=== PATIENT | female | born 1960 | race Caucasian/White ===

== ENCOUNTER 2021-08-07 16:11 | Inpatient (IN) | payer MEDICAID, SELFPAY ==
[2021-08-07] VITALS (7 sets, daily range): BP systolic 116–134; BP diastolic 77–95; PULSE 128–137; RESP 18–22; TEMP 36.5; O2SAT 91–94; BMI 24.7; BMI 23.1
--- NOTE | 2021-08-07 16:13 | W.ED.SOB ---
Documented by User: Tad Manzo DO 08/15/21 14:24 HPI - SOB/Dyspnea General: Chief Complaint: Shortness of Breath/Dyspnea Stated Complaint: RESP DISTRESS Time Seen by Provider: 08/07/21 16:12 Source: patient Mode of arrival: EMS Limitations: no limitations History of Present Illness: HPI Narrative: 61-year-old female presents emergency room complaining of shortness of breath. Patient reports that she was recently treated for pneumonia and hospitalized about 2 weeks ago He has completed the antibiotics within the last week. Comes in today complaining of increasing shortness of breath. She feels like she has been breathing well since then. She has had it moderately productive cough. No chest pain. No vomiting no diarrhea. Patient has a known history of COPD. She does smoke she had been up to 2 packs a day she cut down to 1 pack a day recently because of the illness she has been smoking last. MD elicited complaint: shortness of breath Pertinent past history: COPD Onset (ago): minute(s) Context: recent illness (Recent pneumonia) Timing: constant Severity: moderate Exacerbating factors: exertion and coughing Relieving factors: oxygen, rest, bronchodilators and upright position Known history of: COPD Associated symptoms: Reports chest congestion and cough; Deny abdominal pain, chest pain, diaphoresis, dizziness, extremity pain, fever(s), hemoptysis, lightheadedness, myalgias, nausea, orthopnea, palpitations, paresthesias, polydipsia, polyuria, rash, sense of impending doom, syncope or vomiting Treatment prior to arrival: oxygen and bronchodilator Review of Systems Const: Denies: fever(s), chills or diaphoresis ENMT: Denies: throat pain, ear or mastoid pain, nasal discharge or nasal congestion Card: Denies: chest pain, palpitations, lightheadedness, syncope or orthopnea Resp: Reports: chest congestion; Denies: hemoptysis GI: Denies: abdominal pain, nausea or vomiting : Denies: flank pain, difficulty voiding, dysuria, urinary frequency or urinary urgency Musc: Denies: extremity pain Skin/Breast: Denies: rash or pruritus Neuro: Denies: dizziness Endo: Denies: polyuria or polydipsia PFS ED PFSH: Medical History COPD (chronic obstructive pulmonary disease) Pneumonia Social History Smoking and tobacco status: current every day smoker cigarettes Packs smoked per day: 1 [ Other cigarette details: Former 1 to 2 packs/day] Alcohol intake: current Physical Exam Const: GENERAL APPEARANCE: cooperative and comfortable ORIENTATION/CONSCIOUSNESS: Yes awake, Yes oriented to person, Yes oriented to place and Yes oriented to time HENMT: COMMON NORMALS: normocephalic, atraumatic and hearing grossly normal bilaterally HEAD & SCALP: normocephalic and atraumatic Resp: COMMON NORMALS: No retractions and No use of accessory muscles AUSCULTATION: diminished lung sounds on the right in the lower lung marie Cardio: COMMON NORMALS: regular rhythm and No murmurs present (Cardio) RATE: tachycardic RHYTHM: regular rhythm GI: COMMON NORMALS: Soft to palpation AUSCULTATION: Yes normoactive bowel sounds PALPATION: Yes Soft to palpation, No Tenderness to palpation present (GI), No Guarding due to palpation present (GI) and Yes Hepatomegaly present Extremity: COMMON NORMALS: normal to inspection, capillary refill normal, no clubbing, cyanosis or edema, no calf tenderness and no pedal edema Neuro: SENSORIUM/ORIENTATION: Yes oriented to person, Yes oriented to place and Yes oriented to time Skin: COMMON NORMALS: no rashes or lesions noted GENERAL SKIN EXAM: no rashes or lesions noted Course Vital Signs: Vital signs: Vital Signs Temperature 97.6 F 08/11/21 11:37 Pulse Rate 89 08/11/21 11:37 Respiratory Rate 18 08/11/21 11:37 Blood Pressure 107/69 08/11/21 11:37 Pulse Oximetry 94 08/11/21 11:54 MDM - SOB/Dyspnea Medical Decision Making Care signed out to Dr. Silvestre at change of shift. See final notes for diagnosis and disposition. Sure here isPatient presents here with shortness of breath took her over from Dr. Oconnor. Her CT does show large mass is likely cancerous with a pleural effusion no signs of abscess formation we will start her on antibiotics and admit her here at this time patient's been stable. Lab Data : 08/11/21 03:40 08/08/21 05:02 Labs/Radiology: Radiology Impressions Chest CTA 08/07/21 16:31 IMPRESSION: Infiltrative masslike soft tissue centered within the right lung base invading into the right hilum/mediastinum, early invasion of the right anterior chest wall, right pleura with large volume pleural effusion, and the pericardial fat. There is also masslike infiltration throughout the liver. These findings are compatible with malignancy/metastasis. Thoracentesis Ultrasound 08/08/21 13:30 IMPRESSION: 1. Uncomplicated ultrasound-guided RIGHT thoracentesis. Removal of 1000 cc bloody fluid 2. No pneumothorax on the post thoracentesis radiograph Chest X-Ray 08/08/21 13:47 IMPRESSION: Right lower lobe pleural effusion. No acute findings. Abdomen/Pelvis CT 08/10/21 13:41 IMPRESSION: 1. Too many to count lesions noted throughout the liver. Consistent with diffuse metastatic disease. 2. Renal cysts. 3. Right pleural and right diaphragmatic metastatic deposits as well as a large mass seen in the middle lobe extending to the mediastinum and heart. Laboratory Results WBC 11.7 10^3/uL (4.0-10.0) H 08/07/21 16:25 RBC 4.29 10^6/uL (4.1-5.3) 08/07/21 16:25 Hgb 13.6 g/dL (11.5-15.3) 08/07/21 16:25 Hct 40.0 % (37.0-47.0) 08/07/21 16:25 MCV 93.2 fl (81-99) 08/07/21 16:25 MCH 31.7 pg (28.0-34.0) 08/07/21 16:25 MCHC 34.0 g/dL (30.0-36.0) 08/07/21 16:25 RDW 13.9 % (12.1-15.1) 08/07/21 16:25 Plt Count 450 10^3/cmm (130-400) H 08/07/21 16:25 MPV 10.3 fL (7.4-10.4) 08/07/21 16:25 Neut % (Auto) 79.0 % 08/07/21 16:25 Lymph % (Auto) 12.6 % 08/07/21 16:25 [place] % (Auto) 7.4 % 08/07/21 16:25 Eos % (Auto) 0.0 % 08/07/21 16:25 Baso % (Auto) 0.3 % 08/07/21 16:25 Neut # (Auto) 9.24 10^3/uL (1.8-7.7) H 08/07/21 16:25 Lymph # (Auto) 1.5 10^3/uL (0.8-4.8) 08/07/21 16:25 [place] # (Auto) 0.9 10^3/uL (0.2-0.9) 08/07/21 16:25 Eos # (Auto) 0.0 10^3/uL (0.0-0.8) 08/07/21 16:25 Baso # (Auto) 0.0 10^3/uL (0.0-0.1) 08/07/21 16: Nucleated RBC % (auto) 0 % 08/07/21 16: Nucleated RBCs # 0.0 /100WBC 08/07/21 16:25 Specimen Type Arterial 08/07/21 16:33 Sample Site Radial, left 08/07/21 16:33 ABG pH 7.49 (7.35-7.45) H 08/07/21 16:33 ABG pCO2 23.3 mmHg (35-45) L 08/07/21 16:33 ABG pO2 55.6 mmHg (80.0-100.0) L 08/07/21 16:33 ABG HCO3 17.9 mmol/L (22-26) L 08/07/21 16:33 ABG O2 Saturation 90.6 08/07/21 16:33 ABG Base Excess -3.5 mmol/L (-2.0-2.0) L 08/07/21 16:33 Jero Test Pos 08/07/21 16:33 A-a O2 Gradient 8.3 mmHg (5-10) 08/07/21 16:33 Hematocrit 42.3 % (37-47) 08/07/21 16:33 Hgb O2 Saturation 88.9 % (95-100) L 08/07/21 16:33 Carboxyhemoglobin 0.8 %THgb (0.4-20.1) 08/07/21 16:33 Methemoglobin 1.1 % (0.4-1.5) 08/07/21 16:33 Total Hemoglobin 13.8 g/dL (12-16) 08/07/21 16:33 Sodium 141.0 mmol/L (131-143) 08/07/21 16:33 Potassium 3.0 mmol/L (3.5-5.0) L 08/07/21 16:33 Glucose 144.0 mg/dL (70-115) H 08/07/21 16:33 Ionized Calcium 1.2 mmol/L (1.1-1.4) 08/07/21 16:33 O2 Delivery Device Room air 08/07/21 16:33 FiO2 21.0 % 08/07/21 16:33 Police Specialist ID Cak 08/07/21 16:33 Sodium 138 mmol/L (136-145) 08/07/21 16:25 Potassium 3.3 mmol/L (3.5-5.1) L 08/07/21 16:25 Chloride 99 mmol/L (98-107) 08/07/21 16:25 Carbon Dioxide 17 mmol/L (22-29) L 08/07/21 16:25 Anion Gap 25.3 (5-19) H 08/07/21 16:25 BUN 26 mg/dL (8-23) H 08/07/21 16:25 Creatinine 0.7 mg/dL (0.5-0.9) 08/07/21 16:25 GFR Calculation 84.5 mL/min (90-130) L 08/07/21 16:25 Glucose 145 mg/dL (65-115) H 08/07/21 16:25 Calculated Osmolality 293 mOsm/kg (285-295) 08/07/21 16:25 Calcium 8.8 mg/dL (8.5-10.5) 08/07/21 16:25 Troponin T Baseline 18 ng/L (0-10) H 08/07/21 16:25 Troponin T 120 Minute 16.41 ng/L (0-10) H 08/07/21 18:25 Delta Troponin T -1.59 ABS# (0-10) L 08/07/21 18:25 Discharge Plan Discharge Patient Disposition: Admitted As Inpatient Admit Provider: Bertha Abdi Clinical Impression: Acute respiratory failure with hypoxia, Lung mass, Pleural effusion Condition: Stable Discharge Diet: Cardiac Discharge Activity: Resume usual activity Coding Level of Care Code ED Real Estate Sales Manager for Chg Fwd Exam Detailed Documented by User: Jeff Silvestre MD 08/07/21 19:53 HPI - SOB/Dyspnea General: Chief Complaint: Shortness of Breath/Dyspnea Stated Complaint: RESP DISTRESS Time Seen by Provider: 08/07/21 16:12 PFS ED PFSH: Medical History COPD (chronic obstructive pulmonary disease) Pneumonia Social History Smoking and tobacco status: current every day smoker cigarettes Packs smoked per day: 1 [ Other cigarette details: Former 1 to 2 packs/day] Alcohol intake: current Course Vital Signs: Vital signs: Vital Signs Temperature 97.6 F 08/11/21 11:37 Pulse Rate 89 08/11/21 11:37 Respiratory Rate 18 08/11/21 11:37 Blood Pressure 107/69 08/11/21 11:37 Pulse Oximetry 94 08/11/21 11:54 MDM - SOB/Dyspnea Medical Decision Making Sure here isPatient presents here with shortness of breath took her over from Dr. Oconnor. Her CT does show large mass is likely cancerous with a pleural effusion no signs of abscess formation we will start her on antibiotics and admit her here at this time patient's been stable. Lab Data : 08/11/21 03:40 08/08/21 05:02 Labs/Radiology: Radiology Impressions Chest CTA 08/07/21 16:31 IMPRESSION: Infiltrative masslike soft tissue centered within the right lung base invading into the right hilum/mediastinum, early invasion of the right anterior chest wall, right pleura with large volume pleural effusion, and the pericardial fat. There is also masslike infiltration throughout the liver. These findings are compatible with malignancy/metastasis. Thoracentesis Ultrasound 08/08/21 13:30 IMPRESSION: 1. Uncomplicated ultrasound-guided RIGHT thoracentesis. Removal of 1000 cc bloody fluid 2. No pneumothorax on the post thoracentesis radiograph Chest X-Ray 08/08/21 13:47 IMPRESSION: Right lower lobe pleural effusion. No acute findings. Abdomen/Pelvis CT 08/10/21 13:41 IMPRESSION: 1. Too many to count lesions noted throughout the liver. Consistent with diffuse metastatic disease. 2. Renal cysts. 3. Right pleural and right diaphragmatic metastatic deposits as well as a large mass seen in the middle lobe extending to the mediastinum and heart. Laboratory Results WBC 11.7 10^3/uL (4.0-10.0) H 08/07/21 16:25 RBC 4.29 10^6/uL (4.1-5.3) 08/07/21 16:25 Hgb 13.6 g/dL (11.5-15.3) 08/07/21 16:25 Hct 40.0 % (37.0-47.0) 08/07/21 16:25 MCV 93.2 fl (81-99) 08/07/21 16:25 MCH 31.7 pg (28.0-34.0) 08/07/21 16:25 MCHC 34.0 g/dL (30.0-36.0) 08/07/21 16:25 RDW 13.9 % (12.1-15.1) 08/07/21 16:25 Plt Count 450 10^3/cmm (130-400) H 08/07/21 16:25 MPV 10.3 fL (7.4-10.4) 08/07/21 16:25 Neut % (Auto) 79.0 % 08/07/21 16:25 Lymph % (Auto) 12.6 % 08/07/21 16:25 [place] % (Auto) 7.4 % 08/07/21 16:25 Eos % (Auto) 0.0 % 08/07/21 16:25 Baso % (Auto) 0.3 % 08/07/21 16:25 Neut # (Auto) 9.24 10^3/uL (1.8-7.7) H 08/07/21 16:25 Lymph # (Auto) 1.5 10^3/uL (0.8-4.8) 08/07/21 16:25 [place] # (Auto) 0.9 10^3/uL (0.2-0.9) 08/07/21 16:25 Eos # (Auto) 0.0 10^3/uL (0.0-0.8) 08/07/21 16:25 Baso # (Auto) 0.0 10^3/uL (0.0-0.1) 08/07/21 16:25 Nucleated RBC % (auto) 0 % 08/07/21 16:25 Nucleated RBCs # 0.0 /100WBC 08/07/21 16:25 Specimen Type Arterial 08/07/21 16:33 Sample Site Radial, left 08/07/21 16:33 ABG pH 7.49 (7.35-7.45) H 08/07/21 16:33 ABG pCO2 23.3 mmHg (35-45) L 08/07/21 16:33 ABG pO2 55.6 mmHg (80.0-100.0) L 08/07/21 16:33 ABG HCO3 17.9 mmol/L (22-26) L 08/07/21 16:33 ABG O2 Saturation 90.6 08/07/21 16:33 ABG Base Excess -3.5 mmol/L (-2.0-2.0) L 08/07/21 16:33 Jero Test Pos 08/07/21 16:33 A-a O2 Gradient 8.3 mmHg (5-10) 08/07/21 16:33 Hematocrit 42.3 % (37-47) 08/07/21 16:33 Hgb O2 Saturation 88.9 % (95-100) L 08/07/21 16:33 Carboxyhemoglobin 0.8 %THgb (0.4-20.1) 08/07/21 16:33 Methemoglobin 1.1 % (0.4-1.5) 08/07/21 16:33 Total Hemoglobin 13.8 g/dL (12-16) 08/07/21 16:33 Sodium 141.0 mmol/L (131-143) 08/07/21 16:33 Potassium 3.0 mmol/L (3.5-5.0) L 08/07/21 16:33 Glucose 144.0 mg/dL (70-115) H 08/07/21 16:33 Ionized Calcium 1.2 mmol/L (1.1-1.4) 08/07/21 16:33 O2 Delivery Device Room air 08/07/21 16:33 FiO2 21.0 % 08/07/21 16:33 Police Specialist ID Cak 08/07/21 16:33 Sodium 138 mmol/L (136-145) 08/07/21 16:25 Potassium 3.3 mmol/L (3.5-5.1) L 08/07/21 16:25 Chloride 99 mmol/L (98-107) 08/07/21 16:25 Carbon Dioxide 17 mmol/L (22-29) L 08/07/21 16:25 Anion Gap 25.3 (5-19) H 08/07/21 16:25 BUN 26 mg/dL (8-23) H 08/07/21 16:25 Creatinine 0.7 mg/dL (0.5-0.9) 08/07/21 16:25 GFR Calculation 84.5 mL/min (90-130) L 08/07/21 16:25 Glucose 145 mg/dL (65-115) H 08/07/21 16:25 Calculated Osmolality 293 mOsm/kg (285-295) 08/07/21 16:25 Calcium 8.8 mg/dL (8.5-10.5) 08/07/21 16:25 Troponin T Baseline 18 ng/L (0-10) H 08/07/21 16:25 Troponin T 120 Minute 16.41 ng/L (0-10) H 08/07/21 18:25 Delta Troponin T -1.59 ABS# (0-10) L 08/07/21 18:25 Discharge Plan Discharge Patient Disposition: Admitted As Inpatient Admit Provider: Bertha Abdi Clinical Impression: Acute respiratory failure with hypoxia, Lung mass, Pleural effusion Condition: Stable Discharge Diet: Cardiac Discharge Activity: Resume usual activity Coding Level of Care Code ED Real Estate Sales Manager for Chg Fwd Exam Detailed
--- NOTE | 2021-08-07 16:14 | ECG_ITS ---
[facility] Test Date: 2021-08-07 Pat Name: Yanci Desai Department: Room: Gender: Female Homeowner Association Manager: : 1960 Requested By: Tad Nance Order Number: [id number] Dion MD: Connor Kay M.D. Measurements Intervals [place] Rate: 134 P: 50 NC: 109 QRS: 79 QRSD: 76 T: 62 QT: 328 QTc: 491 Interpretive Statements SINUS TACHYCARDIA WITH SHORT NC INTERVAL Compared to ECG 06/22/2016 06:11:23 Short NC interval now present Sinus rhythm no longer present Myocardial infarct finding no longer present Electronically Signed On 08-07-2021 16:49:16 CDT by Connor Kay M.D. [id number]
--- NOTE | 2021-08-07 16:14 | XRR_ITS ---
PROCEDURE INFORMATION: Exam: XR Chest Exam date and time: 08/07/2021 4:31 PM Age: 61 years old Clinical indication: Cough; Additional info: Dyspnea/cough TECHNIQUE: Imaging protocol: XR of the chest. Views: 1 view. COMPARISON: CR Chest 1 [place] [id number] 06/21/2016 5:38 PM FINDINGS: Lungs: Emphysematous changes. Right lower lobe atelectasis versus infiltrate. Pleural spaces: Large right pleural effusion. Heart/Mediastinum: Unremarkable. No cardiomegaly. Bones/joints: Unremarkable. XR/XR chest 1V portable [id number] IMPRESSION: 1. Large right pleural effusion. 2. Emphysematous changes. 3. Right lower lobe atelectasis versus infiltrate.
--- NOTE | 2021-08-07 16:31 | CTR_ITS ---
PROCEDURE INFORMATION: Exam: CTA Chest With Contrast Exam date and time: 08/07/2021 5:40 PM Age: 61 years old Clinical indication: Shortness of breath; Additional info: Tachycardia/dyspnea TECHNIQUE: Imaging protocol: Computed tomographic angiography of the chest with contrast. 3D rendering (Not supervised by radiologist): MIP and/or 3D reconstructed images were created by the technologist. Radiation optimization: All CT scans at this facility use at least one of these dose optimization techniques: automated exposure control; mA and/or kV adjustment per patient size (includes targeted exams where dose is matched to clinical indication); or iterative reconstruction. Contrast material: OMNIPAQUE 350; Contrast volume: 95 ml; Contrast route: INTRAVENOUS (IV); COMPARISON: CR (CHEST, ) 08/07/2021 4:31 PM RADIATION DOSE METRICS: Total DLP (mGy-cm): 605.95 FINDINGS: Pulmonary arteries: Normal. No pulmonary emboli. Aorta: No aortic aneurysm. No aortic dissection. Lungs: Infiltrative lobulated masslike tissues centered within the right lower lung seen invading into the right hilum and mediastinum. There is also irregular lobulated masslike soft tissue within the surrounding pleura with large volume pleural effusion and early invasion into the right anterior chest wall deep to the right breast. It is also seen extending into the pericardial fat pad. No masses seen in the contralateral left lung. Advanced emphysematous changes of the lungs noted. Pleural spaces: Please see lung section. Heart: Please see lung section. No cardiomegaly. No pericardial effusion. Lymph nodes: Please see lung section. Liver: Diffuse ill-defined masslike infiltration throughout the liver. Bones/joints: No acute fracture. No aggressive osseous lesion. Soft tissues: Please see lung section. CT/CT angio chest PE protcl [id number] IMPRESSION: Infiltrative masslike soft tissue centered within the right lung base invading into the right hilum/mediastinum, early invasion of the right anterior chest wall, right pleura with large volume pleural effusion, and the pericardial fat. There is also masslike infiltration throughout the liver. These findings are compatible with malignancy/metastasis.
[2021-08-07 16:37] LABS: Basophils % 0.3 %; Hemoglobin 13.6 g/dL (11.5-15.3); Lymphocytes # 1.5 10^3/uL (0.8-4.8); Lymphocytes % 12.6 %; Mean Corpuscular Hemoglobin 31.7 pg (28.0-34.0); Mean Corpuscular Volume 93.2 fl (81-99); Mean Platelet Volume 10.3 fL (7.4-10.4); Monocytes # 0.9 10^3/uL (0.2-0.9); Monocytes % 7.4 %; Neutrophils # 9.24 10^3/uL (1.8-7.7); Nucleated Red Blood Cells % 0 %; Platelet Count 450 10^3/cmm (130-400); Red Blood Count 4.29 10^6/uL (4.1-5.3); Red Cell Distribution Width 13.9 % (12.1-15.1); White Blood Count 11.7 10^3/uL (4.0-10.0)
[2021-08-07 16:44] LABS: ABG PCO2 23.3 mmHg (35-45); ABG PH Result 7.49 (7.35-7.45); Alveolar-Arterial Oxygen Gradi 8.3 mmHg (5-10); Arterial Blood Gas Hematocrit 42.3 % (37-47); Base Excess ABG -3.5 mmol/L (-2.0-2.0); Blood Gas Allen Test Pos; Blood Gas Operator Identificat CAK; Blood Gas Sample Site Radial, left; Blood Gas Sample Type Arterial; Carboxyhemoglobin 0.8 %THgb (0.4-20.1); HCO3 ABG 17.9 mmol/L (22-26); HGB O2 Sat 88.9 % (95-100); Ionized Calcium Level - ABG 1.2 mmol/L (1.1-1.4); Methemoglobin 1.1 % (0.4-1.5); Oxygen Device ROOM AIR; Oxygen Saturation ABG 90.6; PO2 ABG 55.6 mmHg (80.0-100.0); Total Hemoglobin 13.8 g/dL (12-16)
[2021-08-07 16:57] LABS: Anion Gap 25.3 (5-19); Blood Urea Nitrogen 26 mg/dL (8-23); Calcium 8.8 mg/dL (8.5-10.5); Carbon Dioxide 17 mmol/L (22-29); Chloride 99 mmol/L (98-107); Glomerular Filtration Rate 84.5 mL/min (90-130); Glucose 145 mg/dL (65-115); Osmolality Calculated 293 mOsm/kg (285-295); Potassium 3.3 mmol/L (3.5-5.1); Sodium 138 mmol/L (136-145)
[2021-08-07] MEDS: iohexol 350 mg/mL 100 mL Btl IV (17:40)
[2021-08-07 17:42] LABS: Troponin(5th) Baseline 18 ng/L (0-10)
--- NOTE | 2021-08-07 18:30 | ECG_ITS ---
[facility] Test Date: 2021-08-07 Pat Name: Yanci Desai Department: Room: Gender: Female Maintenance Technician 3Rd Shift: : 1960 Requested By: Tad Nance Order Number: [id number] Dion MD: Connor Kay M.D. Measurements Intervals [place] Rate: 130 P: 66 AR: 118 QRS: 80 QRSD: 72 T: 60 QT: 343 QTc: 505 Interpretive Statements SINUS TACHYCARDIA WITH SHORT AR INTERVAL Compared to ECG 08/07/2021 16:28:02 No significant changes Electronically Signed On 08-07-2021 23:51:35 CDT by Connor Kay M.D. [id number]
[2021-08-07] MEDS: piperacillin-tazobactam 3.375 GM in sodium chloride 0.9% (plus) 50 ML IV (18:42)
--- NOTE | 2021-08-07 19:02 | PC.NURSE ---
Pt c/o pain to IV site, zosyn infusion stopped. Will attempt a new IV.
[2021-08-07 19:09] LABS: Troponin 5 2HR 16.41 ng/L (0-10)
[2021-08-07 19:10] LABS: Troponin 5 2HR Delta -1.59 ABS# (0-10)
[2021-08-07] MEDS: vancomycin 1,000 MG in sodium chloride 0.9% 250 ML 250 MG IV (19:19)
[2021-08-07] MEDS: metoprolol tartrate 25 mg Tablet 37.5 MG PO (21:33)
[2021-08-07] MEDS: enoxaparin 40 mg/0.4 mL Syringe SUBCUT (21:33)
[2021-08-07] MEDS: HYDROcodone-acetaminophen 5-325 mg Tablet 1 TAB PO (21:33)
[2021-08-07] MEDS: cefepime 1,000 MG in sodium chloride 0.9% (plus) 50 ML 100 MG IV (21:53)
--- NOTE | 2021-08-07 22:30 | ECG_ITS ---
[facility] Test Date: 2021-08-07 Pat Name: Yanci Desai Department: Room: 263 Gender: Female Medical Research Assistant: : 1960 Requested By: Tad Nance Order Number: [id number] Dion MD: Christi Bolton M.D. Measurements Intervals [place] Rate: 92 P: 32 CO: 115 QRS: 57 QRSD: 80 T: 52 QT: 411 QTc: 509 Interpretive Statements SINUS RHYTHM WITH SHORT CO INTERVAL SEPTAL MYOCARDIAL INFARCTION , OF INDETERMINATE AGE [40+ ms Q WAVE IN V1/V2] Compared to ECG 08/07/2021 18:27:44 Myocardial infarct finding now present Sinus tachycardia no longer present Electronically Signed On 08-08-2021 20:58:29 CDT by Christi Bolton M.D. [id number]
--- NOTE | 2021-08-07 23:49 | P.HP_ITS ---
Providers/Chief Complaint Admitting Physician: Bertha Abdi MD Primary Care Provider: Bethel Michaels Chief Complaint: RESP DISTRESS History of Present Illness Yanci Desai is a 61 year old female with h/o COPD and tobacco use who presented to ED with worsening dyspnea. Patient states she was seen at clinic approximately 2 weeks ago and was given antibiotics for pneumonia. Patient states she continued to worsen at home. She has a productive cough. Dyspnea worse with exertion but also present at rest. She denies chest pain. She states she was told she has an irregular heart rate and is on metoprolol, but no anticoagulation besides aspirin 81 mg. She denies h/o CAD. She is a long time smoker. Evaluation in ED significant for tachycardia and hypoxia with sats of 80 percent on RA. Patient is not on home oxygen. CT reveals infiltrative mass right lung with extension into hilum and mediastinum and right sided pleural effusion. Patient admitted for further management Patient received zosyn and vancomycin in ED as well as a dose of solumedrol Review of Systems General: Reports: 10 or more systems reviewed and unremarkable except in HPI and below Const: Reports: body aches, fatigue and malaise; Denies: fever(s) or chills Eyes: Denies: change in vision or blurry vision ENMT: Denies: throat pain or hoarseness Card: Reports: dyspnea on exertion; Denies: chest pain, palpitations, edema or lightheadedness Resp: Reports: dyspnea, productive cough and wheezing; Denies: hemoptysis GI: Denies: abdominal pain, nausea, vomiting, diarrhea or constipation : Denies: flank pain, difficulty voiding or urinary frequency Skin/Breast: Denies: rash, pruritus, erythema or skin tenderness Neuro: Denies: headache(s), numbness in extremities, weakness in extremities or sensory changes Psych: Denies: anxiety, depression or mood swings Endo: Reports: tired all the time; Denies: polyuria or polydipsia Lawson/Lymph: Denies: easy bruising or easy bleeding Medications/Allergies Home Medications Medication Instructions Recorded Confirmed Last Taken Type acetazolamide 250 mg tablet 250 mg PO DAILY 08/07/21 08/07/21 08/07/21 History aspirin 81 mg tablet,delayed 81 mg PO DAILY 08/07/21 08/07/21 08/07/21 History release famotidine 20 mg tablet 40 mg PO BID 08/07/21 08/07/21 08/07/21 History metoprolol tartrate 75 mg tablet See Rx Instructions .ROUTE .COMPLEX 08/07/21 08/07/21 08/07/21 History Allergies Allergy/AdvReac Type Severity Reaction Status Date / Time aspirin Allergy ADR-Nausea Verified 08/07/21 16:22 oxycodone [From OxyContin] Allergy ADR-Halluci Verified 08/07/21 16:21 nating trazodone Allergy ADR-Headach Verified 08/07/21 16:22 e PFSH Acute PFSH: Medical History COPD (chronic obstructive pulmonary disease) Pneumonia Social History Smoking and tobacco status: current every day smoker cigarettes Packs smoked per day: 1 [ Other cigarette details: Former 1 to 2 packs/day] Alcohol intake: current Vitals/I&O/Wt Last Vital Signs Temp 97.7 F 08/07/21 20:25 Pulse 131 H 08/07/21 20:25 Resp 21 H 08/07/21 20:25 BP 134/91 08/07/21 20:25 Pulse Ox 92 08/07/21 20:25 08/07/21 08/07/21 08/08/21 14:59 22:59 06:59 Intake Total 540 / 540 50 / 590 Output Total 300 / 300 Balance 240 / 240 50 / 290 Weight last 48 hrs Weight 61.235 kg Weight 65.317 kg Physical Exam Const: COMMON NORMALS: patient oriented x3 GENERAL APPEARANCE: anxious and ill appearing HENMT: HEAD & SCALP: normocephalic and atraumatic Neck/C-Spine: GENERAL: Yes trachea midline, No anterior neck swelling and No lymphadenopathy Chest: CHEST: Yes Symmetrical chest wall rise Resp: EFFORT & INSPECTION: Yes tachypneic and Yes Actively coughing AUSCULTATION: wheezes and diminished lung sounds Cardio: RATE: regular rate RHYTHM: regular rhythm HEART SOUNDS: S1 normal heart sound present, S2 normal heart sound present and no murmurs GI: COMMON NORMALS: Normal to inspection, nondistended, normoactive bowel sounds present, Soft to palpation, non-tender and No hepatosplenomegaly present Back/Pelvis: COMMON NORMALS: no CVA tenderness and thoracic and lumbar spine normal to inspection Extremity: GENERAL: No clubbing, No cyanosis and No edema Neuro: COMMON NORMALS: patient oriented x3, moves all extremities, no focal motor deficits, no sensory deficits noted and gait normal Psych: APPEARANCE: Yes grossly normal ACTIVITY/MOTOR BEHAVIOR: Yes appropriate eye contact MOOD & AFFECT: Yes anxious THOUGHT PROCESS: Normal thought process present ATTENTION/CONCENTRATION: Yes attention grossly intact MEMORY/COGNITION: Yes memory grossly intact and Yes cognition grossly intact JUDGEMENT: Good judgement present (Psych) Skin: GENERAL SKIN EXAM: rashes and/or lesions noted and turgor normal Data : 08/07/21 16:25 08/07/21 16:25 Micro: Microbiology 08/07/21 18:43 Blood Culture - Preliminary Blood SPECIMEN COLLECTED 08/07/21 18:25 Blood Culture - Preliminary Blood SPECIMEN COLLECTED A&P Assessment and plan (1) Acute respiratory failure with hypoxia: Patient with h/o COPD and tobacco use, recently treated as an outpatient for pneumonia, presented with worsening dyspnea and cough and hypoxia. ABG obtained and noted with ph of 7.49/PCO2 of 23/PO2 of 55 on RA- patient placed on 3 L supplemental oxygen by nasal cannula CTA negative for PE- infiltrative mass right lung base invading right hilum and mediastinum, early invasion of anterior chest wall, and right pleura with large pleural effusion as well as masslike infiltrate thru liver , consistent with malignancy/mets. Patient given vanc and zosyn in ED as well as solumedrol. Although unlikely to be infectious, she may have some superimposed pneumonia, therefore we will continue with Abx and give cefepime Supplemental oxygen, nebs Pulmonary consult or IR for definitive tissue diagnosis of lung/pleural based mass. Monitor closely Status: Acute (2) Lung mass: As noted above Status: Acute (3) Pleural effusion: As noted above- likely malignant- may be able to undergo thoracentesis in AM for further testing Status: Acute (4) Pneumonia: Cefepime Follow blood and sputum cultures Status: Acute (5) COPD (chronic obstructive pulmonary disease): Oxygen and nebs prn Status: Acute Attestations Medical Necessity Statement*: Anticipated stay greater than 2 midnights in this patient with acute respiratory failure with hypoxia and lung mass with metastasis, requiring close monitoring and further diagnostic testing Coding Level of Care Code Acute Fixed Wing Aircraft Flight Mechanic for Chg Fwd History Detailed Medical Decision Making Moderate Complexity Diagnoses Acute respiratory failure with hypoxia J96.01 Lung mass R91.8 Pleural effusion J90 Pneumonia J18.9 COPD (chronic obstructive pulmonary disease) J44.9
[2021-08-08] VITALS (13 sets, daily range): BP systolic 94–115; BP diastolic 58–72; PULSE 83–106; RESP 16–23; TEMP 36.4–36.8; O2SAT 22–94
[2021-08-08 05:57] LABS: Basophils % 0.1 %; Hematocrit 39.7 % (37.0-47.0); Hemoglobin 13.1 g/dL (11.5-15.3); Lymphocytes # 1.5 10^3/uL (0.8-4.8); Lymphocytes % 12.1 %; Mean Corpuscular Volume 94.1 fl (81-99); Mean Platelet Volume 10.9 fL (7.4-10.4); Monocytes # 0.8 10^3/uL (0.2-0.9); Monocytes % 6.1 %; Neutrophils # 10.12 10^3/uL (1.8-7.7); Nucleated Red Blood Cells % 0 %; Platelet Count 414 10^3/cmm (130-400); Red Blood Count 4.22 10^6/uL (4.1-5.3); Red Cell Distribution Width 14.2 % (12.1-15.1); White Blood Count 12.5 10^3/uL (4.0-10.0)
[2021-08-08 06:27] LABS: Anion Gap 21.6 (5-19); Blood Urea Nitrogen 28 mg/dL (8-23); Calcium 9.9 mg/dL (8.5-10.5); Carbon Dioxide 20 mmol/L (22-29); Chloride 102 mmol/L (98-107); Glomerular Filtration Rate 72.4 mL/min (90-130); Glucose 137 mg/dL (65-115); Osmolality Calculated 298 mOsm/kg (285-295); Potassium 3.6 mmol/L (3.5-5.1); Sodium 140 mmol/L (136-145)
[2021-08-08] MEDS: aspirin 81 mg EC Tablet PO (08:15)
[2021-08-08] MEDS: famotidine 20 mg Tablet 40 MG PO ×2 (08:15→17:51)
[2021-08-08] MEDS: metoprolol tartrate 25 mg Tablet 37.5 MG PO ×2 (08:16→17:51)
[2021-08-08] MEDS: cefepime 1,000 MG in sodium chloride 0.9% (plus) 50 ML 100 MG IV ×2 (08:17→20:38)
[2021-08-08] MEDS: HYDROcodone-acetaminophen 5-325 mg Tablet 1 TAB PO ×2 (08:21→17:52)
[2021-08-08] MEDS: acetaZOLAMIDE 250 mg Tablet PO (08:21)
[2021-08-08] MEDS: ondansetron 2 mg/ML SDV 2 mL 4 MG IVP (09:27)
--- NOTE | 2021-08-08 10:36 | PC.CHAP ---
Pastoral Care Encounter/Spiritual Assessment Type of Contact [] Declined linux kernel developer visit [] Patient/Family/Request visit [] Outpatient visit [] Follow-up visit [] Physician referral [] Code/Alert [x] Routine visit [] Staff referral [] Actively dying [] Patient sleeping [] Family support [] [] Out of room [] Palliative care [] [] Receiving care in room [] Pre-surgical visit [] Trauma [] Long length of stay [] ICU visit [] Other: Relational/Emotional Strength [x] Patient feels connected with others/family/visitors/staff [] Distress [] Loneliness/isolation [] Abandonment Spirituality of Patient [x] Person of Juany [x] Attends Rastafari of their Juany [x] Believes in Prayer [] Reads Bible or Anabaptism materials [] There are Spiritual issues to be addressed Analytics Director Interventions x[] Prayer [x] Active listening [] Non-anxious presence [x] Spiritual/emotional support [] Crisis/trauma care [] Spiritual counseling [] Bereavement support [] Provided bereavement packet [] Provided Bible/devotional materials [] Provided toy/stuffed animal, coloring book to patient or family member [] Provided Communion [] Anointing/[place] [] Salvation [x] Completed spiritual assessment [] Other: Impact on Illness or Injury [] Angry [] Fearful [] Anxious [] Often cries [] Exhaustion [] Unable to work [] Unable to attend uatsdin [] Unable to walk/stand [] Unable to read [] Unable to drive [] Unable to eat/drink [] Unable to sleep [] Unable to be with family [] Patient intubated [] Other: Summary Time spent with patient 10 min
--- NOTE | 2021-08-08 13:30 | US_ITS ---
WS: [id number] ULTRASOUND-GUIDED THORACENTESIS CLINICAL INFORMATION: pleural effusion, susp malign COMPARISON: None. PROCEDURE: Informed consent: The risks, benefits, and alternatives of the procedure were discussed with the marion ent. Verbal and written consent was obtained. Timeout: A timeout was performed to confirm the correct patient, procedure, and site. Site: RIGHT chest Preparation: A suitable skin site was identified. The patient was prepped and draped in usual sterile fashion. Lidocaine 1% was used for local anesthesia. Catheter: 4 Scottish One-Step catheter. Fluid Volume: 1000 ml Color: Dark bloody 50 cc sent to lab for further analysis. Complications: None. / thoracentesis [id number] IMPRESSION: 1. Uncomplicated ultrasound-guided RIGHT thoracentesis. Removal of 1000 cc blo letty fluid 2. No pneumothorax on the post thoracentesis radiograph
--- NOTE | 2021-08-08 13:47 | XRR_ITS ---
PROCEDURE INFORMATION: Exam: XR Chest Exam date and time: 08/08/2021 1:56 PM Age: 61 years old Clinical indication: Screening exam; Other screening; Additional info: Post thoracentesis TECHNIQUE: Imaging protocol: XR of the chest. Views: 1 view. COMPARISON: CR (CHEST, ) 08/07/2021 4:31 PM FINDINGS: Lungs: Unremarkable. No consolidation. Pleural spaces: Right lower lobe pleural effusion. This finding is similar to prior. No pneumothorax. Heart/Mediastinum: Unremarkable. No cardiomegaly. Bones/joints: Unremarkable. XR/XR chest 1V portable [id number] IMPRESSION: Right lower lobe pleural effusion. No acute findings.
[2021-08-08 14:20] LABS: Apprearance, Body Fluid BLOODY; Color, Body Fluid RED
[2021-08-08 14:21] LABS: PATH Referral YES
[2021-08-08 14:24] LABS: Body Fluid Polynuclear #Cells 0.136; Body Fluid WBC 2396 /uL
[2021-08-08 14:45] LABS: Cholesterol Body Fluid 142 mg/dL (0-200); LDH Body Fluid 611 U/L; Total Protein Pleural Fluid 4.4 g/dL; Triglycerides Body Fluid 63 mg/dL (0-150)
--- NOTE | 2021-08-08 19:58 | P.PN_ITS ---
Subjective Subjective: She is feeling slightly better. She has been requiring nasal cannula oxygen. She has not required oxygen supplementation previously. Denies chest pain or pressure. Denies abdominal pain or discomfort. Son is visiting her here from [place], but has to go back this weekend. She reports she has no way of coming back for biopsy to the hospital. Vitals/I&O/Wt Last Vital Signs Temp 97.7 F 08/08/21 19:44 Pulse 87 08/08/21 19:44 Resp 16 08/08/21 19:44 BP 105/69 08/08/21 19:44 Pulse Ox 94 08/08/21 19:44 08/08/21 08/08/21 08/08/21 06:59 14:59 22:59 Intake Total 50 / 590 50 / 50 120 / 170 Balance 50 / 290 50 / 50 120 / 170 Weight last 48 hrs Weight 61.326 kg Weight 61.235 kg Weight 65.317 kg Physical Exam Narrative: Son at bedside Const: COMMON NORMALS: alert GENERAL APPEARANCE: cooperative ORIENTATION/CONSCIOUSNESS: Yes awake HENMT: COMMON NORMALS: normocephalic, EAC's normal, Normal external nose present and moist oral mucous membranes HEAD & SCALP: normocephalic NOSE: Normal external nose present EXTERNAL AUDITORY CANAL: EAC's normal Neck/C-Spine: COMMON NORMALS: no meningeal signs Chest: CHEST: Yes Symmetrical chest wall rise Resp: AUSCULTATION: diminished lung sounds on the right in the lower lung marie Cardio: COMMON NORMALS: regular rate, regular rhythm and No murmurs present (Cardio) RATE: regular rate RHYTHM: regular rhythm GI: COMMON NORMALS: Normal to inspection, nondistended, normoactive bowel sounds present, Soft to palpation and non-tender PALPATION: Yes Soft to palpation Extremity: COMMON NORMALS: no pedal edema Neuro: COMMON NORMALS: moves all extremities SENSORIUM/ORIENTATION: Yes alert MENINGEAL SIGNS: Yes no meningeal signs Psych: COMMON NORMALS: mental status grossly normal Skin: COMMON NORMALS: no wounds RASHES: no rashes Data : 08/08/21 05:02 08/08/21 05:02 Micro: Microbiology 08/07/21 18:43 Blood Culture - Preliminary Blood NEGATIVE TO DATE 08/07/21 18:25 Blood Culture - Preliminary Blood NEGATIVE TO DATE 08/07/21 08:25 Gram Stain - Final Sputum - Expectorated Sputum A&P Assessment and plan (1) Acute respiratory failure with hypoxia: Large right pleural effusion with metastatic malignancy noted on imaging. Discussed with radiology, underwent thoracentesis today. Monitor oxygenation. She may have difficulties with obtaining oxygen to take home. She also states she cannot come back for biopsy the hospital which was going to be planned for Wednesday on return of radiology. We will discussed with case management to see if there are options to assist with transplantation. She is being visited by her son but he has to go back to [place] this weekend. Possible superimposed pneumonia, continue Abx Supplemental oxygen, nebs Status: Acute (2) Lung mass: As noted above Status: Acute (3) Pleural effusion: As noted above- likely malignant- may be able to undergo thoracentesis in AM for further testing Status: Acute (4) Pneumonia: Cefepime Follow blood and sputum cultures Status: Acute (5) COPD (chronic obstructive pulmonary disease): Oxygen and nebs prn Status: Acute Attestations Medical Necessity Statement*: Continue admission for assessment and management of hypoxia, possible pneumonia, initiation of diagnostic evaluation of newly found metastatic malignancy in a lady with transportation difficulties and difficulties with access to healthcare. Post discharge planning. Coding Level of Care Code Acute Fact Checker for Nadya Godfrey Diagnoses Acute respiratory failure with hypoxia J96.01 Lung mass R91.8 Pleural effusion J90 Pneumonia J18.9 COPD (chronic obstructive pulmonary disease) J44.9
[2021-08-09] VITALS (8 sets, daily range): BP systolic 87–109; BP diastolic 54–68; PULSE 86–99; RESP 16–17; TEMP 36.4–36.8; O2SAT 90–95
[2021-08-09 04:44] LABS: Basophils % 0.2 %; Hematocrit 35.8 % (37.0-47.0); Lymphocytes # 2.7 10^3/uL (0.8-4.8); Lymphocytes % 20.3 %; Mean Corpuscular HGB Conc 33.5 g/dL (30.0-36.0); Mean Corpuscular Hemoglobin 31.9 pg (28.0-34.0); Mean Corpuscular Volume 95.2 fl (81-99); Mean Platelet Volume 10.3 fL (7.4-10.4); Monocytes # 1.1 10^3/uL (0.2-0.9); Monocytes % 8.3 %; Neutrophils # 9.27 10^3/uL (1.8-7.7); Neutrophils % 70.8 %; Nucleated Red Blood Cells % 0 %; Platelet Count 369 10^3/cmm (130-400); Red Blood Count 3.76 10^6/uL (4.1-5.3); Red Cell Distribution Width 14.4 % (12.1-15.1); White Blood Count 13.1 10^3/uL (4.0-10.0)
[2021-08-09] MEDS: HYDROcodone-acetaminophen 5-325 mg Tablet 1 TAB PO ×4 (04:45→22:08)
--- NOTE | 2021-08-09 05:16 | PC.NURSE ---
Patient vitals have been stable. Patient complains of back pain so this nurse administered pain medication. No other complaints were voiced to staff.
[2021-08-09] MEDS: famotidine 20 mg Tablet 40 MG PO ×2 (08:13→17:22)
[2021-08-09] MEDS: cefepime 1,000 MG in sodium chloride 0.9% (plus) 50 ML 100 MG IV ×2 (08:13→20:12)
[2021-08-09] MEDS: metoprolol tartrate 25 mg Tablet 37.5 MG PO (08:13)
[2021-08-09] MEDS: acetaZOLAMIDE 250 mg Tablet PO (08:13)
--- NOTE | 2021-08-09 19:01 | PM.PN ---
Subjective Subjective: She is not feeling that much better. Still coughing, productive cough. Breathing slightly easier, but still dyspneic. Tells me she is taking aspirin due to having some irregular heartbeat. Denies history of ME or stents. Vitals/I&O/Wt Last Vital Signs Temp 97.7 F 08/09/21 15:53 Pulse 96 08/09/21 15:53 Resp 16 08/09/21 15:53 BP 91/58 08/09/21 15:53 Pulse Ox 94 08/09/21 15:53 08/09/21 08/09/21 08/09/21 06:59 14:59 22:59 Intake Total 290 / 290 240 / 530 Output Total 300 / 300 200 / 200 Balance -300 / -80 90 / 90 240 / 330 Weight last 48 hrs Weight 61.326 kg Weight 61.235 kg Physical Exam Narrative: Coughing Const: COMMON NORMALS: alert GENERAL APPEARANCE: cooperative ORIENTATION/CONSCIOUSNESS: Yes awake HENMT: COMMON NORMALS: normocephalic, EAC's normal, Normal external nose present and moist oral mucous membranes HEAD & SCALP: normocephalic NOSE: Normal external nose present EXTERNAL AUDITORY CANAL: EAC's normal Neck/C-Spine: COMMON NORMALS: no meningeal signs Chest: CHEST: Yes Symmetrical chest wall rise Resp: AUSCULTATION: diminished lung sounds on the right in the lower lung marie Cardio: COMMON NORMALS: regular rate, regular rhythm and No murmurs present (Cardio) RATE: regular rate RHYTHM: regular rhythm GI: COMMON NORMALS: Normal to inspection, nondistended, normoactive bowel sounds present, Soft to palpation and non-tender PALPATION: Yes Soft to palpation Extremity: COMMON NORMALS: no pedal edema Neuro: COMMON NORMALS: moves all extremities SENSORIUM/ORIENTATION: Yes alert MENINGEAL SIGNS: Yes no meningeal signs Psych: COMMON NORMALS: mental status grossly normal Skin: COMMON NORMALS: no wounds RASHES: no rashes Data : 08/09/21 04:35 08/08/21 05:02 Micro: Microbiology 08/07/21 08:25 Gram Stain - Final Sputum - Expectorated Sputum Sputum Culture - Preliminary 08/08/21 13:53 Gram Stain - Final Pleural Fluid 08/07/21 18:43 Blood Culture - Preliminary Blood NEGATIVE TO DATE 08/07/21 18:25 Blood Culture - Preliminary Blood NEGATIVE TO DATE A&P Assessment and plan (1) Acute respiratory failure with hypoxia: S/p thoracentesis 1 L, exudative effusion, bloody. Discussed with her. Continue to hold aspirin, hold off anticoagulation for now. SCD for DVT prophylaxis. She is still coughing, still requiring oxygen. Continue also empiric antibiotics at this time for possible superimposed pneumonia. Fluid gram stain without organisms. Tells me her home is currently not prepared to receive her with oxygen. Her is making arrangements to clear out space for oxygen equipment, as well as away from sections of a caved in roof. Status: Acute (2) Lung mass: Will need tissue sampling/biopsy on Wednesday with IR. Hold aspirin. Status: Acute (3) Pleural effusion: Cytology requested. Cultures pending. Bloody, exudative effusion. Status: Acute (4) Pneumonia: Cefepime Follow blood and sputum cultures Status: Acute (5) COPD (chronic obstructive pulmonary disease): Oxygen and nebs prn Status: Acute Attestations Medical Necessity Statement*: Continue admission for assessment management of hypoxia, pneumonia, diagnostic work-up of metastatic malignancy in a lady with difficult access to healthcare. Coding Level of Care Code Acute Computer Systems Security Analyst for [facility] [employer]an[employer] Diagnoses Acute respiratory failure with hypoxia J96.01 Lung mass R91.8 Pleural effusion J90 Pneumonia J18.9 COPD (chronic obstructive pulmonary disease) J44.9
[2021-08-10 04:00] VITALS: BP 105/65; PULSE 100; RESP 16; TEMP 36.9; O2SAT 90
[2021-08-10 04:56] LABS: Basophils % 0.3 %; Eosinophils % 0.4 %; Hematocrit 35.8 % (37.0-47.0); Hemoglobin 11.6 g/dL (11.5-15.3); Lymphocytes # 2.1 10^3/uL (0.8-4.8); Lymphocytes % 23.5 %; Mean Corpuscular HGB Conc 32.4 g/dL (30.0-36.0); Mean Corpuscular Hemoglobin 31.4 pg (28.0-34.0); Mean Corpuscular Volume 96.8 fl (81-99); Mean Platelet Volume 10.7 fL (7.4-10.4); Monocytes % 11.3 %; Neutrophils % 63.6 %; Nucleated Red Blood Cells % 0 %; Platelet Count 336 10^3/cmm (130-400); Red Cell Distribution Width 14.3 % (12.1-15.1)
[2021-08-10 07:17] VITALS: BP 110/74; PULSE 117; RESP 17; TEMP 36.6; O2SAT 96
[2021-08-10 07:30] VITALS: PULSE 113; RESP 16; O2SAT 94
[2021-08-10] MEDS: HYDROcodone-acetaminophen 5-325 mg Tablet 1 TAB PO ×4 (07:35→23:44)
[2021-08-10] MEDS: cefepime 1,000 MG in sodium chloride 0.9% (plus) 50 ML 100 MG IV ×2 (09:17→20:25)
[2021-08-10] MEDS: metoprolol tartrate 25 mg Tablet 37.5 MG PO ×2 (09:17→17:39)
[2021-08-10] MEDS: acetaZOLAMIDE 250 mg Tablet PO (09:18)
[2021-08-10] MEDS: famotidine 20 mg Tablet 40 MG PO ×2 (09:18→17:38)
[2021-08-10] MEDS: ondansetron 2 mg/ML SDV 2 mL 4 MG IVP ×2 (11:49→20:12)
[2021-08-10 12:00] VITALS: BP 100/66; PULSE 92; RESP 16; TEMP 36.6; O2SAT 93
--- NOTE | 2021-08-10 13:41 | CTR_ITS ---
PROCEDURE INFORMATION: Exam: CT Abdomen And Pelvis With Contrast Exam date and time: 08/10/2021 2:55 PM Age: 61 years old Clinical indication: Condition or disease; Prior surgery; Surgery date: 6+ months; Surgery type: Gb, hyst; Patient HX: R lung mass w hilum and mediastinal extension; Additional info: Metastatic malignancy TECHNIQUE: Imaging protocol: Computed tomography of the abdomen and pelvis with contrast. Radiation optimization: All CT scans at this facility use at least one of these dose optimization techniques: automated exposure control; mA and/or kV adjustment per patient size (includes targeted exams where dose is matched to clinical indication); or iterative reconstruction. Contrast material: OMNI 300; Contrast volume: 95 ml; Contrast route: INTRAVENOUS (IV); COMPARISON: CT abdomen pelvis wo con [id number] 04/28/2016 9:10 PM RADIATION DOSE METRICS: Total DLP (mGy-cm): 1030.83 FINDINGS: Lungs: Multiple masses noted involving the right lung base with a large confluent mass measuring over 96 x 84 mm extending to the heart. Clear left lung base. Pleural spaces: Right pleural effusion. Multiple nodules noted involving the right pleura and right hemidiaphragm are suggestive of pleural metastatic disease. Right lower lobe consolidation. Liver: Enlarged liver measuring 204 mm. Too many to count lesions throughout the liver. The largest which is central measuring over 55 x 66 mm. Gallbladder and bile ducts: Cholecystectomy clips. Pancreas: Normal. No ductal dilation. Spleen: Normal. No splenomegaly. Adrenal glands: Normal. No mass. Kidneys and ureters: Stable exophytic left renal cyst 26 mm. Unremarkable right kidney. Stable 16 mm superior pole left renal cyst since the chest CT angiogram. Stomach and bowel: Scattered colonic diverticula. No evidence of acute diverticulitis. Appendix: No evidence of appendicitis. Intraperitoneal space: Unremarkable. No free air. No significant fluid collection. Vasculature: Unremarkable. No abdominal aortic aneurysm. Lymph nodes: Unremarkable. No enlarged lymph nodes. Urinary bladder: Unremarkable as visualized. Reproductive: Unremarkable as visualized. Bones/joints: Unremarkable. No acute fracture. Soft tissues: Unremarkable. CT/CT abdomen pelvis w con* [id number] IMPRESSION: 1. Too many to count lesions noted throughout the liver. Consistent with diffuse metastatic disease. 2. Renal cysts. 3. Right pleural and right diaphragmatic metastatic deposits as well as a large mass seen in the middle lobe extending to the mediastinum and heart.
[2021-08-10] MEDS: iohexol 300 mg/mL 100 mL Btl IV (14:55)
[2021-08-10 15:30] VITALS: BP 100/63; PULSE 88; RESP 16; TEMP 36.4; O2SAT 96
--- NOTE | 2021-08-10 19:46 | P.PN_ITS ---
Subjective Subjective: She feels slightly better today. Still coughing. Still short of breath. No abdominal pain. Vitals/I&O/Wt Last Vital Signs Temp 97.6 F 08/10/21 15:30 Pulse 88 08/10/21 15:30 Resp 16 08/10/21 15:30 BP 100/63 08/10/21 15:30 Pulse Ox 96 08/10/21 15:30 08/10/21 08/10/21 08/10/21 06:59 14:59 22:59 Intake Total 170 / 170 240 / 410 Output Total 650 / 850 200 / 200 Balance -650 / -150 170 / 170 40 / 210 Physical Exam Const: COMMON NORMALS: alert GENERAL APPEARANCE: cooperative ORIENTATION/CONSCIOUSNESS: Yes awake HENMT: COMMON NORMALS: normocephalic, EAC's normal, Normal external nose present and moist oral mucous membranes HEAD & SCALP: normocephalic NOSE: Normal external nose present EXTERNAL AUDITORY CANAL: EAC's normal Neck/C-Spine: COMMON NORMALS: no meningeal signs Chest: CHEST: Yes Symmetrical chest wall rise Resp: AUSCULTATION: diminished lung sounds on the right in the lower lung marie Cardio: COMMON NORMALS: regular rate, regular rhythm and No murmurs present (Cardio) RATE: regular rate RHYTHM: regular rhythm GI: COMMON NORMALS: Normal to inspection, nondistended, normoactive bowel sounds present, Soft to palpation and non-tender PALPATION: Yes Soft to palpation Extremity: COMMON NORMALS: no pedal edema Neuro: COMMON NORMALS: moves all extremities SENSORIUM/ORIENTATION: Yes alert MENINGEAL SIGNS: Yes no meningeal signs Psych: COMMON NORMALS: mental status grossly normal Skin: COMMON NORMALS: no wounds RASHES: no rashes Data : 08/10/21 03:42 08/08/21 05:02 Micro: Microbiology 08/08/21 13:53 Gram Stain - Final Pleural Fluid Anaerobic Culture - Preliminary Body Fluid Culture - Preliminary 08/07/21 08:25 Gram Stain - Final Sputum - Expectorated Sputum Sputum Culture - Final A&P Assessment and plan (1) Acute respiratory failure with hypoxia: Improvement in leukocytosis. Still requiring 2 L of oxygen. Wean off as tolerating. Continue empiric antibiotics for now for possible superimposed pneumonia. S/p thoracentesis 1 L, exudative effusion, bloody. Discussed with her. Continue to hold aspirin, hold off anticoagulation for now. SCD for DVT prophylaxis. She is still coughing, still requiring oxygen. Continue also empiric antibiotics at this time for possible superimposed pneumonia. Fluid prelim culture negative. Tells me her home is currently not prepared to receive her with oxygen. Her is making arrangements to clear out space for oxygen equipment, as well as away from sections of a caved in roof. CM providing information on additional resources. Status: Acute (2) Lung mass: Will need tissue sampling/biopsy on Wednesday with IR. Hold aspirin. Had CT chest. CT abdomen pelvis requested for today. Follow-up with pulmonology. Please get in touch with oncology. Status: Acute (3) Pleural effusion: Cytology requested. Cultures pending. Bloody, exudative effusion. Status: Acute (4) Pneumonia: Cefepime Follow blood and sputum cultures Status: Acute (5) COPD (chronic obstructive pulmonary disease): Oxygen and nebs prn Status: Acute Attestations Medical Necessity Statement*: Continue admission for further assessment management of possible superimposed pneumonia with hypoxia, initiation of d iagnostic assessment of metastatic cancer. Coding Level of Care Code Acute Real Estate Listing Consultant for Nadya Fwd Diagnoses Acute respiratory failure with hypoxia J96.01 Lung mass R91.8 Pleural effusion J90 Pneumonia J18.9 COPD (chronic obstructive pulmonary disease) J44.9
[2021-08-10 20:00] VITALS: BP 107/70; PULSE 91; PULSE 97; RESP 16; TEMP 36.9; O2SAT 94; O2SAT 95
[2021-08-10] MEDS: metoclopramide 5 mg/mL SDV 2 mL 10 MG IVP (23:50)
[2021-08-11] VITALS (7 sets, daily range): BP systolic 107–115; BP diastolic 63–76; PULSE 89–111; RESP 17–18; TEMP 36.4–36.6; O2SAT 86–94
[2021-08-11 04:50] LABS: Basophils # 0.1 10^3/uL (0.0-0.1); Basophils % 0.6 %; Eosinophils # 0.1 10^3/uL (0.0-0.8); Eosinophils % 0.8 %; Hematocrit 37.1 % (37.0-47.0); Hemoglobin 12.2 g/dL (11.5-15.3); Lymphocytes # 1.9 10^3/uL (0.8-4.8); Lymphocytes % 17.6 %; Mean Corpuscular HGB Conc 32.9 g/dL (30.0-36.0); Mean Corpuscular Hemoglobin 31.1 pg (28.0-34.0); Mean Corpuscular Volume 94.6 fl (81-99); Mean Platelet Volume 10.8 fL (7.4-10.4); Monocytes # 1.2 10^3/uL (0.2-0.9); Monocytes % 11.4 %; Neutrophils # 7.29 10^3/uL (1.8-7.7); Neutrophils % 68.8 %; Nucleated Red Blood Cells % 0 %; Platelet Count 355 10^3/cmm (130-400); Red Blood Count 3.92 10^6/uL (4.1-5.3); Red Cell Distribution Width 14.2 % (12.1-15.1); White Blood Count 10.6 10^3/uL (4.0-10.0)
[2021-08-11] MEDS: HYDROcodone-acetaminophen 5-325 mg Tablet 1 TAB PO ×2 (05:27→11:53)
[2021-08-11] MEDS: ondansetron 2 mg/ML SDV 2 mL 4 MG IVP (05:27)
[2021-08-11] MEDS: cefepime 1,000 MG in sodium chloride 0.9% (plus) 50 ML 100 MG IV (09:36)
[2021-08-11] MEDS: acetaZOLAMIDE 250 mg Tablet PO (09:36)
[2021-08-11] MEDS: famotidine 20 mg Tablet 40 MG PO (09:36)
[2021-08-11] MEDS: metoprolol tartrate 25 mg Tablet 37.5 MG PO (09:36)
--- NOTE | 2021-08-11 11:56 | PM.DCS ---
Discharge Providers Date of Admission: 08/07/21 18:37 Date of Discharge: August 11, 2021 Attending Provider at Admission: Bertha Abdi MD Attending Provider at Discharge: Shaheen Shook MD Primary Care Provider: Bethel Michaels Diagnoses at Discharge Discharge Diagnosis (1) Acute respiratory failure with hypoxia: Status: Acute (2) Lung mass: Status: Acute (3) Pleural effusion: Status: Acute (4) Pneumonia: Status: Acute (5) COPD (chronic obstructive pulmonary disease): Status: Acute Reason for Visit Reason for Visit: RESP DISTRESS Hospital Course Hospital Course This is a 61-year-old female with a past medical history of COPD, tobacco abuse, who presents to [facility] for shortness of breath Patient presented to [facility] for acute respiratory failure with hypoxia, secondary to pneumonia, received broad-spectrum antibiotic therapy, clinically improved, discharged on 5 remaining days of cefepime, with Advair, albuterol, oxygen therapy, Patient was found to have a lung mass CT of the chest -Infiltrative masslike soft tissue centered within the right lung base invading into the right hilum/mediastinum, early invasion of the right anterior chest wall, right pleura with large volume pleural effusion, and the pericardial fat. There is also masslike infiltration throughout the liver. These findings are compatible with malignancy/metastasis. CT of the abdomen pelvis -1. Too many to count lesions noted throughout the liver. Consistent with diffuse metastatic disease. 2. Renal cysts. 3. Right pleural and right diaphragmatic metastatic deposits as well as a large mass seen in the middle lobe extending to the mediastinum and heart. CT of the chest showed Patient was found to have a right pleural effusion, bloody, exudative effusion -I spoke to radiology, will schedule an outpatient biopsy within the week -Spoke to pulmonary, will have patient follow-up, for cytology, biopsy, consideration of bronchoscopy -Referred to oncology Patient was found to have a right sided pleural effusion, draining 1000 cc bloody, exudative, cytology sent culture so far negative History of COPD, advised to quit smoking Physical Exam Const: COMMON NORMALS: no acute distress and patient oriented x3 Resp: COMMON NORMALS: normal respiratory effort, No retractions, No use of accessory muscles and clear to auscultation bilaterally AUSCULTATION: clear to auscultation bilaterally Cardio: COMMON NORMALS: regular rate, regular rhythm, S1 normal heart sound present and S2 normal heart sound present RATE: regular rate RHYTHM: regular rhythm HEART SOUNDS: S1 normal heart sound present and S2 normal heart sound present GI: COMMON NORMALS: Normal to inspection, nondistended, normoactive bowel sounds present, Soft to palpation and non-tender PALPATION: Yes Soft to palpation Extremity: COMMON NORMALS: no pedal edema Neuro: COMMON NORMALS: patient oriented x3 Psych: COMMON NORMALS: mental status grossly normal Discharge Data Studies Completed and Pending Completed Studies During Hospitalization Category Date Time Status CT abdomen pelvis w con* [id number] Routine Cat Scan 08/10/21 13:[address] angio chest PE protcl [id number] Stat Cat Scan 08/07/21 16:31 Completed XR chest 1V portable [id number] Routine Exams 08/08/21 13:47 Completed XR chest 1V portable [id number] Stat Exams 08/07/21 16:14 Completed US thoracentesis [id number] Routine Ultrasound 08/08/21 13:30 Completed Pending at discharge Category Date Time Status Anaerobic Culture Routine Lab 08/08/21 13:53 Results Blood Culture Stat Lab 08/07/21 18:43 Results Body Fluid Culture & GS Routine Lab 08/08/21 13:53 Results Complete Blood Count w/Auto AM LABS Lab 08/12/21 04:00 Ordered Cytology [PTH] Routine Pth 08/08/21 10:19 Ordered Radiology Impressions Chest CTA 08/07/21 16:31 IMPRESSION: Infiltrative masslike soft tissue centered within the right lung base invading into the right hilum/mediastinum, early invasion of the right anterior chest wall, right pleura with large volume pleural effusion, and the pericardial fat. There is also masslike infiltration throughout the liver. These findings are compatible with malignancy/metastasis. Thoracentesis Ultrasound 08/08/21 13:30 IMPRESSION: 1. Uncomplicated ultrasound-guided RIGHT thoracentesis. Removal of 1000 cc bloody fluid 2. No pneumothorax on the post thoracentesis radiograph Chest X-Ray 08/08/21 13:47 IMPRESSION: Right lower lobe pleural effusion. No acute findings. Abdomen/Pelvis CT 08/10/21 13:41 IMPRESSION: 1. Too many to count lesions noted throughout the liver. Consistent with diffuse metastatic disease. 2. Renal cysts. 3. Right pleural and right diaphragmatic metastatic deposits as well as a large mass seen in the middle lobe extending to the mediastinum and heart. Laboratory Results WBC 10.6 10^3/uL (4.0-10.0) H 08/11/21 03:40 RBC 3.92 10^6/uL (4.1-5.3) L 08/11/21 03:40 Hgb 12.2 g/dL (11.5-15.3) 08/11/21 03:40 Hct 37.1 % (37.0-47.0) 08/11/21 03:40 MCV 94.6 fl (81-99) 08/11/21 03:40 MCH 31.1 pg (28.0-34.0) 08/11/21 03:40 MCHC 32.9 g/dL (30.0-36.0) 08/11/21 03:40 RDW 14.2 % (12.1-15.1) 08/11/21 03:40 Plt Count 355 10^3/cmm (130-400) 08/11/21 03:40 MPV 10.8 fL (7.4-10.4) H 08/11/21 03:40 Neut % (Auto) 68.8 % 08/11/21 03:40 Lymph % (Auto) 17.6 % 08/11/21 03:40 [place] % (Auto) 11.4 % 08/11/21 03:40 Eos % (Auto) 0.8 % 08/11/21 03:40 Baso % (Auto) 0.6 % 08/11/21 03:40 Neut # (Auto) 7.29 10^3/uL (1.8-7.7) 08/11/21 03:40 Lymph # (Auto) 1.9 10^3/uL (0.8-4.8) 08/11/21 03:40 [place] # (Auto) 1.2 10^3/uL (0.2-0.9) H 08/11/21 03:40 Eos # (Auto) 0.1 10^3/uL (0.0-0.8) 08/11/21 03:40 Baso # (Auto) 0.1 10^3/uL (0.0-0.1) 08/11/21 03:40 Nucleated RBC % (auto) 0 % 08/11/21 03:40 Nucleated RBCs # 0.0 /100WBC 08/11/21 03:40 Differential Comment Yes 08/08/21 13:53 Specimen Type Arterial 08/07/21 16:33 Sample Site Radial, left 08/07/21 16:33 ABG pH 7.49 (7.35-7.45) H 08/07/21 16:33 ABG pCO2 23.3 mmHg (35-45) L 08/07/21 16:33 ABG pO2 55.6 mmHg (80.0-100.0) L 08/07/21 16:33 ABG HCO3 17.9 mmol/L (22-26) L 08/07/21 16:33 ABG O2 Saturation 90.6 08/07/21 16:33 ABG Base Excess -3.5 mmol/L (-2.0-2.0) L 08/07/21 16:33 Jero Test Pos 08/07/21 16:33 A-a O2 Gradient 8.3 mmHg (5-10) 08/07/21 16:33 Hematocrit 42.3 % (37-47) 08/07/21 16:33 Hgb O2 Saturation 88.9 % (95-100) L 08/07/21 16:33 Carboxyhemoglobin 0.8 %THgb (0.4-20.1) 08/07/21 16:33 Methemoglobin 1.1 % (0.4-1.5) 08/07/21 16:33 Total Hemoglobin 13.8 g/dL (12-16) 08/07/21 16:33 Sodium 141.0 mmol/L (131-143) 08/07/21 16:33 Potassium 3.0 mmol/L (3.5-5.0) L 08/07/21 16:33 Glucose 144.0 mg/dL (70-115) H 08/07/21 16:33 Ionized Calcium 1.2 mmol/L (1.1-1.4) 08/07/21 16:33 O2 Delivery Device Room air 08/07/21 16:33 FiO2 21.0 % 08/07/21 16:33 Detail Drafter ID Cak 08/07/21 16:33 Sodium 140 mmol/L (136-145) 08/08/21 05:02 Potassium 3.6 mmol/L (3.5-5.1) 08/08/21 05:02 Chloride 102 mmol/L (98-107) 08/08/21 05:02 Carbon Dioxide 20 mmol/L (22-29) L 08/08/21 05:02 Anion Gap 21.6 (5-19) H 08/08/21 05:02 BUN 28 mg/dL (8-23) H 08/08/21 05:02 Creatinine 0.8 mg/dL (0.5-0.9) 08/08/21 05:02 GFR Calculation 72.4 mL/min (90-130) L 08/08/21 05:02 Glucose 137 mg/dL (65-115) H 08/08/21 05:02 Calculated Osmolality 298 mOsm/kg (285-295) H 08/08/21 05:02 Calcium 9.9 mg/dL (8.5-10.5) 08/08/21 05:02 Troponin T Baseline 18 ng/L (0-10) H 08/07/21 16:25 Troponin T 120 Minute 16.41 ng/L (0-10) H 08/07/21 18:25 Delta Troponin T -1.59 ABS# (0-10) L 08/07/21 18:25 Fluid Color Red 08/08/21 13:53 Fluid Appearance Bloody 08/08/21 13:53 Fluid pH 8.0 08/08/21 13:53 Fluid WBC 2396 /uL 08/08/21 13:53 Fluid RBC 360.000 10^3/uL 08/08/21 13:53 Fld Polynuclear WBCs # 0.136 08/08/21 13:53 Fld Polynuclear WBCs % 5.700 % 08/08/21 13:53 Fl Mononucl WBCs #(Auto) 2.260 08/08/21 13:53 Fl Mononuclear % Auto 94.300 % 08/08/21 13:53 Fluid LDH 611 U/L 08/08/21 13:53 Fluid Cholesterol 142 mg/dL (0-200) 08/08/21 13:53 Fluid Triglycerides 63 mg/dL (0-150) 08/08/21 13:53 Pleural Total Protein 4.4 g/dL 08/08/21 13:53 Vitals Last Vital Signs Temp 97.6 F 08/11/21 11:37 Pulse 89 08/11/21 11:37 Resp 18 08/11/21 11:37 BP 107/69 05/02/22 11:37 Pulse Ox 94 08/11/21 11:54 Discharge Plan Discharge Patient Disposition: Home Condition: Stable Prescriptions: New albuterol sulfate 90 mcg/actuation HFA aerosol inhaler 1 inh inhalation Q6H PRN (Reason: shortness of breath or wheezing) Qty: 8.5 0RF cefdinir 300 mg capsule 300 mg PO BID 5 Days Qty: 10 0RF fluticasone propion-salmeterol [Advair Diskus] 100-50 mcg/dose blister with device 1 inh inhalation BID Qty: 60 0RF Continued acetazolamide 250 mg tablet 250 mg PO DAILY 0RF famotidine 20 mg Tablet 40 mg PO BID 0RF metoprolol tartrate 75 mg tablet See Rx Instructions .ROUTE .COMPLEX 0RF Rx Instructions: take 1/2 tab AM and 1/2 tab PM Held Aspir-81 81 mg Tablet,Delayed Release (Dr/Ec) 81 mg PO DAILY 0RF Hold Instructions: Resume on 08/25/21. hold until biopsy Discharge Orders: Discharge Order (Routine); Ordered 08/11/21 Ordered By: Shaheen Shook Other Ambulatory Orders: biopsy [id number] (Routine) Timeframe: 1 Day Facility: [facility] - Location: Radiology Ordered By: Shaheen Shook Referrals: Tesha Carrera DO [Staff Physician] - 1-3 days (biopsy) Santosh Bourne MD [Physician] - 1-3 days Ole Albrecht MD [Hospitalist] - 1 week (infiltrative masslike soft tissue centered within the right lung base invading into the right hilum/mediastinum, early invasion of the right anterior chest wall, right pleura with large volume pleural effusion, and the pericardial fat. There is also masslike infiltration throughout the liver.) Discharge Diet: Cardiac Discharge Activity: Resume usual activity Patient Instructions: Opioid Safety Activity Restrictions/Additional Instructions: -Please follow-up with radiology for biopsy -Please follow-up with pulmonary -Please follow-up with oncology -Take antibiotics as prescribed, take inhalers as prescribed please hold -Aspirin until he had a biopsy Discharge Attestations Time Spent in Discharge Care*: less than 30 min Quality Metrics Clinical Quality Measures [ No reported AMI, CVA or VTE this stay] Coding Level of Care Code Acute Chg FW DC note Diagnoses Acute respiratory failure with hypoxia J96.01 Lung mass R91.8 Pleural effusion J90 Pneumonia J18.9 COPD (chronic obstructive pulmonary disease) J44.9
== END 2021-08-11 15:00 | disposition home or self-care (01) | DRG 193 ==
LOC: ER 18:38 → MEDSURG 18:58
PROVIDERS: Family Medicine; Internal Medicine; Admitting Provider Internal Medicine; Emergency Provider Emergency Medicine; PCP Family Medicine; Visit Provider Family Medicine
DX: J18.9 Pneumonia, unspecified organism (principal); J96.01 Acute respiratory failure with hypoxia; J44.0 Chronic obstructive pulmonary disease with (acute) lower respiratory infection; J90 Pleural effusion, not elsewhere classified; C78.7 Secondary malignant neoplasm of liver and intrahepatic bile duct; F17.210 Nicotine dependence, cigarettes, uncomplicated; R91.8 Other nonspecific abnormal finding of lung field
CPT/HCPCS: 12345; 32555; 36415; 36600; 71045; 71275; 74177; 80048; 80051; 80503; 82330; 82465; 82805; 83615; 83986; 84157; 84478; 84484; 85025; 87040; 87070; 87075; 87205; 88108; 88305; 89050; 93005; 94640; 94664; 96365; 96367; 96372; 96375; 99285; J0692; J1650; J2405; J2543; J2765; J3370; J7050; J7611; Q9967

== ENCOUNTER 2021-08-18 07:55 | Inpatient (IN) | payer MEDICAID, SELFPAY ==
[2021-08-18] VITALS (50 sets, daily range): BP systolic 85–126; BP diastolic 53–94; PULSE 119–143; RESP 10–38; TEMP 36.3–36.6; O2SAT 91–99; BMI 22.3
--- NOTE | 2021-08-18 08:19 | XR_ITS ---
WS: [id number] XR chest 1V portable [id number] REASON FOR EXAM: dyspnea/cough FINDINGS: Compared to the previous examination of 08/08/2021, there has been reaccumulation of right pleural flu id and progressive atelectasis of the right lung with mediastinal shift to the right. No significant interval change in the left lung. XR/XR chest 1V portable [id number] IMPRESSION: Progression of right hemithorax abnormality as above. Patient is shown to have extensive neoplastic involvement of right hemithorax o n CT scan of 08/10/2021.
--- NOTE | 2021-08-18 08:19 | ECG_ITS ---
[facility] Test Date: 2021-08-18 Pat Name: Yanci Desai Department: Room: ICU11 Gender: Female Elementary Principal: : 1960 Requested By: Tad Nance Order Number: [id number] Dion MD: Xiomy Mcarthur M.D. Measurements Intervals [place] Rate: 124 P: 65 RI: 113 QRS: 77 QRSD: 70 T: 72 QT: 317 QTc: 456 Interpretive Statements SINUS TACHYCARDIA WITH SHORT RI INTERVAL SEPTAL MYOCARDIAL INFARCTION , OF INDETERMINATE AGE [40+ ms Q WAVE IN V1/V2] Compared to ECG 08/18/2021 11:28:26 Short RI interval now present Myocardial infarct finding still present Electronically Signed On 08-18-2021 21:37:43 CDT by Xiomy Mcarthur M.D. [id number]
[2021-08-18] MEDS: ipratropium-albuterol 3 mL Neb INHALATION ×3 (08:23→20:15)
[2021-08-18 08:29] LABS: Basophils % 0.2 %; Hematocrit 39.5 % (37.0-47.0); Lymphocytes # 1.9 10^3/uL (0.8-4.8); Lymphocytes % 10.1 %; Mean Corpuscular HGB Conc 32.9 g/dL (30.0-36.0); Mean Corpuscular Hemoglobin 31.1 pg (28.0-34.0); Mean Corpuscular Volume 94.5 fl (81-99); Mean Platelet Volume 10.4 fL (7.4-10.4); Monocytes # 1.2 10^3/uL (0.2-0.9); Monocytes % 6.3 %; Neutrophils # 15.76 10^3/uL (1.8-7.7); Neutrophils % 82.5 %; Nucleated Red Blood Cells # 0.1 /100WBC; Nucleated Red Blood Cells % 0.3 %; Platelet Count 470 10^3/cmm (130-400); Red Blood Count 4.18 10^6/uL (4.1-5.3); Red Cell Distribution Width 14.6 % (12.1-15.1); White Blood Count 19.1 10^3/uL (4.0-10.0)
[2021-08-18] MEDS: sodium chloride 0.9% 500 ML 999 ML IV (08:32)
[2021-08-18 08:46] LABS: Add Urine Microscopic? NO; Charge for UA Resulting for Rev
[2021-08-18 08:47] LABS: ABG PCO2 23.9 mmHg (35-45); ABG PH Result 7.45 (7.35-7.45); Alveolar-Arterial Oxygen Gradi 20.5 mmHg (5-10); Arterial Blood Gas Hematocrit 42.4 % (37-47); Base Excess ABG -5.3 mmol/L (-2.0-2.0); Blood Gas Allen Test Pos; Blood Gas Operator Identificat ED; Blood Gas Sample Site Radial, right; Blood Gas Sample Type Arterial; Carboxyhemoglobin 0.6 %THgb (0.4-20.1); HCO3 ABG 16.7 mmol/L (22-26); HGB O2 Sat 91.6 % (95-100); Ionized Calcium Level - ABG 1.2 mmol/L (1.1-1.4); Methemoglobin 0.3 % (0.4-1.5); Oxygen Device NC; Oxygen Saturation ABG 92.5; PO2 ABG 65.4 mmHg (80.0-100.0); Potassium Level - ABG 4.1 mmol/L (3.5-5.0); Total Hemoglobin 13.8 g/dL (12-16)
--- NOTE | 2021-08-18 08:50 | ED_ITS ---
HPI - SOB/Dyspnea General: Chief Complaint: Shortness of Breath/Dyspnea Stated Complaint: SOB Time Seen by Provider: 08/18/21 08:12 Source: patient Mode of arrival: ambulatory Limitations: no limitations History of Present Illness: HPI Narrative: 61-year-old female with a known lung CA with hepatic metastasis. Patient was hospitalized recently with postobstructive pneumonia returns today with severe shortness of breath and productive cough. She has not had any hemoptysis. She has had a low-grade fever she has some chest discomfort particularly with inspiration. Patient is a former heavy smoker she had some 1 time smoked up to a pack a day she quit about a month ago.. MD elicited complaint: shortness of breath and cough Pertinent past history: COPD and other (Lung CA with mets) Onset (ago): day(s) Context: recent illness Timing: constant Severity: severe Exacerbating factors: exertion, coughing and inspiration Relieving factors: oxygen, rest, bronchodilators and upright position Known history of: COPD and other Associated symptoms: Reports chest congestion, chest pain, cough, fever(s) and nausea; Deny abdominal pain, diaphoresis, dizziness, extremity pain, hemoptysis, lighthe adedness, myalgias, orthopnea, palpitations, paresthesias, polydipsia, polyuria, rash, sense of impending doom, syncope or vomiting Treatment prior to arrival: oxygen Review of Systems Const: Reports: fever(s); Denies: diaphoresis ENMT: Denies: throat pain, ear or mastoid pain, nasal discharge or nasal congestion Card: Reports: chest pain; Denies: palpitations, lightheadedness, syncope or orthopnea Resp: Reports: dyspnea, productive cough, wheezing and chest congestion; Denies: non-productive cough or hemoptysis GI: Reports: nausea; Denies: abdominal pain, vomiting or hematemesis : Denies: flank pain, difficulty voiding, dysuria, urinary frequency or urinary urgency Musc: Denies: extremity pain Skin/Breast: Denies: rash or pruritus Neuro: Denies: headache(s), numbness in extremities, weakness in extremities or dizziness Endo: Denies: polyuria or polydipsia PFSH ED PFSH: Medical History COPD (chronic obstructive pulmonary disease) Lung mass Pneumonia Social History Smoking and tobacco status: current every day smoker cigarettes Packs smoked per day: 1 [ Other cigarette details: Former 1 to 2 packs/day] Alcohol intake: current Physical Exam Const: GENERAL APPEARANCE: cooperative ORIENTATION/CONSCIOUSNESS: Yes awake, Yes oriented to person, Yes oriented to place and Yes oriented to time HENMT: COMMON NORMALS: normocephalic, atraumatic and hearing grossly normal bilaterally HEAD & SCALP: normocephalic and atraumatic Neck/C-Spine: COMMON NORMALS: no JVD Resp: COMMON NORMALS: normal respiratory effort, No retractions and No use of accessory muscles AUSCULTATION: rales and wheezes Cardio: COMMON NORMALS: no JVD, regular rate, regular rhythm and No murmurs present (Cardio) RATE: regular rate RHYTHM: regular rhythm GI: COMMON NORMALS: Soft to palpation AUSCULTATION: Yes normoactive bowel sounds PALPATION: Yes Soft to palpation, No Tenderness to palpation present (GI), No Guarding due to palpation present (GI) and Yes Hepatomegaly present : COMMON NORMALS: Yes no CVA tenderness BLADDER/KIDNEY EXAM: Yes no CVA tenderness Back/Pelvis: COMMON NORMALS: no CVA tenderness Extremity: COMMON NORMALS: normal to inspection, capillary refill normal, no clubbing, cyanosis or edema, no calf tenderness and no pedal edema Neuro: SENSORIUM/ORIENTATION: Yes oriented to person, Yes oriented to place and Yes oriented to time Skin: COMMON NORMALS: no rashes or lesions noted GENERAL SKIN EXAM: no ra shes or lesions noted Course Vital Signs: Vital signs: Vital Signs Temperature 97.7 F 08/18/21 08:11 Pulse Rate 130 H 08/18/21 13:20 Respiratory Rate 25 H 08/18/21 13:20 Blood Pressure 106/72 08/18/21 13:20 Pulse Oximetry 94 08/18/21 13:20 MDM - SOB/Dyspnea Medical Decision Making Patient presents with known lung mass with hepatic metastasis. Previous thoracentesis did not show clear diagnosis of lung cancer although that is still what is expected. According to pathology not suspected small cell CA. Discussed Dr. Jones patient is hypoxic likely has a secondary pneumonia and the effusion is much worse will admit consult pulmonology for [place] drain start antibiotics. Medical Records I reviewed the patient's medical records. Lab Data I reviewed the patient's lab results. : 08/18/21 08:15 08/18/21 08:15 Labs/Radiology: Radiology Impressions Chest X-Ray 08/18/21 08:19 IMPRESSION: Progression of right hemithorax abnormality as above. Patient is shown to have extensive neoplastic involvement of right hemithorax on CT scan of 08/10/2021. Laboratory Results WBC 19.1 10^3/uL (4.0-10.0) H 08/18/21 08:15 RBC 4.18 10^6/uL (4.1-5.3) 08/18/21 08:15 Hgb 13.0 g/dL (11.5-15.3) 08/18/21 08:15 Hct 39.5 % (37.0-47.0) 08/18/21 08:15 MCV 94.5 fl (81-99) 08/18/21 08:15 MCH 31.1 pg (28.0-34.0) 08/18/21 08:15 MCHC 32.9 g/dL (30.0-36.0) 08/18/21 08:15 RDW 14.6 % (12.1-15.1) 08/18/21 08:15 Plt Count 470 10^3/cmm (130-400) H 08/18/21 08:15 MPV 10.4 fL (7.4-10.4) 08/18/21 08:15 Neut % (Auto) 82.5 % 08/18/21 08:15 Lymph % (Auto) 10.1 % 08/18/21 08:15 [place] % (Auto) 6.3 % 08/18/21 08:15 Eos % (Auto) 0.0 % 08/18/21 08:15 Baso % (Auto) 0.2 % 08/18/21 08:15 Neut # (Auto) 15.76 10^3/uL (1.8-7.7) H 08/18/21 08:15 Lymph # (Auto) 1.9 10^3/uL (0.8-4.8) 08/18/21 08:15 [place] # (Auto) 1.2 10^3/uL (0.2-0.9) H 08/18/21 08:15 Eos # (Auto) 0.0 10^3/uL (0.0-0.8) 08/18/21 08:15 Baso # (Auto) 0.0 10^3/uL (0.0-0.1) 08/18/21 08:15 Nucleated RBC % (auto) 0.3 % 08/18/21 08:15 Nucleated RBCs # 0.1 /100WBC 08/18/21 08:15 Specimen Type Arterial 08/18/21 08:38 Sample Site Radial, right 08/18/21 08:38 ABG pH 7.45 (7.35-7.45) 08/18/21 08:38 ABG pCO2 23.9 mmHg (35-45) L 08/18/21 08:38 ABG pO2 65.4 mmHg (80.0-100.0) L 08/18/21 08:38 ABG HCO3 16.7 mmol/L (22-26) L 08/18/21 08:38 ABG O2 Saturation 92.5 08/18/21 08:38 ABG Base Excess -5.3 mmol/L (-2.0-2.0) L 08/18/21 08:38 Jero Test Pos 08/18/21 08:38 A-a O2 Gradient 20.5 mmHg (5-10) H 08/18/21 08:38 Hematocrit 42.4 % (37-47) 08/18/21 08:38 Hgb O2 Saturation 91.6 % (95-100) L 08/18/21 08:38 Carboxyhemoglobin 0.6 %THgb (0.4-20.1) 08/18/21 08:38 Methemoglobin 0.3 % (0.4-1.5) L 08/18/21 08:38 Total Hemoglobin 13.8 g/dL (12-16) 08/18/21 08:38 Sodium 141.0 mmol/L (131-143) 08/18/21 08:38 Potassium 4.1 mmol/L (3.5-5.0) 08/18/21 08:38 Glucose 144.0 mg/dL (70-115) H 08/18/21 08:38 Ionized Calcium 1.2 mmol/L (1.1-1.4) 08/18/21 08:38 O2 Delivery Device Nc 08/18/21 08:38 O2 Liters/Min 4.0 % 08/18/21 08:38 FiO2 36.0 % 08/18/21 08:38 Casey Saw Operator ID Ed 08/18/21 08:38 Sodium 140 mmol/L (136-145) 08/18/21 08:15 Potassium 3.9 mmol/L (3.5-5.1) 08/18/21 08:15 Chloride 102 mmol/L (98-107) 08/18/21 08:15 Carbon Dioxide 17 mmol/L (22-29) L 08/18/21 08:15 Anion Gap 24.9 (5-19) H 08/18/21 08:15 BUN 42 mg/dL (8-23) H 08/18/21 08:15 Creatinine 1.1 mg/dL (0.5-0.9) H 08/18/21 08:15 GFR Calculation 50.2 mL/min (90-130) L 08/18/21 08:15 Glucose 131 mg/dL (65-115) H 08/18/21 08:15 Calculated Osmolality 302 mOsm/kg (285-295) H 08/18/21 08:15 Lactic Acid 3.5 mmol/L (0.5-2.2) H 08/18/21 08:40 Lactic Acid (Sepsis) 3.5 mmol/L (0.5-2.2) H 08/18/21 11:00 Calcium 10.1 mg/dL (8.5-10.5) 08/18/21 08:15 Total Bilirubin 0.9 mg/dL (0.15-1.2) 08/18/21 08:15 AST 234 U/L (0-32) H 08/18/21 08:15 ALT 175 U/L (0-33) H 08/18/21 08:15 Alkaline Phosphatase 964 IU/L (35-105) H 08/18/21 08:15 Creatine Kinase 43 U/L (26-192) 08/18/21 08:15 Troponin T Baseline 18 ng/L (0-10) H 08/18/21 08:15 Troponin T 120 Minute 18.54 ng/L (0-10) H 08/18/21 10:30 Delta Troponin T 0.54 ABS# (0-10) 08/18/21 10:30 Total Protein 6.8 g/dL (6.6-8.7) 08/18/21 08:15 Albumin 3.3 g/dL (3.5-5.2) L 08/18/21 08:15 Globulin 3.5 g/dL (1.3-4.6) 08/18/21 08:15 Urine Color Dark yellow (Yellow) 08/18/21 08:40 Urine Appearance Clear (CLEAR) 08/18/21 08:40 Urine pH 5 (5-7) 08/18/21 08:40 Ur Specific [place] 1.020 (1.005-1.030) 08/18/21 08:40 Urine Protein Neg (Negative) 08/18/21 08:40 Urine Glucose (UA) Norm (Normal) 08/18/21 08:40 Urine Ketones 1+ (Negative) H 08/18/21 08:40 Urine Blood Neg (Negative) 08/18/21 08:40 Urine Nitrate Negative (Negative) 08/18/21 08:40 Urine Bilirubin 1+ (Negative) H 08/18/21 08:40 Urine Urobilinogen 4 mg/dL (Negative) H 08/18/21 08:40 Ur Leukocyte Esterase Negative (Negative) 08/18/21 08:40 Discharge Plan Discharge Patient Disposition: Admitted As Inpatient Admit Provider: Inocente Jones Clinical Impression: Lung mass, Pleural effusion, Respiratory failure, Pneumonia, Acute exacerbation of chronic obstructive airways disease Condition: Stable Coding Level of Care Code ED Service Center Coordinator for Nadya Godfrey
[2021-08-18 08:51] LABS: Alanine Aminotransferase 175 U/L (0-33); Albumin Level 3.3 g/dL (3.5-5.2); Alkaline Phosphatase 964 IU/L (35-105); Anion Gap 24.9 (5-19); Aspartate Amino Transferase 234 U/L (0-32); Blood Urea Nitrogen 42 mg/dL (8-23); Calcium 10.1 mg/dL (8.5-10.5); Carbon Dioxide 17 mmol/L (22-29); Chloride 102 mmol/L (98-107); Creatine Phosphokinase 43 U/L (26-192); Globulin 3.5 g/dL (1.3-4.6); Glomerular Filtration Rate 50.2 mL/min (90-130); Glucose 131 mg/dL (65-115); Osmolality Calculated 302 mOsm/kg (285-295); Potassium 3.9 mmol/L (3.5-5.1); Sodium 140 mmol/L (136-145); Total Bilirubin 0.9 mg/dL (0.15-1.2); Total Protein 6.8 g/dL (6.6-8.7)
[2021-08-18 08:54] LABS: Troponin(5th) Baseline 18 ng/L (0-10)
[2021-08-18 09:00] LABS: Bilirubin Urine 1+ (Negative); Blood Urine Neg (Negative); Glucose Urine UA Norm (Normal); Ketones Urine 1+ (Negative); Leukocyte Esterase Urine Negative (Negative); Nitrate Urine Negative (Negative); Protein Urine Neg (Negative); Urine Appearance Clear (CLEAR); Urine Color Dark Yellow (Yellow); Urobilinogen Urine 4 mg/dL (Negative); pH Urine 5 (5-7)
[2021-08-18 09:03] LABS: Lactic Sepsis W/Reflex 3.5 mmol/L (0.5-2.2)
[2021-08-18] MEDS: vancomycin 1,000 MG in sodium chloride 0.9% 250 ML 250 MG IV (09:19)
[2021-08-18] MEDS: ketorolac 30 mg/mL INJ IVP (09:56)
--- NOTE | 2021-08-18 10:19 | ECG_ITS ---
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 Measurements Intervals [place] Rate: 133 P: 81 [place]: 142 QRS: 76 QRSD: 69 T: 59 QT: 306 QTc: 455 Interpretive Statements SINUS TACHYCARDIA SEPTAL MYOCARDIAL INFARCTION , OF INDETERMINATE AGE [40+ ms Q WAVE IN V1/V2] Compared to ECG 08/18/2021 08:08:39 Short [place] interval no longer present Myocardial infarct finding still present Electronically Signed On 08-18-2021 21:40:50 CDT by Xiomy Mcarthur M.D. [id number]
[2021-08-18 10:33] LABS: Reflex Lactate Order REFLEX LACTIC ORDERD
[2021-08-18 11:08] LABS: Troponin 5 2HR 18.54 ng/L (0-10)
[2021-08-18 11:12] LABS: Troponin 5 2HR Delta 0.54 ABS# (0-10)
--- NOTE | 2021-08-18 11:16 | PM.HP ---
Providers/Chief Complaint Primary Care Provider: Bethel Michaels Chief Complaint: SOB History of Present Illness Yanci Desai is a 61 year old female presenting to the emergency department with worsening shortness of breath. She was recently in the hospital with a new diagnosis of lung mass with pleural effusion and evidence of metastatic disease to her liver. She states that since discharge she is gradually got more short of breath. No fever. Does have a cough. Cough is productive of yellowish sputum. Last hospital stay she had a thoracentesis secondary to her pleural effusion with greater than 1 L removed. She states that helped her shortness of breath significantly. There was some suggestion of small cell cancer, but not definitive on analysis. She reports she has not been able to eat or drink adequately. After thoracentesis, and treatment with antibiotics she was discharged home on August 11. Review of Systems General: Reports: 10 or more systems reviewed and unremarkable except in HPI and below Const: Reports: fatigue; Denies: fever(s) or chills Eyes: Denies: change in vision ENMT: Denies: throat pain Card: Denies: chest pain Resp: Reports: dyspnea and productive cough GI: Denies: abdominal pain : Denies: flank pain Musc: Denies: neck pain Skin/Breast: Denies: rash Neuro: Denies: headache(s) Psych: Reports: anxiety; Denies: depression Endo: Denies: polyuria Lawson/Lymph: Denies: easy bruising All/Imm: Denies: urticaria Medications/Allergies Home Medications Medication Instructions Recorded Confirmed Last Taken Type acetazolamide 250 mg tablet 250 mg PO DAILY 08/07/21 08/07/21 08/07/21 History aspirin 81 mg tablet,delayed 81 mg PO DAILY 08/07/21 08/07/21 08/07/21 History release famotidine 20 mg tablet 40 mg PO BID 08/07/21 08/07/21 08/07/21 History metoprolol tartrate 75 mg tablet See Rx Instructions .ROUTE .COMPLEX 08/07/21 08/07/21 08/07/21 History albuterol sulfate 90 mcg/actuation 1 inh INHALATION Q6H PRN #8.5 g 08/11/21 Unknown Rx aerosol inhaler fluticasone 100 mcg-salmeterol 50 1 inh INHALATION BID #60 ea 08/11/21 Unknown Rx mcg/dose blistr powdr for inhalation (Advair Diskus) Allergies Allergy/AdvReac Type Severity Reaction Status Date / Time aspirin Allergy ADR-Nausea Verified 08/07/21 16:22 oxycodone [From OxyContin] Allergy ADR-Halluci Verified 08/07/21 16:21 nating trazodone Allergy ADR-Headach Verified 08/07/21 16:22 e PFSH Acute PFSH: Medical History (Updated 08/18/21 @ 11:25 by Inocente Jones MD) COPD (chronic obstructive pulmonary disease) Lung mass Pneumonia Social History Smoking and tobacco status: current every day smoker cigarettes Packs smoked per day: 1 [ Other cigarette details: Former 1 to 2 packs/day] Alcohol intake: current Other PFSH information: Supplemental PFSH Information: Family history reviewed. Not significant. Vitals/I&O/Wt Last Vital Signs Temp 97.7 F 08/18/21 08:11 Pulse 135 H 08/18/21 09:40 Resp 25 H 08/18/21 09:40 BP 126/85 08/18/21 09:40 Pulse Ox 94 08/18/21 09:40 Weight last 48 hrs Weight 58.967 kg Physical Exam Narrative: General exam is a white female, sitting in an upright position with tachypnea who appears moderately short of breath. On 4 L of oxygen she is 92%. HEENT: Pupils equally round. Oropharynx clear. Mucous membranes dry. Head is atraumatic and normocephalic Neck is supple no lymphadenopathy or thyromegaly Cardiovascular tachycardic, regular Lungs greatly diminished breath sounds, right lung. Left without wheezing. Relatively clear Abdomen is soft nontender positive bowel sounds, no obvious organomegaly but exam difficult in the upright position. exams deferred Extremities no cyanosis clubbing or edema, cap refill brisk Skin no rash Neuro no obvious focal deficits. Data : 08/18/21 08:15 08/18/21 08:15 Other Labs: ABG demonstrates a pH of 7.45, PCO2 of 24, PO2 of 65. LFTs elevated with an AST of 234, ALT 175, alk phos of 964, troponin 18 with repeat of 18.5. Urinalysis 1+ ketones 1+ bilirubin. Otherwise negative Chest x-ray demonstrates right pleural effusion, recurrent from last x-ray. Recent abdominal pelvic CT demonstrated numerous metastatic lesions throughout the liver, and recent CTA demonstrated invasive mass right lung base and invading chest wall, mediastinum, pericardial fat Micro: Microbiology 08/18/21 09:30 Blood Culture - Preliminary Blood SPECIMEN COLLECTED 08/18/21 09:10 Blood Culture - Preliminary Blood SPECIMEN COLLECTED A&P Assessment and plan (1) Respiratory failure: Patient with significant acute hypoxic respiratory failure. Currently requiring 4 L of oxygen. This is likely secondary to right pleural effusion and will improve after thoracentesis. Other etiologies could include pneumonia, COPD exacerbation. Status: Acute (2) Pleural effusion: Pulmonary consult. She would benefit from a Rothschild drain placement secondary to the quick recurrence of her pleural effusion from lung mass. Status: Acute (3) COPD (chronic obstructive pulmonary disease): Cannot rule out COPD exacerbation. DuoNeb every 4 hours, budesonide twice daily Prednisone 40 mg daily, 125 mg IV x1 was given in the emergency department. Status: Acute (4) Lung mass: May need biopsy for definitive diagnosis Has evidence of local invasion of pericardial fat, liver, chest wall Status: Acute (5) Pneumonia: vancomycin and Zosyn empirically Sputum culture, MRSA PCR Status: Acute Plan Multiple other medical problems as outlined in past medical history including tobacco dependency Full code currently SCDs for DVT prophylaxis. Consider initiation of Lovenox for DVT prophylaxis following Rothschild drain placement. Note that CTA was performed August 07 with no pulmonary embolism. I believe pulmonary embolism is not likely currently, and her shortness of breath is secondary to recurrence of pleural effusion. Attestations Medical Necessity Statement*: Will need greater than 2 midnight stay secondary to recurrent pleural effusion, possible pneumonia, COPD exacerbation. Critical Care Time: The high probability of a clinically significant, sudden or life threatening deterioration of the patient's [pulmonary, cardiac, hepatic system(s) required my full and direct attention, intervention and personal management. The critical care time is as shown. This time is in addition to time spent performing any reported procedures but includes the following: [x] Data and vital sign review and interpretation [x] Patient assessment, examination and intervention [x] Documentation [x] Medication orders and management Critical Care Time (min): 55 Coding Level of Care Code Acute Model Home Sales Greeter for [facility] Ep[facility]anio Diagnoses Respiratory failure J96.90 Pleural effusion J90 COPD (chronic obstructive pulmonary disease) J44.9 Lung mass R91.8 Pneumonia J18.9
[2021-08-18 11:33] LABS: Lactic Acid level (Lactate) 3.5 mmol/L (0.5-2.2)
[2021-08-18] MEDS: piperacillin-tazobactam 3.375 GM in dextrose 5% (plus) 50 ML IV (11:45)
--- NOTE | 2021-08-18 13:15 | PC.NURSE ---
Pt admitted to ICU from Emergency Dept. Pt very short of breath, tripoding in bed. O2 Sats ay 93%. O24lpm/NC.
[2021-08-18] MEDS: fentaNYL 50 mcg/mL INJ 2mL 25 MCG IVP (13:51)
--- NOTE | 2021-08-18 14:19 | ECG_ITS ---
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 Measurements Intervals Lindsay Rate: 138 P: 74 KS: 114 QRS: 74 QRSD: 68 T: 66 QT: 294 QTc: 447 Interpretive Statements SINUS TACHYCARDIA WITH SHORT KS INTERVAL ANTEROSEPTAL MYOCARDIAL INFARCTION , OF INDETERMINATE AGE [40+ ms Q WAVE IN V1-V4] Compared to ECG 08/07/2021 22:59:35 Sinus rhythm no longer present Myocardial infarct finding still present Electronically Signed On 08-18-2021 21:40:13 CDT by Xiomy Mcarthur M.D. [id number]
--- NOTE | 2021-08-18 14:27 | CTR_ITS ---
PROCEDURE INFORMATION: Exam: CT Chest Without Contrast; Diagnostic Exam date and time: 08/18/2021 6:14 PM Age: 61 years old Clinical indication: Dyspnea; Prior surgery; Surgery date: Post-operative (0-2 days); Surgery type: Post waldemar drain; Additional info: Follow up drain, dyspnea TECHNIQUE: Imaging protocol: Diagnostic computed tomography of the chest without contrast. Radiation optimization: All CT scans at this facility use at least one of these dose optimization techniques: automated exposure control; mA and/or kV adjustment per patient size (includes targeted exams where dose is matched to clinical indication); or iterative reconstruction. COMPARISON: CT angio chest PE protcl [id number] 08/07/2021 5:40 PM RADIATION DOSE METRICS: Total DLP (mGy-cm): 383.04 FINDINGS: Tubes, catheters and devices: Loculated small to moderate right pleural effusion with a drainage catheter seen in the inferior aspect. Lungs: Patchy right lung airspace opacities, some of which demonstrate a nodular component in the right middle lobe likely reflecting a combination of pneumonic infiltrate and malignancy which also involves the anterior mediastinum, with decreased airspace opacification in the right lower lobe suggestive of some resolving infiltrate this region. Emphysematous changes. Pleural spaces: Unremarkable. No pneumothorax. No pleural effusion. Heart: Unremarkable. No cardiomegaly. No pericardial effusion. Lymph nodes: Several stable enlarged mediastinal lymph nodes measuring up to 11.8 mm, nonspecific. Vasculature: Unremarkable. No aortic aneurysm. Liver: Diffuse metastatic disease throughout the liver suspected. Kidneys and ureters: Left kidney cysts, negative for follow-up. Bones/joints: Unremarkable. No acute fracture. Soft tissues: Unremarkable. CT/CT chest [facility] [id number] IMPRESSION: 1. Patchy right lung airspace opacities, some of which demonstrate a nodular component in the right middle lobe likely reflecting a combination of pneumonic infiltrate and malignancy which also involves the anterior mediastinum, with decreased airspace opacification in the right lower lobe suggestive of some resolving infiltrate this region. 2. Emphysematous changes. 3. Several stable enlarged mediastinal lymph nodes measuring up to 11.8 mm, nonspecific. 4. Diffuse metastatic disease throughout the liver suspected. 5. Left kidney cysts, negative for follow-up. 6. Loculated small to moderate right pleural effusion with a drainage catheter seen in the inferior aspect.
--- NOTE | 2021-08-18 14:29 | P.CONIM_ITS ---
Providers/Reason For Consult Consulting Physician/Specialty*: Santosh Bourne MD/ Pulmonary Critical Care Reason for Consult*: Recurrent large right pleural effusion with pleural masses and hepatic masses Requesting Physician: Inocente Jones MD Attending Physician: Inocente Jones MD Primary Care Provider: Bethel Michaels History of Present Illness History of Present Illness Yanci Desai is a 61 year old female with past medical history of COPD, lung mass, tobacco use presented to ED with worsening shortness of breath. Initial admission chest x-ray showed worsening recurrent large right pleural effusion. Recently patient was discharged after staying in the hospital from 08/08/2019 to 08/12/2019 for acute respiratory failure with hypoxia secondary to pneumonia and large right pleural effusion. 1000 cc bloody exudative fluid was drained by IR and patient will be discharged to pulmonary clinic to follow-up on cytology and CT chest 08/07/2021 infiltrative masslike soft tissue in the right lung base significant right hilum and continuation of right anterior chest wall as well as liver mets. She will discharge on 08/11/2021 to get IR guided biopsy of liver mets as outpatient. Today she had significant worsening right pleural effusion and currently requiring 4 L nasal cannula, moderate to severe respiratory distress and sitting in tripod position most of the time. Labs showed WBC 19 K. ABG on 4 L. 7. 45/23/63/16/90 3% saturation with a gradient 20. Elevated liver enzymes and lactic acid 3.2. Pulmonary consult requested for recurrent large right pleural effusion. Patient seen while in emergency room and again in ICU. Clearly appears dyspneic and trying to take tripod position most of the time Saturating 94% on 4 L nasal cannula -Reported smoking several packs per day for close to 50 years and quit smoking 1 month ago -Also complained of productive cough Medications/Allergies Home Medications Medication Instructions Recorded Confirmed Last Taken Type acetazolamide 250 mg tablet 250 mg PO DAILY 08/07/21 08/18/21 08/18/21 History metoprolol tartrate 75 mg tablet See Rx Instructions .ROUTE .COMPLEX 08/07/2108/18/21 History albuterol sulfate 90 mcg/actuation 1 inh INHALATION Q6H PRN #8.5 g 08/11/21 08/18/21 Unknown Rx aerosol inhaler fluticasone 100 mcg-salmeterol 50 1 inh INHALATION BID #60 ea 08/11/21 08/18/21 Unknown Rx mcg/dose blistr powdr for inhalation (Advair Diskus) Allergies Allergy/AdvReac Type Severity Reaction Status Date / Time aspirin Allergy ADR-Nausea Verified 08/07/21 16:22 oxycodone [From OxyContin] Allergy ADR-Halluci Verified 08/07/21 16:21 nating trazodone Allergy ADR-Headach Verified 08/07/21 16:22 e PFSH Acute PFSH: Medical History COPD (chronic obstructive pulmonary disease) Lung mass Pneumonia Social History Smoking and tobacco status: current every day smoker cigarettes Packs smoked per day: 1 [ Other cigarette details: Former 1 to 2 packs/day] Alcohol intake: current Vitals/I&O/Wt Last Vital Signs Temp 97.7 F 08/18/21 08:11 Pulse 130 H 08/18/21 13:20 Resp 25 H 08/18/21 13:20 BP 106/72 08/18/21 13:20 Pulse Ox 94 08/18/21 13:20 Weight last 48 hrs Weight 130 lb Physical Exam Narrative: General: alert, appears in moderate respiratory distress HEENT: conj clear, EOMI, PERRL, mmm, Neck: supple, no meningismus Heme: no cervical LAP Pulmonary: Reduced breath sounds on right lower lung zone Cardiovascular: rrr, nl s1s2, no mrg Abdomen: soft, nt, nd, no r/g, bs+ Extremities: pulses +, no edema, no c/c : no CVA tenderness Skin: intact, no rash MSK: no back or neck pain Neurologic: grossly intact Data : 08/18/21 08:15 08/18/21 08:15 Other Labs: Radiology Impressions Chest X-Ray 08/18/21 08:19 IMPRESSION: Progression of right hemithorax abnormality as above. Patient is shown to have extensive neoplastic involvement of right hemithorax on CT scan of 08/10/2021. Laboratory Results WBC 19.1 10^3/uL (4.0-10.0) H 08/18/21 08:15 RBC 4.18 10^6/uL (4.1-5.3) 08/18/21 08:15 Hgb 13.0 g/dL (11.5-15.3) 08/18/21 08:15 Hct 39.5 % (37.0-47.0) 08/18/21 08:15 MCV 94.5 fl (81-99) 08/18/21 08:15 MCH 31.1 pg (28.0-34.0) 08/18/21 08:15 MCHC 32.9 g/dL (30.0-36.0) 08/18/21 08:15 RDW 14.6 % (12.1-15.1) 08/18/21 08:15 Plt Count 470 10^3/cmm (130-400) H 08/18/21 08:15 MPV 10.4 fL (7.4-10.4) 08/18/21 08:15 Neut % (Auto) 82.5 % 08/18/21 08:15 Lymph % (Auto) 10.1 % 08/18/21 08:15 Sullivan % (Auto) 6.3 % 08/18/21 08:15 Eos % (Auto) 0.0 % 08/18/21 08:15 Baso % (Auto) 0.2 % 08/18/21 08:15 Neut # (Auto) 15.76 10^3/uL (1.8-7.7) H 08/18/21 08:15 Lymph # (Auto) 1.9 10^3/uL (0.8-4.8) 08/18/21 08:15 Sullivan # (Auto) 1.2 10^3/uL (0.2-0.9) H 08/18/21 08:15 Eos # (Auto) 0.0 10^3/uL (0.0-0.8) 08/18/21 08:15 Baso # (Auto) 0.0 10^3/uL (0.0-0.1) 08/18/21 08:15 Nucleated RBC % (auto) 0.3 % 08/18/21 08:15 Nucleated RBCs # 0.1 /100WBC 08/18/21 08:15 Specimen Type Arterial 08/18/21 08:38 Sample Site Radial, right 08/18/21 08:38 ABG pH 7.45 (7.35-7.45) 08/18/21 08:38 ABG pCO2 23.9 mmHg (35-45) L 08/18/21 08:38 ABG pO2 65.4 mmHg (80.0-100.0) L 08/18/21 08:38 ABG HCO3 16.7 mmol/L (22-26) L 08/18/21 08:38 ABG O2 Saturation 92.5 08/18/21 08:38 ABG Base Excess -5.3 mmol/L (-2.0-2.0) L 08/18/21 08:38 Jero Test Pos 08/18/21 08:38 A-a O2 Gradient 20.5 mmHg (5-10) H 08/18/21 08:38 Hematocrit 42.4 % (37-47) 08/18/21 08:38 Hgb O2 Saturation 91.6 % (95-100) L 08/18/21 08:38 Carboxyhemoglobin 0.6 %THgb (0.4-20.1) 08/18/21 08:38 Methemoglobin 0.3 % (0.4-1.5) L 08/18/21 08:38 Total Hemoglobin 13.8 g/dL (12-16) 08/18/21 08:38 Sodium 141.0 mmol/L (131-143) 08/18/21 08:38 Potassium 4.1 mmol/L (3.5-5.0) 08/18/21 08:38 Glucose 144.0 mg/dL (70-115) H 08/18/21 08:38 Ionized Calcium 1.2 mmol/L (1.1-1.4) 08/18/21 08:38 O2 Delivery Device Nc 08/18/21 08:38 O2 Liters/Min 4.0 % 08/18/21 08:38 FiO2 36.0 % 08/18/21 08:38 Telecommunication Tower Technician ID Ed 08/18/21 08:38 Sodium 140 mmol/L (136-145) 08/18/21 08:15 Potassium 3.9 mmol/L (3.5-5.1) 08/18/21 08:15 Chloride 102 mmol/L (98-107) 08/18/21 08:15 Carbon Dioxide 17 mmol/L (22-29) L 08/18/21 08:15 Anion Gap 24.9 (5-19) H 08/18/21 08:15 BUN 42 mg/dL (8-23) H 08/18/21 08:15 Creatinine 1.1 mg/dL (0.5-0.9) H 08/18/21 08:15 GFR Calculation 50.2 mL/min (90-130) L 08/18/21 08:15 Glucose 131 mg/dL (65-115) H 08/18/21 08:15 Calculated Osmolality 302 mOsm/kg (285-295) H 08/18/21 08:15 Lactic Acid 3.5 mmol/L (0.5-2.2) H 08/18/21 08:40 Lactic Acid (Sepsis) 3.5 mmol/L (0.5-2.2) H 08/18/21 11:00 Calcium 10.1 mg/dL (8.5-10.5) 08/18/21 08:15 Total Bilirubin 0.9 mg/dL (0.15-1.2) 08/18/21 08:15 AST 234 U/L (0-32) H 08/18/21 08:15 ALT 175 U/L (0-33) H 08/18/21 08:15 Alkaline Phosphatase 964 IU/L (35-105) H 08/18/21 08:15 Creatine Kinase 43 U/L (26-192) 08/18/21 08:15 Troponin T Baseline 18 ng/L (0-10) H 08/18/21 08:15 Troponin T 120 Minute 18.54 ng/L (0-10) H 08/18/21 10:30 Delta Troponin T 0.54 ABS# (0-10) 08/18/21 10:30 Total Protein 6.8 g/dL (6.6-8.7) 08/18/21 08:15 Albumin 3.3 g/dL (3.5-5.2) L 08/18/21 08:15 Globulin 3.5 g/dL (1.3-4.6) 08/18/21 08:15 Urine Color Dark yellow (Yellow) 08/18/21 08:40 Urine Appearance Clear (CLEAR) 08/18/21 08:40 Urine pH 5 (5-7) 08/18/21 08:40 Ur Specific [place] 1.020 (1.005-1.030) 08/18/21 08:40 Urine Protein Neg (Negative) 08/18/21 08:40 Urine Glucose (UA) Norm (Normal) 08/18/21 08:40 Urine Ketones 1+ (Negative) H 08/18/21 08:40 Urine Blood Neg (Negative) 08/18/21 08:40 Urine Nitrate Negative (Negative) 08/18/21 08:40 Urine Bilirubin 1+ (Negative) H 08/18/21 08:40 Urine Urobilinogen 4 mg/dL (Negative) H 08/18/21 08:40 Ur Leukocyte Esterase Negative (Negative) 08/18/21 08:40 Micro: Microbiology 08/18/21 09:30 Blood Culture - Preliminary Blood SPECIMEN COLLECTED 08/18/21 09:10 Blood Culture - Preliminary Blood SPECIMEN COLLECTED A&P Assessment and plan (1) Acute exacerbation of chronic obstructive airways disease: Status: Acute (2) Respiratory distress, acute: Status: Acute (3) Lung mass: Status: Acute (4) Recurrent pleural effusion on right: Status: Acute (5) COPD (chronic obstructive pulmonary disease): Status: Acute (6) Liver masses: Status: Acute Plan #Acute hypoxic respiratory distress in patient with recurrent large right pleural effusion #Acute exacerbation of COPD #Ct 08/07/2021 -possible right sided lung cancer mets to liver-need tissue diagnosis #Elevated LFTs likely secondary to hepatic mets -Patient had IR guided thoracentesis on 08/08/2021-1 L hemorrhagic fluid was drained-exudative in nature; cytology showed atypical cells with no definite malignancy -Based on the CT findings-with significant pleural masses-this fluid is recurrent and is likely malignant-I went ahead and placed a [place] drain and drained 2 L of fluid-sent for cell block, pleural fluid analysis -I will obtain a CT chest without contrast after draining-to visualize location of lung masses as well as conform the placement of pleural drain -While awaiting for pleural fluid cytology - will plan for IR guided liver biopsy while in the hospital -Acute on vancomycin and Zosyn for suspected hospital-acquired pneumonia causing this pleural effusion; pleural fluid cultures and fluid analysis is still pending -Continue scheduled nebulizations, p.o. prednisone for COPD exacerbation -Currently requiring 4 L nasal cannula-can taper down to keep saturations> 88% -AA [id number] likely PE and dyspnea can be explained by pleural effusion and COPD exacerbation -We will start on DVT prophylaxis IR guided liver biopsy tomorrow -We will teach patient and her how to drain it at home and will follow- up as outpatient for cytology and pathology results -We will assess next 24 hours to see if antibiotics can be switched to p.o. route Recommendations conveyed to Dr. Jones specialist taking care of the patient, RN and RT Consult Attestations Medical Necessity Statement: Acute hypoxic respiratory distress in patient with recurrent large right pleural effusion-inpatient with underlying metastatic malignancy-defer to hospitalist taking care of the patient Time Spent in Patient Care: Greater than 35 minutes (>than 50% of time sp ent in counselling and/or direct pt care on unit) . Critical Care Time: The high probability of a clinically significant, sudden or life threatening deterioration of the patient's [pulmonary system(s) required my full and direct attention, intervention and personal management. The critical care time is as shown. This time is in addition to time spent performing any reported procedures but includes the following: [x] Data and vital sign review and interpretation [x] Patient assessment, examination and intervention [x] Documentation [x] Medication orders and management Coding Level of Care Code New Pt Acute Supervisor Boarding for Chg Fwd Patient Type New History Comprehensive Exam Comprehensive Medical Decision Making High Complexity Diagnoses Acute exacerbation of chronic obstructive airways disease J44.1 Respiratory distress, acute R06.03 Lung mass R91.8 Recurrent pleural effusion on right J90 COPD (chronic obstructive pulmonary disease) J44.9 Liver masses R16.0 Time Spent (min) 60
--- NOTE | 2021-08-18 14:29 | PM.ACPR ---
Procedure/Consent Time out: Time Out Performed: Yes Procedure Narrative: DATE OF PROCEDURE: 08/18/2021: 1430 PREOPERATIVE DIAGNOSIS: Recurrent right pleural effusion. POSTOPERATIVE DIAGNOSIS: Recurrent right pleural effusion. PROCEDURE PERFORMED: Ultrasound-guided right PleurX catheter placement. SURGEON: Santosh Bourne MD ANESTHESIA: 20 cc 1% local lidocaine and fentanyl 25 MCG IV push prior to procedure INDICATION FOR PROCEDURE: Recurrent right pleural effusion. In an effort to palliate her respiratory symptoms, PleurX catheter placement was considered for home drainage. The patient and her family understood the risks and possible complications of the procedure and wished to proceed. DESCRIPTION OF PROCEDURE: The patient was brought to the ICU and placed supine on the operating table. Fentanyl 25 MCG IV push was administered without complications. The patient was then positioned with the head up and a roll under the right shoulder. Area of interest was localized using bedside ultrasound. The right chest and upper abdomen were prepped and draped in the usual sterile fashion. Lidocaine 1% was used to infiltrate two areas; one in the right upper quadrant where the tube would exit and the other in the area marked using ultrasound guidance along the anterior axillary line A small counterincision was made in the right upper quadrant area. Through the anterior axillary line area, the pleural space was accessed by Seldinger technique. The counterincision was made around the guidewire and then the PleurX catheter was tunneled from the right upper quadrant small incision to the one overlying the ribs. After appropriate dilation a sheath introducer was then passed over the wire and then the PleurX catheter was placed through the sheath introducer. There was good return of fluid. Two liters of hemorrhagic fluid was withdrawn slowly as the small counterincision was closed with Monocryl stitch. The catheter was capped off, and sterile dressings were applied. The patient tolerated the procedure well without any complications. The patient remained in ICU in stable condition. Sponge and needle count was correct at the end of the case. OPERATIVE FINDINGS: 2 liters of serous fluid was withdrawn before clamping the drainage tube. There were no overt bleeding complications. Estimated blood loss: 5 to 10 cc Immediate complications: None Patient will get postprocedure chest CT scan-I will follow-up Acute Procedures Epistaxis Control: Time out performed: Yes
--- NOTE | 2021-08-18 14:30 | PC.NURSE ---
Chest tube, PleurX, place on right lateral chest by Dr Bourne. 2100ml of serosangiouness fluid drained. Pt stated she did feel a little better.
[2021-08-18] MEDS: ondansetron 2 mg/ML SDV 2 mL 4 MG IVP ×2 (15:20→21:23)
[2021-08-18] MEDS: sodium chloride 0.9% 1,000 ML 75 ML IV (15:22)
[2021-08-18] MEDS: HYDROcodone-acetaminophen 5-325 mg Tablet 1 TAB PO ×2 (15:44→19:25)
[2021-08-18 15:55] LABS: INR 1.22 (0.8-1.2); Troponin 5 6HR 22.49 ng/L (0-10)
[2021-08-18 15:59] LABS: Troponin 5 6HR Delta 4.49 ng/L (0-12)
--- NOTE | 2021-08-18 16:49 | XRR_ITS ---
PROCEDURE INFORMATION: Exam: XR Chest Exam date and time: 08/18/2021 5:10 PM Age: 61 years old Clinical indication: Device placement; Other: Joseph drain; Additional info: Psot joseph drain placement TECHNIQUE: Imaging protocol: XR of the chest. Views: 1 view. COMPARISON: CR XR chest 1V portable [id number] 08/18/2021 8:35 AM FINDINGS: Lungs: Unremarkable. No consolidation. Pleural spaces: Decreased volume right pleural effusion. No pneumothorax. Heart/Mediastinum: Unremarkable. No cardiomegaly. Bones/joints: Unremarkable. There is a apparent drain is in place on the right side extending from the right upper lobe toward the right lower lobe . XR/XR chest 1V portable [id number] IMPRESSION: 1. Right lower lobe pleural effusion shows decreased volume since prior examination. 2. A drain is in place on the right side 3. Otherwise negative examination
[2021-08-18] MEDS: piperacillin-tazobactam 3.375 GM in sodium chloride 0.9% (plus) 50 ML IV (18:36)
--- NOTE | 2021-08-18 19:39 | PC.NURSE ---
Shift Note: Shortness of breath has greatly decreased per pt since drain insertion and 2100ml removed. Fluid sent to lab for analysis. Pt was able to transfer to / with minimal shortness of breath for CT. She has not urinated since arriving to ICU. IV fluids started and Zosyn hung. Pt has complained of back pain, hyrdocodone administer once. Bedside report completed with DARCI Mcgarry Frequent safety and comfort rounds continue. Orders and/or nursing care completed as indicated. Patient monitored for response to intervention and treatment(s). Education provided includes Chest tube, drainage, Zosyn and plan of care. Patient and/or sales promotion representative verbalized understanding of plan of care, medications and progress.. Will continue to monitor.
[2021-08-18] MEDS: budesonide 0.5 mg/2 mL Neb INHALATION (20:15)
[2021-08-18] MEDS: morphine 4 mg/mL SDV 1 mL IVP (21:14)
--- NOTE | 2021-08-18 21:50 | PC.NURSE ---
Drain clamped. 2 incisions. One above drain insertion is not sutured, and has serosanguineous drainage.
--- NOTE | 2021-08-18 22:59 | PC.NURSE ---
Pt resting quietly after receiving morphine and zofran. Respirations are even and unlabored. Eyes are closed. Pt remains in sinus tachycardia at 120 beats per minute.
[2021-08-19] VITALS (51 sets, daily range): BP systolic 96–129; BP diastolic 58–95; PULSE 100–124; RESP 8–20; TEMP 36.3–36.9; O2SAT 88–94
[2021-08-19] MEDS: HYDROcodone-acetaminophen 5-325 mg Tablet 1 TAB PO ×4 (00:16→20:24)
--- NOTE | 2021-08-19 01:23 | PC.NURSE ---
Pt extremely soa with activity, but saturation did not drop below 90%. Pt recovered within 5 minutes of rest.
[2021-08-19] MEDS: piperacillin-tazobactam 3.375 GM in sodium chloride 0.9% (plus) 50 ML IV (01:50)
[2021-08-19] MEDS: ipratropium-albuterol 3 mL Neb INHALATION ×4 (03:13→20:33)
[2021-08-19] MEDS: morphine 4 mg/mL SDV 1 mL IVP ×3 (03:54→23:49)
[2021-08-19] MEDS: ondansetron 2 mg/ML SDV 2 mL 4 MG IVP ×3 (04:03→23:53)
--- NOTE | 2021-08-19 04:15 | PC.NURSE ---
Pt called this nurse into room to report pain. Pt wheezing initially. Pt repositioned. Morphine and zofran administered. Wheezing subsided.
[2021-08-19 04:40] LABS: Basophils % 0.2 %; Hematocrit 35.7 % (37.0-47.0); Hemoglobin 11.1 g/dL (11.5-15.3); Lymphocytes # 1.2 10^3/uL (0.8-4.8); Lymphocytes % 5.4 %; Mean Corpuscular HGB Conc 31.1 g/dL (30.0-36.0); Mean Corpuscular Hemoglobin 31.4 pg (28.0-34.0); Mean Corpuscular Volume 101.1 fl (81-99); Mean Platelet Volume 10.3 fL (7.4-10.4); Monocytes % 4.6 %; Neutrophils # 20.28 10^3/uL (1.8-7.7); Neutrophils % 88.7 %; Nucleated Red Blood Cells % 0.2 %; Platelet Count 354 10^3/cmm (130-400); Red Blood Count 3.53 10^6/uL (4.1-5.3); Red Cell Distribution Width 14.9 % (12.1-15.1); White Blood Count 22.8 10^3/uL (4.0-10.0)
[2021-08-19 05:08] LABS: Alanine Aminotransferase 199 U/L (0-33); Albumin Level 2.6 g/dL (3.5-5.2); Alkaline Phosphatase 852 IU/L (35-105); Anion Gap 21.9 (5-19); Aspartate Amino Transferase 353 U/L (0-32); Blood Urea Nitrogen 57 mg/dL (8-23); Calcium 9.4 mg/dL (8.5-10.5); Carbon Dioxide 16 mmol/L (22-29); Chloride 104 mmol/L (98-107); Globulin 3.8 g/dL (1.3-4.6); Glomerular Filtration Rate 32.6 mL/min (90-130); Glucose 135 mg/dL (65-115); Magnesium 2.6 mg/dL (1.7-2.3); Osmolality Calculated 304 mOsm/kg (285-295); Potassium 3.9 mmol/L (3.5-5.1); Sodium 138 mmol/L (136-145); Total Bilirubin 1.3 mg/dL (0.15-1.2); Total Protein 6.4 g/dL (6.6-8.7)
[2021-08-19] MEDS: vancomycin 1,000 MG in sodium chloride 0.9% 250 ML 250 MG IV (05:19)
[2021-08-19] MEDS: sodium chloride 0.9% 1,000 ML 75 ML IV ×2 (05:23→23:06)
--- NOTE | 2021-08-19 05:55 | PC.NURSE ---
Dressing change performed on [place] Drain. Central line dressing kit used.
[2021-08-19] MEDS: pantoprazole DR 40 mg Tablet PO (07:38)
[2021-08-19] MEDS: sodium chloride 0.9% 500 ML 999 ML IV (07:39)
[2021-08-19] MEDS: metoprolol tartrate 25 mg Tablet PO ×2 (07:39→21:39)
[2021-08-19] MEDS: predniSONE 20 mg Tablet 40 MG PO (07:39)
--- NOTE | 2021-08-19 07:44 | USCV_ITS ---
Yanci Desai Age: 61 Gender: F : 1960 Exam Date: 08/19/2021 09:34 Ordering Phys: Inocente Jones MD Technologist: TALISHA Exam Location: [facility] – [place] Indication: ARRHYTHMIA BP: 124 / 95 HR: 106 Rhythm: Sinus Technical Quality: Poor secondary to COPD MEASUREMENTS (Male / Female) Normal Values 2D ECHO LV Diastolic Diameter PLAX 2.8 cm 4.2 - 5.9 / 3.9 - 5.3 cm LV Systolic Diameter PLAX 1.8 cm IVS Diastolic Thickness 1.2 cm 0.6 - 1.0 / 0.6 - 0.9 cm IVS Systolic Thickness 1.5 cm LVPW Diastolic Thickness 1.0 cm 0.6 - 1.0 / 0.6 - 0.9 cm LVPW Systolic Thickness 1.1 cm LVOT Diameter 2.0 cm LV Ejection Fraction 2D Teich 68.1 % LV Ejection Fraction MOD 2C 61.4 % LV Ejection Fraction 2C AL 63.0 % LA Diameter 2.2 cm LA Width 2.5 cm LA Height 3.6 cm RA Width 2.5 cm RA Height 2.7 cm Aorta at Sinotubular Diameter 1.6 cm IVC Diameter 1.2 cm M-MODE Aortic Annulus Diameter 2.2 cm LA Ao Ratio MM 1.0 MV E Point Septal Separation 0.4 cm DOPPLER AV Peak Velocity 115.0 cm/s LVOT Peak Velocity 87.0 cm/s AV Area Cont Eq vti 2.3 cm squared AV Area Cont Eq pk 2.3 cm squared MV Peak Velocity 104.0 cm/s MV Area PHT 4.5 cm squared Mitral E to A Ratio 0.8 MV E' Velocity 46.0 cm/s Mitral E to MV E' Ratio 8.4 Mitral E to LV E' Lateral Ratio 6.8 Mitral E to LV E' Septal Ratio 11.1 TR Peak Velocity 257.0 cm/s TR Peak Gradient 26.4 mmHg TV Peak E Velocity 54.0 cm/s Right Atrial Pressure 3.0 mmHg Pulmonary Artery Systolic Pressu 29.4 mmHg PV Peak Velocity 105.0 cm/s RV Acceleration Time 0.1 s RV Ejection Time 0.3 s RV AcT/ET 0.4 FINDINGS Left Ventricle Normal left ventricular cavity size. Normal left ventricular systolic function. Left ventricular ejection fraction is estimated at 70 %. No regional wall motion abnormalities. Normal diastolic function. Right Ventricle Normal right ventricular size and systolic function. Right ventricular systolic pressure 30 mmHg. Right Atrium Normal right atrial size. Right atrial pressure estimated at 3 mmHg. Left Atrium Normal left atrial size. Mitral Valve Mildly thickened mitral valve. No mitral valve stenosis. No mitral valve regurgitation. Aortic Valve Aortic valve not well visualized. No aortic valve stenosis. Tricuspid Valve Structurally normal tricuspid valve. Mild tricuspid valve regurgitation. Pulmonic Valve Pulmonic valve not well visualized. Pericardium Trivial pericardial effusion. Prominent epicardial fat. Aorta Normal size aortic root and proximal ascending aorta. Normal- sized inferior vena cava. CONCLUSIONS 1. Normal left ventricular cavity size and systolic function. Left ventricular ejection fraction is estimated at 70 %. No regional wall motion abnormalities. Normal diastolic function. 2. Normal right ventricular size and systolic function. 3. Pulmonary artery pressure estimated at 30 mmHg. 4. Mild tricuspid valve regurgitation. 5. Trivial pericardial effusion. Prominent epicardial fat. 6. No prior similar studies to compare. Christi Bolton MD (Electronically Signed) Final Date: 19 Aug 2021 19:16 S
[2021-08-19] MEDS: budesonide 0.5 mg/2 mL Neb INHALATION ×2 (08:01→20:33)
[2021-08-19 08:46] LABS: Body Fluid Polynuclear #Cells 0.041; Body Fluid WBC 928 /uL; Monocytes # Body Fluid 0.887
[2021-08-19 09:06] LABS: Hematocrit Body Fluid 2.6 %
[2021-08-19 09:11] LABS: Apprearance, Body Fluid BLOODY; Color, Body Fluid RED; PATH Referral YES
--- NOTE | 2021-08-19 09:25 | P.ANESASSM_ITS ---
Pre-Anesthetic Assessment Height/Weight: Height 1.63 m Weight 56.382 kg Temp Pulse Resp BP Pulse Ox 98.4 F 116 H 16 123/87 93 08/19/21 03:50 08/19/21 07:55 08/19/21 07:55 08/19/21 06:00 08/19/21 07:55 Preop Diagnosis: liver mass Familial anesthetic complications: none Was Beta Carlos taken within 24 hours: Yes Was Clonidine taken within 24 hours: N/A Social Tobacco Exam alert, oriented x 3, clear to auscultation bilaterally and regular rate & rhythm Airway Submandibular: within normal limits Cervical ROM: within normal limits Mallampati: Class II Dentition: false Pulmonary Chronic Obstructive Pulmonary Disease Pleural effusions Respiratory failure PCN Lung mass CXR improved effusion post drain CV/HEM Macrocytic anemia EKG 08/18/21 ?Interpretive Statements SINUS TACHYCARDIA WITH SHORT AK INTERVAL ANTEROSEPTAL MYOCARDIAL INFARCTION , OF INDETERMINATE AGE [40+ ms Q WAVE IN V1-V4] Compared to ECG 08/07/2021 22:59:35 Sinus rhythm no longer present Myocardial infarct finding still present Electronically Signed On 08-18-2021 21:40:13 CDT by Xiomy Mcarthur M.D. [email or web address] Acute vs Acute on chronic renal disease Hypomagnesia Hepatic Liver mass with elevated AST, ALT, alk phos with hypoalbuminemia GI None reported Metabolic None reported Musc/skel None reported Neuropsych None reported Anesthetic Plan ASA status: 3 (61 year old female with respiratory failure, COPD, lung mass, liver mass, and pleural effusion. ) Anesthesia: Anesthesia Evaluation and MAC Other: I discussed with the patient risks, goals, and benefits of MAC and general anesthesia. We discussed spectrum of MAC anesthesia including conversion to general as well as possibility of recall of intraoperative stimuli including discomfort/pain. Patient agrees to proceed with MAC. Risk of > 500 ml blood loss (7ml/kg in children): No Medications/Allergies Home Medications Medication Instructions Recorded Confirmed Last Taken Type acetazolamide 250 mg tablet 250 mg PO DAILY 08/07/21 08/18/21 08/18/21 History metoprolol tartrate 75 mg tablet See Rx Instructions .ROUTE .COMPLEX 08/07/21 08/18/21 08/18/21 History albuterol sulfate 90 mcg/actuation 1 inh INHALATION Q6H PRN #8.5 g 08/11/21 08/18/21 Unknown Rx aerosol inhaler fluticasone 100 mcg-salmeterol 50 1 inh INHALATION BID #60 ea 08/11/21 08/18/21 Unknown Rx mcg/dose blistr powdr for inhalation (Advair Diskus) Allergies Allergy/AdvReac Type Severity Reaction Status Date / Time aspirin Allergy ADR-Nausea Verified 08/07/21 16:22 oxycodone [From OxyContin] Allergy ADR-Halluci Verified 08/07/21 16:21 nating trazodone Allergy ADR-Headach Verified 08/07/21 16:22 e Current Medications Generic Name Dose Route Start Last Admin Trade Name Freq PRN Reason Stop Dose Admin Hydrocodone Bitart/Acetaminophen 1 tab 08/18/21 13:27 08/19/21 05:22 Hydrocodone-Acetaminophen 5-325 Mg Tablet PO 1 tab Q4H PRN Administration MODERATE PAIN Albuterol/Ipratropium 3 ml 08/18/21 13:27 08/19/21 07:58 Ipratropium-Albuterol 3 Ml Neb INHALATION 3 ml Q6H ELODIA Administration Budesonide 0.5 mg 08/18/21 18:00 08/19/21 08:01 Budesonide 0.5 Mg/2 Ml Neb INHALATION 0.5 mg BID ELODIA Administration Sodium Chloride 1,000 mls @ 100 mls/hr 08/18/21 13:27 08/19/21 05:23 Sodium Chloride 0.9% IV 75 mls/hr .Q10H ELODIA Administration Vancomycin HCl 1,000 mg/ 250 mls @ 250 mls/hr 08/19/21 05:00 08/19/21 06:37 Sodium Chloride IV Infused Q24H ELODIA Infusion Protocol Piperacillin Sod/Tazobactam 50 mls @ 12.5 mls/hr 08/18/21 18:00 08/19/21 06:37 Sod 3.375 gm/ Sodium Chloride IV Infused Q8H ELODIA Infusion Protocol Metoprolol Tartrate 25 mg 08/19/21 09:00 08/19/21 07:39 Metoprolol Tartrate 25 Mg Tablet PO 25 mg BID@0900,2100 ELODIA Administration Morphine Sulfate 4 mg 05/09/22 13:27 08/19/21 03:54 Morphine 4 Mg/Ml Sdv 1 Ml IVP 4 mg Q4H PRN Administration SEVERE PAIN Ondansetron HCl 4 mg 08/18/21 13:27 08/19/21 04:03 Ondansetron 2 Mg/Ml Sdv 2 Ml IVP 4 mg Q6H PRN Administration NAUSEA AND VOMITING Pantoprazole Sodium 40 mg 08/19/21 09:00 08/19/21 07:[address] 40 Mg Tablet PO 40 mg DAILY ELODIA Administration Prednisone 40 mg 08/19/21 09:00 08/19/21 07:39 Prednisone 20 Mg Tablet PO 40 mg DAILY ELODIA Administration [facility] Anesthesia Medical History COPD (chronic obstructive pulmonary disease) Lung mass Pneumonia Social History Smoking and tobacco status: current every day smoker cigarettes Packs smoked per day: 1 [ Other cigarette details: Former 1 to 2 packs/day] Alcohol intake: current Supplemental [facility] Information Family history reviewed. Not significant. Data Anesthesia : 08/19/21 04:03 08/19/21 04:03 Short CBC 08/18/21 08/19/21 Range/Units 08:15 04:03 WBC 19.1 H 22.8 H (4.0-10.0) 10^3/uL Hgb 13.0 11.1 L (11.5-15.3) g/dL Hct 39.5 35.7 L (37.0-47.0) % MCV 94.5 101.1 H D (81-99) fl Plt Count 470 H 354 (130-400) 10^3/cmm Neut % (Auto) 82.5 88.7 % Neut # (Auto) 15.76 H 20.28 H (1.8-7.7) 10^3/uL BMP 08/18/21 08/19/21 08:15 04:03 Sodium 140 138 Potassium 3.9 3.9 Chloride 102 104 Carbon Dioxide 17 L 16 L BUN 42 H 57 H Creatinine 1.1 H 1.6 H Glucose 131 H 135 H Calcium 10.1 9.4 Cardiac Enzymes 0508/18/21 08/18/21 Range/Units 08:15 08:15 10:30 Creatine Kinase 43 (26-192) U/L Troponin T Baseline 18 H (0-10) ng/L Troponin T 120 Minute 18.54 H (0-10) ng/L Delta Troponin T 0.54 (0-10) ABS# Troponin T Hi Sens 6Hr (0-10) ng/L Troponin T Hi Sens 6Hr Delta (0-12) ng/L 08/18/21 Range/Units 15:15 Creatine Kinase (26-192) U/L Troponin T Baseline (0-10) ng/L Troponin T 120 Minute (0-10) ng/L Delta Troponin T (0-10) ABS# Troponin T Hi Sens 6Hr 22.49 H (0-10) ng/L Troponin T Hi Sens 6Hr Delta 4.49 (0-12) ng/L Liver Function 08/18/21 08/19/21 Range/Units 08:15 04:03 Total Bilirubin 0.9 1.3 H (0.15-1.2) mg/dL AST 234 H 353 H (0-32) U/L ALT 175 H 199 H (0-33) U/L Alkaline Phosphatase 964 H 852 H (35-105) IU/L Albumin 3.3 L 2.6 L (3.5-5.2) g/dL Urine 08/18/21 Range/Units 08:40 Urine Color Dark yellow (Yellow) Urine Appearance Clear (CLEAR) Urine pH 5 (5-7) Ur Specific [place] 1.020 (1.005-1.030) Urine Protein Neg (Negative) Urine Glucose (UA) Norm (Normal) Urine Ketones 1+ H (Negative) Urine Nitrate Negative (Negative) Urine Bilirubin 1+ H (Negative) Ur Leukocyte Esterase Negative (Negative) Coags 08/18/21 15:15 PT 15.70 H INR 1.22 H ABG 08/18/21 08:38 Specimen Type Arterial Sample Site Radial, right ABG pH 7.45 ABG pCO2 23.9 L ABG pO2 65.4 L ABG HCO3 16.7 L ABG O2 Saturation 92.5 ABG Base Excess -5.3 L A-a O2 Gradient 20.5 H O2 Delivery Device Nc O2 Liters/Min 4.0 FiO2 36.0 Microbiology 08/18/21 09:30 Blood Culture - Preliminary Blood SPECIMEN COLLECTED 08/18/21 09:10 Blood Culture - Preliminary Blood SPECIMEN COLLECTED Cardiac Studies: No Data to Display
[2021-08-19 09:58] LABS: Albumin Body Fluid 2.3 g/dL; Creatinine Body Fluid 1.13 (0.5-0.9); LDH Pleural Fluid 806 U/L; Total Protein Pleural Fluid 3.8 g/dL; Triglycerides, Pleural Fluid 65 mg/dL
--- NOTE | 2021-08-19 10:19 | P.PN_ITS ---
Subjective Subjective: -Seen patient at bedside -Saturating 96% on 4 L nasal cannula; -Reported her breathing has improved since placing Sarpy drain-removed 2.1 L fluid-fluid analysis showed lymphocytic predominant exudative pleural effusion -Cytology pending; review of cytology from previous thoracentesis on 08/07/2021- showed atypical cells suspicious for small cell cancer but need additional samples for definitive diagnosis -Also patient underwent IR guided liver biopsy as well and sample sent for pathology -There was some oozing noted around the Sarpy drain insertion site-I placed 2 sutures around the Sarpy drain insertion site and oozing stopped -We will obtain a chest x-ray and then educate patient and how to drain using Sarpy drain at home -Other labs and imaging reviewed-Noted leukocytosis and MARTINA with acceptable electrolytes; deranged LFTs possibly secondary to liver mets Medications: Reviewed: Yes Vitals/I&O/Wt Last Vital Signs Temp 98.4 F 08/19/21 03:50 Pulse 111 H 08/19/21 09:30 Resp 12 08/19/21 09:30 BP 124/95 08/19/21 09:30 Pulse Ox 89 L 08/19/21 09:30 08/18/21 08/19/21 08/19/21 22:59 06:59 14:59 Intake Total 1690 / 1690 2190 / 3880 Output Total 2100 / 2100 200 / 2300 125 / 125 Balance -410 / -410 1990 / 1580 -125 / -125 Weight last 48 hrs Weight 124 lb 4.8 oz Weight 130 lb Physical Exam Narrative: General: alert, appears in moderate respiratory distress HEENT: conj clear, EOMI, PERRL, mmm, Neck: supple, no meningismus Heme: no cervical LAP Pulmonary: Reduced breath sounds on right lower lung zone Cardiovascular: rrr, nl s1s2, no mrg Abdomen: soft, nt, nd, no r/g, bs+ Extremities: pulses +, no edema, no c/c : no CVA tenderness Skin: intact, no rash MSK: no back or neck pain Neurologic: grossly intact Data : 08/19/21 04:03 08/19/21 04:03 Other Labs: Radiology Impressions Chest CT 08/18/21 14:27 IMPRESSION: 1. Patchy right lung airspace opacities, some of which demonstrate a nodular component in the right middle lobe likely reflecting a combination of pneumonic infiltrate and malignancy which also involves the anterior mediastinum, with decreased airspace opacification in the right lower lobe suggestive of some resolving infiltrate this region. 2. Emphysematous changes. 3. Several stable enlarged mediastinal lymph nodes measuring up to 11.8 mm, nonspecific. 4. Diffuse metastatic disease throughout the liver suspected. 5. Left kidney cysts, negative for follow-up. 6. Loculated small to moderate right pleural effusion with a drainage catheter seen in the inferior aspect. Chest X-Ray 08/18/21 16:49 IMPRESSION: 1. Right lower lobe pleural effusion shows decreased volume since prior examination. 2. A drain is in place on the right side 3. Otherwise negative examination Laboratory Results WBC 22.8 10^3/uL (4.0-10.0) H 08/19/21 04:03 RBC 3.53 10^6/uL (4.1-5.3) L 08/19/21 04:03 Hgb 11.1 g/dL (11.5-15.3) L 08/19/21 04:03 Hct 35.7 % (37.0-47.0) L 08/19/21 04:03 MCV 101.1 fl (81-99) H D 08/19/21 04:03 MCH 31.4 pg (28.0-34.0) 08/19/21 04:03 MCHC 31.1 g/dL (30.0-36.0) D 08/19/21 04:03 RDW 14.9 % (12.1-15.1) 08/19/21 04:03 Plt Count 354 10^3/cmm (130-400) 08/19/21 04:03 MPV 10.3 fL (7.4-10.4) 08/19/21 04:03 Neut % (Auto) 88.7 % 08/19/21 04:03 Lymph % (Auto) 5.4 % 08/19/21 04:03 [place] % (Auto) 4.6 % 08/19/21 04:03 Eos % (Auto) 0.0 % 08/19/21 04:03 Baso % (Auto) 0.2 % 08/19/21 04:03 Neut # (Auto) 20.28 10^3/uL (1.8-7.7) H 08/19/21 04:03 Lymph # (Auto) 1.2 10^3/uL (0.8-4.8) 08/19/21 04:03 [place] # (Auto) 1.0 10^3/uL (0.2-0.9) H 08/19/21 04:03 Eos # (Auto) 0.0 10^3/uL (0.0-0.8) 08/19/21 04:03 Baso # (Auto) 0.0 10^3/uL (0.0-0.1) 08/19/21 04:03 Nucleated RBC % (auto) 0.2 % 08/19/21 04:03 Nucleated RBCs # 0.0 /100WBC 08/19/21 04:03 Differential Comment Yes 08/18/21 14:45 PT 15.70 SECONDS (12.1-14.9) H 08/18/21 15:15 INR 1.22 (0.8-1.2) H 08/18/21 15:15 Specimen Type Arterial 08/18/21 08:38 Sample Site Radial, right 08/18/21 08:38 ABG pH 7.45 (7.35-7.45) 08/18/21 08:38 ABG pCO2 23.9 mmHg (35-45) L 08/18/21 08:38 ABG pO2 65.4 mmHg (80.0-100.0) L 08/18/21 08:38 ABG HCO3 16.7 mmol/L (22-26) L 08/18/21 08:38 ABG O2 Saturation 92.5 08/18/21 08:38 ABG Base Excess -5.3 mmol/L (-2.0-2.0) L 08/18/21 08:38 Jero Test Pos 08/18/21 08:38 A-a O2 Gradient 20.5 mmHg (5-10) H 08/18/21 08:38 Hematocrit 42.4 % (37-47) 08/18/21 08:38 Hgb O2 Saturation 91.6 % (95-100) L 08/18/21 08:38 Carboxyhemoglobin 0.6 %THgb (0.4-20.1) 08/18/21 08:38 Methemoglobin 0.3 % (0.4-1.5) L 08/18/21 08:38 Total Hemoglobin 13.8 g/dL (12-16) 08/18/21 08:38 Sodium 141.0 mmol/L (131-143) 08/18/21 08:38 Potassium 4.1 mmol/L (3.5-5.0) 08/18/21 08:38 Glucose 144.0 mg/dL (70-115) H 08/18/21 08:38 Ionized Calcium 1.2 mmol/L (1.1-1.4) 08/18/21 08:38 O2 Delivery Device Nc 08/18/21 08:38 O2 Liters/Min 4.0 % 08/18/21 08:38 FiO2 36.0 % 08/18/21 08:38 Facility Service Associate ID Ed 08/18/21 08:38 Sodium 138 mmol/L (136-145) 08/19/21 04:03 Potassium 3.9 mmol/L (3.5-5.1) 08/19/21 04:03 Chloride 104 mmol/L (98-107) 08/19/21 04:03 Carbon Dioxide 16 mmol/L (22-29) L 08/19/21 04:03 Anion Gap 21.9 (5-19) H 08/19/21 04:03 BUN 57 mg/dL (8-23) H 08/19/21 04:03 Creatinine 1.6 mg/dL (0.5-0.9) H 08/19/21 04:03 GFR Calculation 32.6 mL/min (90-130) L 08/19/21 04:03 Glucose 135 mg/dL (65-115) H 08/19/21 04:03 Calculated Osmolality 304 mOsm/kg (285-295) H 08/19/21 04:03 Lactic Acid 3.5 mmol/L (0.5-2.2) H 08/18/21 08:40 Lactic Acid (Sepsis) 3.5 mmol/L (0.5-2.2) H 08/18/21 11:00 Calcium 9.4 mg/dL (8.5-10.5) 08/19/21 04:03 Magnesium 2.6 mg/dL (1.7-2.3) H 08/19/21 04:03 Total Bilirubin 1.3 mg/dL (0.15-1.2) H 08/19/21 04:03 AST 353 U/L (0-32) H 08/19/21 04:03 ALT 199 U/L (0-33) H 08/19/21 04:03 Alkaline Phosphatase 852 IU/L (35-105) H 08/19/21 04:03 Creatine Kinase 43 U/L (26-192) 08/18/21 08:15 Troponin T Baseline 18 ng/L (0-10) H 08/18/21 08:15 Troponin T 120 Minute 18.54 ng/L (0-10) H 08/18/21 10:30 Delta Troponin T 0.54 ABS# (0-10) 08/18/21 10:30 Troponin T Hi Sens 6Hr 22.49 ng/L (0-10) H 08/18/21 15:15 Troponin T Hi Sens 6Hr Delta 4.49 ng/L (0-12) 08/18/21 15:15 Total Protein 6.4 g/dL (6.6-8.7) L 08/19/21 04:03 Albumin 2.6 g/dL (3.5-5.2) L 08/19/21 04:03 Globulin 3.8 g/dL (1.3-4.6) 08/19/21 04:03 Urine Color Dark yellow (Yellow) 08/18/21 08:40 Urine Appearance Clear (CLEAR) 08/18/21 08:40 Urine pH 5 (5-7) 08/18/21 08:40 Ur Specific [place] 1.020 (1.005-1.030) 08/18/21 08:40 Urine Protein Neg (Negative) 08/18/21 08:40 Urine Glucose (UA) Norm (Normal) 08/18/21 08:40 Urine Ketones 1+ (Negative) H 08/18/21 08:40 Urine Blood Neg (Negative) 08/18/21 08:40 Urine Nitrate Negative (Negative) 08/18/21 08:40 Urine Bilirubin 1+ (Negative) H 08/18/21 08:40 Urine Urobilinogen 4 mg/dL (Negative) H 08/18/21 08:40 Ur Leukocyte Esterase Negative (Negative) 08/18/21 08:40 Fluid Color Red 08/18/21 14:45 Fluid Appearance Bloody 08/18/21 14:45 Fluid WBC 928 /uL 08/18/21 14:45 Fluid RBC 270.000 10^3/uL 08/18/21 14:45 Fluid Hematocrit 2.6 % 08/18/21 14:45 Fld Polynuclear WBCs # 0.041 08/18/21 14:45 Fld Polynuclear WBCs % 4.500 % 08/18/21 14:45 Fl Mononucl WBCs #(Auto) 0.887 08/18/21 14:45 Fl Mononuclear % Auto 95.500 % 08/18/21 14:45 Fluid Albumin 2.3 g/dL 08/18/21 14:45 Fluid Creatinine 1.13 (0.5-0.9) H 08/18/21 14:45 Pleural Total Protein 3.8 g/dL 08/18/21 14:45 Pleural LDH 806 U/L 08/18/21 14:45 Pleural Glucose 108.0 mg/dL 08/18/21 14:45 Pleural Amylase 57.0 U/L 08/18/21 14:45 Pleural Triglycerides 65 mg/dL 08/18/21 14:45 Micro: Microbiology 08/18/21 09:30 Blood Culture - Preliminary Blood NEGATIVE TO DATE 08/18/21 09:10 Blood Culture - Preliminary Blood NEGATIVE TO DATE A&P Assessment and plan (1) Acute exacerbation of chronic obstructive airways disease: Status: Acute (2) Respiratory distress, acute: Status: Acute (3) Lung mass: Status: Acute (4) Recurrent pleural effusion on right: Status: Acute (5) COPD (chronic obstructive pulmonary disease): Status: Acute (6) Liver masses: Status: Acute Plan #Acute hypoxic respiratory distress in patient with recurrent large right pleural effusion #Acute exacerbation of COPD #Ct 08/07/2021 -possible right sided lung cancer mets to liver-need tissue diagnosis #Elevated LFTs likely secondary to hepatic mets -Patient had IR guided thoracentesis on 08/08/2021-1 L hemorrhagic fluid was drained-exudative in nature; cytology showed atypical cells with no definite malignancy -Based on the CT findings-with significant pleural masses-this fluid is recurrent and is likely malignant-I went ahead and placed a Joseph drain and drained 2.1 L of Hemorrhagic fluid-Awaiting pathology -pleural fluid analysis Showed lymphocytic predominant exudative fluid - postprocedure CT Chest showed:Patchy right lung airspace opacities, some of which demonstrate a nodular component in the right middle lobe likely reflecting a combination of pneumonic infiltrate and malignancy which also involves the anterior mediastinum, with decreased airspace opacification in the right lower lobe suggestive of some resolving infiltrate this region. Several stable enlarged mediastinal lymph nodes measuring up to 11.8 mm, nonspecific. Diffuse metastatic disease throughout the liver suspected.Loculated small to moderate right pleural effusion with a drainage catheter seen in the inferior aspect. -Patient underwent IR guided liver biopsy 08/19/2021-awaiting pathology report - on vancomycin and Zosyn for suspected hospital-acquired pneumonia causing this pleural effusion; pleural fluid cultures Are still pending -Continue scheduled nebulizations, p.o. prednisone for COPD exacerbation -Currently requiring 4 L nasal cannula-can taper down to keep saturations> 88% -AA [id number] likely PE and dyspnea can be explained by pleural effusion and COPD exacerbation -We will start on DVT prophylaxis -We will teach patient and her how to drain it at home and will follow- up as outpatient for cytology and pathology results -We will assess next 24 hours to see if antibiotics can be switched to p.o. route And patient can be Moved out of ICU and possible discharge tomorrow -I will see patient in clinic To remove Josehp drain sutures and follow-up with pathology results in 10 days Recommendations conveyed to Dr. Jones specialist taking care of the patient, RN and RT Attestations Medical Necessity Statement*: Recurrent large right pleural effusion s/p Sarpy drain placed and currently being treated for suspected HCAP Time Spent in Patient Care: Greater than 35 minutes (>than 50% of time spent in counselling and/or direct pt care on unit) . Critical Care Time: The high probability of a clinically significant, sudden or life threatening deterioration of the patient's [pulmonary system(s) required my full and direct attention, intervention and personal management. The critical care time is as shown. This time is in addition to time spent performing any reported procedures but includes the following: [x] Data and vital sign review and interpretation [x] Patient assessment, examination and intervention [x] Documentation [x] Medication orders and management Critical Care Time (min): 55 Coding Level of Care Code Established Pt Acute Brand Specialist for Cyng Fwd Patient Type Established History Comprehensive Exam Comprehensive Medical Decision Making High Complexity Diagnoses Acute exacerbation of chronic obstructive airways disease J44.1 Respiratory distress, acute R06.03 Lung mass R91.8 Recurrent pleural effusion on right J90 COPD (chronic obstructive pulmonary disease) J44.9 Liver masses R16.0 Time Spent (min) 55
--- NOTE | 2021-08-19 11:00 | US_ITS ---
WS: [id number] ULTRASOUND GUIDED BIOPSY LIVER. HISTORY: Metastatic disease. Unknown etiology. Procedure, risks, and complications are explained to the patient. Consent was obtained. Skin is clean sed with ChloraPrep and anesthetized with 1% buffered lidocaine. Anesthesia was present for light sedation. This procedure was done in the patient's room in ICU. Lesion in the liver is targeted in the RIGHT inferior lobe. Small dermatome is made. Liver is biopsie d 4 times with an 18-gauge needle. No complications are evident. Patient tolerated this procedure ext remely well. US/US biopsy liver [id number] IMPRESSION: Uncomplicated ultrasound-guided biopsy metastatic lesions in the liver.
--- NOTE | 2021-08-19 11:34 | P.PN_ITS ---
Subjective Subjective: Yanci reports she is feeling better. No chest discomfort. Joseph drain was placed yesterday, and sore for 2.15 L removed. Medications: Reviewed: Yes Vitals/I&O/Wt Last Vital Signs Temp 98.4 F 08/19/21 03:50 Pulse 111 H 08/19/21 09:30 Resp 18 08/19/21 10:38 BP 124/95 08/19/21 09:30 Pulse Ox 90 08/19/21 10:38 08/18/21 08/19/21 08/19/21 22:59 06:59 14:59 Intake Total 1690 / 1690 2190 / 3880 Output Total 2100 / 2100 200 / 2300 125 / 125 Balance -410 / -410 1989 / 1580 -125 / -125 Weight last 48 hrs Weight 56.382 kg Weight 58.967 kg Physical Exam Narrative: General exam is a white female, much less respiratory distress. Currently on 4 L. Neck is supple no lymphadenopathy or thyromegaly Cardiovascular tachycardic, regular Lungs clear breath sounds but diminished on the right Abdomen is soft nontender positive bowel sounds, no obvious organomegaly but exam difficult in the upright position. Extremities no cyanosis clubbing or edema, cap refill brisk Skin no rash Data : 08/19/21 04:03 08/19/21 04:03 Micro: Microbiology 08/18/21 14:45 Gram Stain - Final Pleural Fluid 08/18/21 09:30 Blood Culture - Preliminary Blood NEGATIVE TO DATE 08/18/21 09:10 Blood Culture - Preliminary Blood NEGATIVE TO DATE A&P Assessment and plan (1) Respiratory failure: Patient with significant acute hypoxic respiratory failure. Currently requiring 4 L of oxygen. This is likely secondary to right pleural effusion and will improve after thoracentesis. Other etiologies could include pneumonia, COPD exacerbation. Overall evidence of respiratory distress such as retractions have improved dramatically with removal of fluid by placing pleural drain Status: Acute (2) Pleural effusion: Appreciate pulmonary consultation Pleural drain was placed yesterday, over 2 L out. Status: Acute (3) COPD (chronic obstructive pulmonary disease): Cannot rule out COPD exacerbation. DuoNeb every 4 hours, budesonide twice daily Continue prednisone 40 mg daily Status: Acute (4) Lung mass: May need biopsy for definitive diagnosis Has evidence of local invasion of pericardial fat, liver, chest wall Echocardiogram ordered Status: Acute (5) Pneumonia: Continue vancomycin and Zosyn empirically Sputum culture, MRSA PCR Status: Acute Plan Acute kidney injury, repeat laboratory tomorrow Transaminitis, secondary to hepatic metastasis. Plan for biopsy today per radiology. Multiple other medical problems as outlined in past medical history including tobacco dependency Full code currently SCDs for DVT prophylaxis. Consider initiation of Lovenox for DVT prophylaxis following CT-guided biopsy of liver metastasis.. Note that CTA was performed August 07 with no pulmonary embolism. I believe pulmonary embolism is not likely currently, and her shortness of breath is secondary to recurrence of pleural effusion. Attestations Medical Necessity Statement*: Needs continued hospitalization for close monitoring and treatment of pneumonia with IV antibiotics. Coding Level of Care Code Acute Behavioral Medical Director for Nadya Godfrey Diagnoses Respiratory failure J96.90 Pleural effusion J90 COPD (chronic obstructive pulmonary disease) J44.9 Lung mass R91.8 Pneumonia J18.9
--- NOTE | 2021-08-19 12:05 | XR_ITS ---
WS: [id number] XR chest 1V portable [id number] REASON FOR EXAM: right side effusion FINDINGS: Complex opacities left hemithorax with multiple lung lesions, lung consolidation, and pleural fluid. A pleural drain is in place. No change in position compared to 08/18/2021. The volume of aerated lung appears decreased compared to the examination of 08/18/2021. There is vague opacity now identifiable over the right upper lung which may represent fluid accumulating in the nohemi r fissure. Chest is otherwise unchanged. XR/XR chest 1V portable [id number] IMPRESSION: Complex abnormality in the right chest with progression as above.
[2021-08-19] MEDS: piperacillin-tazobactam 3.375 GM in sodium chloride 0.9% (plus) 100 ML IV ×2 (13:06→18:36)
--- NOTE | 2021-08-19 13:36 | ANE.PACU2 ---
Inpatient post-anesthesia follow up: Airway intact: Yes Vital signs: Temperature 98.4 F Pulse Rate 113 Respiratory Rate 12 Blood Pressure 107/72 Pulse Oximetry 90 Oxygen Delivery Me thod Nasal Cannula Oxygen Flow Rate 4 Fraction of Inspir ed Oxygen Hydration adequate: Yes Nausea and vomiting: No Pain level: 1 Mental status: Baseline
--- NOTE | 2021-08-19 18:57 | PC.NURSE ---
Patient has only urinated once this shift despite giving bolus.
--- NOTE | 2021-08-19 18:57 | PC.NURSE ---
Pt was transferred to [facility] via wheelchair. All belongings are with .
[2021-08-20] VITALS (18 sets, daily range): BP systolic 91–127; BP diastolic 59–71; PULSE 94–110; RESP 14–19; TEMP 36.4–37.2; O2SAT 89–96
[2021-08-20] MEDS: piperacillin-tazobactam 3.375 GM in sodium chloride 0.9% (plus) 100 ML IV ×2 (02:48→10:43)
[2021-08-20] MEDS: ipratropium-albuterol 3 mL Neb INHALATION ×4 (03:43→20:24)
[2021-08-20] MEDS: HYDROcodone-acetaminophen 5-325 mg Tablet 1 TAB PO ×5 (03:43→23:15)
[2021-08-20 05:28] LABS: Basophils % 0.1 %; Hemoglobin 10.3 g/dL (11.5-15.3); Lymphocytes # 1.3 10^3/uL (0.8-4.8); Lymphocytes % 6.5 %; Mean Corpuscular HGB Conc 32.2 g/dL (30.0-36.0); Mean Corpuscular Hemoglobin 31.8 pg (28.0-34.0); Mean Corpuscular Volume 98.8 fl (81-99); Mean Platelet Volume 10.5 fL (7.4-10.4); Monocytes # 0.7 10^3/uL (0.2-0.9); Monocytes % 3.3 %; Neutrophils # 18.21 10^3/uL (1.8-7.7); Neutrophils % 88.6 %; Nucleated Red Blood Cells # 0.1 /100WBC; Nucleated Red Blood Cells % 0.5 %; Platelet Count 297 10^3/cmm (130-400); Red Blood Count 3.24 10^6/uL (4.1-5.3); Red Cell Distribution Width 14.7 % (12.1-15.1); White Blood Count 20.6 10^3/uL (4.0-10.0)
[2021-08-20 05:29] LABS: Alanine Aminotransferase 176 U/L (0-33); Albumin Level 2.9 g/dL (3.5-5.2); Alkaline Phosphatase 715 IU/L (35-105); Blood Urea Nitrogen 49 mg/dL (8-23); Calcium 9.2 mg/dL (8.5-10.5); Carbon Dioxide 19 mmol/L (22-29); Chloride 100 mmol/L (98-107); Globulin 2.4 g/dL (1.3-4.6); Glomerular Filtration Rate 45.4 mL/min (90-130); Glucose 111 mg/dL (65-115); Osmolality Calculated 290 mOsm/kg (285-295); Sodium 133 mmol/L (136-145); Total Bilirubin 1.8 mg/dL (0.15-1.2); Total Protein 5.3 g/dL (6.6-8.7)
[2021-08-20 05:46] LABS: Anion Gap 18.2 (5-19); Aspartate Amino Transferase 235 U/L (0-32); Potassium 4.2 mmol/L (3.5-5.1)
[2021-08-20] MEDS: vancomycin 1,000 MG in sodium chloride 0.9% 250 ML 250 MG IV (06:48)
[2021-08-20] MEDS: pantoprazole DR 40 mg Tablet PO (08:01)
[2021-08-20] MEDS: metoprolol tartrate 25 mg Tablet PO ×2 (08:01→20:10)
[2021-08-20] MEDS: predniSONE 20 mg Tablet 40 MG PO (08:02)
[2021-08-20] MEDS: budesonide 0.5 mg/2 mL Neb INHALATION ×2 (08:36→20:24)
--- NOTE | 2021-08-20 08:42 | XR_ITS ---
WS: [id number] PORTABLE CHEST HISTORY: pleural effusion COMPARISON: 08/19/2021 Right-sided Joseph drain has been placed. Similar position as the prior examination. There is a persi stent effusion and obscuration of the RIGHT diaphragm and RIGHT lower lung. Increased opacification a t the RIGHT lung base is probably due to an area of atelectasis or pneumonia. Chronic emphysema. No p neumothorax. Cardiac size: Normal. Mediastinum/Aorta: Mild atherosclerosis aorta. No osseous abnormality seen. XR/XR chest 1V portable [id number] IMPRESSION: 1. Placement of the right-sided [place] drain is unchanged since the prior stud y. 2. Persistent consolidation and obscuration of the RIGHT diaphragm and RIGHT l ower lobe. Probably combination of fluid and atelectasis. An underlying pneumon ia is not excluded. No significant improvement since the most recent studies. 3. No pneumothorax
[2021-08-20] MEDS: morphine 4 mg/mL SDV 1 mL IVP ×2 (10:44→20:12)
[2021-08-20] MEDS: sodium chloride 0.9% 1,000 ML 75 ML IV (10:46)
--- NOTE | 2021-08-20 13:41 | PM.PN ---
Subjective Subjective: Patient reports her breathing seems a little better today. She is currently on 6L of oxygen nasal canula at rest. She endorses generalized fatigue and malaise. Her partner is bedside. Reports he still feel uncomfortable with her [place] drain management. We discussed that we would do additional training on the drain. She reports she is too weak to go home. Denies chest pain, abdominal pain, fevers, or chills. Medications: Reviewed: Yes Vitals/I&O/Wt Last Vital Signs Temp 98.1 F 08/20/21 11:47 Pulse 110 H 08/20/21 11:47 Resp 18 08/20/21 11:47 BP 91/59 08/20/21 11:47 Pulse Ox 90 08/20/21 11:47 08/19/21 08/20/21 08/20/21 22:59 06:59 14:59 Intake Total 1200 / 1750 100 / 1850 1655 / 1655 Balance 1200 / 1625 100 / 1725 1655 / 1655 Weight last 48 hrs Weight 56.382 kg Physical Exam Narrative: General: Patient is awake. Appears very fatigued. Head:? Normocephalic. Atraumatic. EOM intact. Neck: No JVD. Cardiovascular: RRR. No gallops. No murmurs. Lungs: Breath sounds markedly diminished in right lung field. Adequate air movement in left lung marie. Not in respiratory distress. Some tachypnea when talking. Skin: No jaundice. No rashes. Abdomen: Normal bowel sounds, abdomen soft and nontender. Extremeties: No cyanosis. Musculoskeletal: No swollen or erythematous joints. Neurological: Moves all 4 extremities. No myoclonus. Data : 08/20/21 04:35 08/20/21 04:35 Micro: Microbiology 08/18/21 14:45 Gram Stain - Final Pleural Fluid Body Fluid Culture - Preliminary 08/18/21 15:37 MRSA Culture - Final Nose 08/18/21 09:30 Blood Culture - Preliminary Blood NEGATIVE TO DATE 08/18/21 09:10 Blood Culture - Preliminary Blood NEGATIVE TO DATE CXR: My impression: Rt consildation and drain Radiologist's impression: Placement of the right-sided [place] drain is unchanged since the prior study. 2.? Persistent consolidation and obscuration of the RIGHT diaphragm and RIGHT lower lobe. Probably combination of fluid and atelectasis. An underlying pneumonia is not excluded. No significant improvement since the most recent studies. 3.? No pneumothorax Other data: HISTOPATHOLOGY REPORT Accession No. [id number] ? Status: Signed Out Final Diagnosis Right pleural fluid cytology: 1.? Positive for malignancy 2.? See comment ?? Dictated by:?Satish Oh Rowland Final Diagnosis Comment The pleural fluid cytology demonstrates malignant cells with high N/C ratio, crush artifact, hyperchromatism, and nuclear molding.? 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 Similar tumor is seen in the liver biopsy ([id number]) which has immunohistochemical studies pending. 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 Status post Joseph drain placement. Continue drainage. Teaching family drain care. Discussed with medical oncology, Dr Albrecht, who has agreed to see her in clinic after discharge when pathology is back, probably next week. Dr. Albrecht nurse to kindly help assist in setting up appt. Status: Acute (2) Liver masses: Status post biopsy. Suspect small cell cancer. Status: Acute (3) Respiratory distress, acute: Improved. Now with acute on chronic hypoxic respiratory failure. Currently 6 liters. Will attempt drainage and see if there is improvement in her hypoxia and continue treating underlying pneumonia. Status: Acute (4) Acute exacerbation of chronic obstructive airways disease: Continue Pulmicort, Duonebs, and prednisone. Pulmonary toilet. Status: Acute (5) Pneumonia: MRSA swab is negative. Discontinue vancomycin. Transition from Zosyn to Unasyn. Status: Acute (6) Respiratory failure: Acute on chronic as above Status: Acute (7) Lung mass: Status: Acute (8) Debility: Likely multifactorial. Continue treating underlying infection and respiratory failure. Discontinue IV fluids. Encourage PO intake. Status: Acute Attestations Medical Necessity Statement*: Patient remains on IV antibiotics for pneumonia and family not yet comfortable or able to provide joseph drain care yet. Coding Level of Care Code Acute Therapeutic Massage Technician for g Fwd Diagnoses Liver masses R16.0 Recurrent pleural effusion on right J90 Respiratory distress, acute R06.03 Acute exacerbation of chronic obstructive airways disease J44.1 Pneumonia J18.9 Respiratory failure J96.90 Lung mass R91.8 Debility R53.81
[2021-08-20] MEDS: ampicillin-sulbactam 1.5 GM in sodium chloride 0.9% (plus) 50 ML IV ×2 (18:06→23:16)
[2021-08-20] MEDS: ondansetron 2 mg/ML SDV 2 mL 4 MG IVP (20:12)
[2021-08-21] VITALS (16 sets, daily range): BP systolic 100–122; BP diastolic 65–78; PULSE 83–113; RESP 16–19; TEMP 36.4–36.9; O2SAT 90–95
[2021-08-21] MEDS: ipratropium-albuterol 3 mL Neb INHALATION ×2 (02:22→08:44)
[2021-08-21] MEDS: morphine 4 mg/mL SDV 1 mL IVP (02:35)
[2021-08-21] MEDS: ondansetron 2 mg/ML SDV 2 mL 4 MG IVP (02:35)
[2021-08-21] MEDS: ampicillin-sulbactam 1.5 GM in sodium chloride 0.9% (plus) 50 ML IV ×4 (04:25→23:46)
[2021-08-21 04:58] LABS: Basophils % 0.2 %; Hematocrit 33.9 % (37.0-47.0); Hemoglobin 10.3 g/dL (11.5-15.3); Lymphocytes # 1.3 10^3/uL (0.8-4.8); Lymphocytes % 6.7 %; Mean Corpuscular HGB Conc 30.4 g/dL (30.0-36.0); Mean Corpuscular Hemoglobin 31.7 pg (28.0-34.0); Mean Corpuscular Volume 104.3 fl (81-99); Monocytes # 0.7 10^3/uL (0.2-0.9); Monocytes % 3.6 %; Neutrophils # 16.85 10^3/uL (1.8-7.7); Neutrophils % 87.8 %; Nucleated Red Blood Cells # 0.1 /100WBC; Nucleated Red Blood Cells % 0.7 %; Platelet Count 351 10^3/cmm (130-400); Red Blood Count 3.25 10^6/uL (4.1-5.3); Red Cell Distribution Width 15.3 % (12.1-15.1); White Blood Count 19.2 10^3/uL (4.0-10.0)
[2021-08-21 05:40] LABS: Albumin Level 2.4 g/dL (3.5-5.2); Blood Urea Nitrogen 36 mg/dL (8-23); Calcium 9.5 mg/dL (8.5-10.5); Carbon Dioxide 16 mmol/L (22-29); Chloride 104 mmol/L (98-107); Glomerular Filtration Rate 84.5 mL/min (90-130); Glucose 98 mg/dL (65-115); Phosphorus 2.2 mg/dL (2.5-4.5); Sodium 133 mmol/L (136-145)
[2021-08-21 05:41] LABS: Anion Gap 17.2 (5-19); Potassium 4.2 mmol/L (3.5-5.1)
[2021-08-21 05:42] LABS: Slide Review Slide Review Perform
[2021-08-21] MEDS: budesonide 0.5 mg/2 mL Neb INHALATION ×3 (08:45→20:13)
[2021-08-21] MEDS: metoprolol tartrate 25 mg Tablet PO ×2 (09:38→20:51)
[2021-08-21] MEDS: predniSONE 20 mg Tablet 40 MG PO (09:38)
[2021-08-21] MEDS: HYDROcodone-acetaminophen 5-325 mg Tablet 1 TAB PO ×2 (09:38→11:53)
[2021-08-21] MEDS: pantoprazole DR 40 mg Tablet PO (09:38)
--- NOTE | 2021-08-21 09:51 | PM.PN ---
Subjective Subjective: Patient reports significant back pain. She states that the pain medicines help some but they do not take it away. She states that her breathing is a little bit better today. Her partner is bedside. They report there is currently no bed in their home. They state that they are trying to get a bed like the hospital bed. Her partner states that he does not feel comfortable managing the drain at home. Briefly discussed alternative placement, but patient states they could not afford any type of placement. She denies fevers, chills, headaches, or chest pain. Medications: Reviewed: Yes Vitals/I&O/Wt Last Vital Signs Temp 98.5 F 08/21/21 07:28 Pulse 83 08/21/21 09:04 Resp 18 08/21/21 08:47 BP 122/78 08/21/21 07:28 Pulse Ox 90 08/21/21 08:47 08/20/21 08/21/21 08/21/21 22:59 06:59 14:59 Intake Total 410 / 3165 100 / 3265 480 / 480 Output Total 450 / 450 Balance -40 / 2715 100 / 2815 480 / 480 Physical Exam Narrative: General: Patient is awake and alert. Appears fatigued. Head: Normocephalic. Atraumatic. EOM intact. Neck: No JVD. Cardiovascular: RRR. No gallops. No murmurs. Lungs: Breath sounds are diminished to bilateral bases, right more so than left. Better air movement today. No use of accessory muscles, no crackles or wheezes. Skin: No jaundice. No rashes. Abdomen: Normal bowel sounds, abdomen soft and nontender. Extremeties: No cyanosis or clubbing. Musculoskeletal: No swollen or erythematous joints. Neurological: Moves all 4 extremities. No myoclonus. Data : 08/21/21 04:18 08/21/21 04:18 Micro: Microbiology 08/18/21 14:45 Mycobacterial Smear - Preliminary Body Fluids - Pleura 08/18/21 14:45 Gram Stain - Final Pleural Fluid Body Fluid Culture - Preliminary A&P Assessment and plan (1) Debility: Likely multifactorial. Treating underlying infection. Status: Acute (2) Liver masses: Status post biopsy. Initial pathology consistent with small cell cancer. Immunohistochemical stains are pending to confirm the diagnosis. Spoke with medical oncology yesterday. Plan to see patient next week in clinic. Status: Acute (3) Lung mass: Likely same pathology as above. Status: Acute (4) Respiratory failure: Acute on chronic hypoxic. She is on 5 L, with baseline of about 3 L. Status: Acute (5) Pneumonia: Continue Unasyn, anticipate transitioning to Augmentin at discharge. Status: Acute (6) Acute exacerbation of chronic obstructive airways disease: Better air movement on today's exam. Continuing prednisone, Pulmicort, and DuoNebs. Status: Acute (7) Recurrent pleural effusion on right: Malignant. Status post [place] drain. Daily to every other day drainage. Initial plan for partner to drain and care for the drain at home may not be feasible. Discussed with case management options that are available. Will need definitive plan prior to discharge. Status: Acute (8) Back pain: Discontinue IV morphine. Increase hydrocodone/APAP. Status: Acute Plan DVT prophylaxis: Lovenox Attestations Medical Necessity Statement*: Patient requires ongoing hospitalization for IV antibiotics and for safe discharge planning. Coding Level of Care Code Acute Financial Retirement Plan Specialist for Nadya Godfrey Diagnoses Debility R53.81 Liver masses R16.0 Lung mass R91.8 Respiratory failure J96.90 Pneumonia J18.9 Acute exacerbation of chronic obstructive airways disease J44.1 Recurrent pleural effusion on right J90 Back pain M54.9
[2021-08-21] MEDS: HYDROcodone-acetaminophen 10-325 mg Tablet 1 TAB PO ×3 (15:19→22:46)
[2021-08-22] VITALS (21 sets, daily range): BP systolic 100–180; BP diastolic 66–100; PULSE 98–130; RESP 16–25; TEMP 36.1–36.8; O2SAT 89–97
[2021-08-22] MEDS: HYDROcodone-acetaminophen 10-325 mg Tablet 1 TAB PO ×6 (01:45→22:38)
[2021-08-22] MEDS: ampicillin-sulbactam 1.5 GM in sodium chloride 0.9% (plus) 50 ML IV ×2 (04:42→22:38)
--- NOTE | 2021-08-22 06:28 | P.CONIM_ITS ---
Providers/Reason For Consult Consulting Physician/Specialty*: Dr. Uriel Raygoza/ General Surgery Reason for Consult*: Need for Mediport insertion Attending Physician: Umesh Stoll MD Primary Care Provider: Bethel Michaels History of Present Illness History of Present Illness Yanci Desai is a 61 year old female who was found to have a right-sided lung mass with mets to the liver. Mediport insertion was requested. Patient reports no pain. She has a chronic cough. Denies fever/chills. Review of Systems General: Reports: 10 or more systems reviewed and unremarkable except in HPI and below Medications/Allergies Home Medications Medication Instructions Recorded Confirmed Last Taken Type acetazolamide 250 mg tablet 250 mg PO DAILY 08/07/21 08/18/21 08/18/21 History metoprolol tartrate 75 mg tablet See Rx Instructions .ROUTE .COMPLEX 08/07/21 08/18/21 08/18/21 History albuterol sulfate 90 mcg/actuation 1 inh INHALATION Q6H PRN #8.5 g 08/11/21 08/18/21 Unknown Rx aerosol inhaler fluticasone 100 mcg-salmeterol 50 1 inh INHALATION BID #60 ea 08/11/21 08/18/21 Unknown Rx mcg/dose blistr powdr for inhalation (Advair Diskus) Allergies Allergy/AdvReac Type Severity Reaction Status Date / Time aspirin Allergy ADR-Nausea Verified 08/07/21 16:22 oxycodone [From OxyContin] Allergy ADR-Halluci Verified 08/07/21 16:21 nating trazodone Allergy ADR-Headach Verified 08/07/21 16:22 e Current Medications Generic Name Dose Route Start Last Admin Trade Name Freq PRN Reason Stop Dose Admin Hydrocodone Bitart/Acetaminophen 1 tab 08/18/21 13:27 08/21/21 09:38 Hydrocodone-Acetaminophen 5-325 Mg Tablet PO 1 tab Q4H PRN Administration MODERATE PAIN Hydrocodone Bitart/Acetaminophen 1 tab 08/21/21 10:02 08/22/21 04:43 Hydrocodone-Acetaminophen 10-325 Mg Tablet PO 1 tab Q3H PRN Administration MODERATE PAIN Budesonide 0.5 mg 08/20/21 20:00 08/21/21 20:13 Budesonide 0.5 Mg/2 Ml Neb INHALATION 0.5 mg BID.RESPIRATORY ELODIA Administration Ampicillin Sodium/Sulbactam 50 mls @ 150 mls/hr 08/20/21 17:30 08/22/21 05:28 Sodium 1.5 gm/ Sodium Chloride IV Infused Q6H ELODIA Infusion Protocol Metoprolol Tartrate 25 mg 08/19/21 09:00 08/21/21 20:51 Metoprolol Tartrate 25 Mg Tablet PO 25 mg BID@0900,2100 ELODIA Administration Ondansetron HCl 4 mg 08/18/21 13:27 08/21/21 02:35 Ondansetron 2 Mg/Ml Sdv 2 Ml IVP 4 mg Q6H PRN Administration NAUSEA AND VOMITING Pantoprazole Sodium 40 mg 08/19/21 09:00 08/21/21 09:[address] 40 Mg Tablet PO 40 mg DAILY ELODIA Administration Prednisone 40 mg 08/19/21 09:00 08/21/21 09:38 Prednisone 20 Mg Tablet PO 40 mg DAILY ELODIA Administration PFSH Acute PFSH: Medical History COPD (chronic obstructive pulmonary disease) Lung mass Pneumonia Social History Smoking and tobacco status: current every day smoker cigarettes Packs smoked per day: 1 [ Other cigarette details: Former 1 to 2 packs/day] Alcohol intake: current Vitals/I&O/Wt Last Vital Signs Temp 97.1 F L 08/22/21 06:26 Pulse 112 H 08/22/21 06:26 Resp 25 H 08/22/21 06:26 BP 180/82 08/22/21 06:26 Pulse Ox 91 08/22/21 06:26 08/21/21 08/21/21 08/22/21 14:59 22:59 06:59 Intake Total 770 / 770 410 / 1180 340 / 1520 Balance 770 / 770 410 / 1180 340 / 1520 Weight last 48 hrs Weight 124 lb 4.8 oz Physical Exam Narrative: General : Patient is well developed , no acute distress, oriented x3 Head : Normal cephalic, a-traumatic. Ears : TM's are without erythema or bulging, Pinnae and external canal are normal.? Hearing is normal. ? Eyes : PERRLA, Funduscopic : Cup to disc ratio are normal bilaterally, normal macula. Sclera and injection are normal. No conjunctival discharge. Nose : Mucous membranes are without erythema. Throat : buccal mucosa is normal, gums are without significant recession or hypertrophy. Lungs : equal chest rise bilaterally, no use of accessory muscles,, trachea is midline. Cor : Rate and rhythm are normal.? No murmur, PMI is not laterally displaced. ? Abdomen : Soft, non-tender, bowel sounds are present. Extremities : No edema, no cyanosis or clubbing, dorsalis pedis pulses are present bilaterally, non-tender to palpation of calves.? Upper extremities are normal bilaterally. Back : No scoliosis, non-tender to palpation, normal lordotic curve, no CVA tenderness. Neuro : CN II - XII intact, Upper and lower extremities have equal and full strength, DTRs are+2/4 bilaterally for Achilles and patella, Negative Romberg's. No tremors noted Data : 08/21/21 04:18 08/21/21 04:18 Micro: Microbiology 08/18/21 14:45 Gram Stain - Final Pleural Fluid Body Fluid Culture - Preliminary A&P Assessment and plan (1) Lung mass: Status: Acute Plan To OR for insertion of Mediport The risks and benefits of the procedure, including but not limited to bleeding, infection, pneumothorax requiring thoracostomy tube, were explained to the patient. She is understanding of the risks and wishes to proceed. Coding Level of Care Code Acute Construction Engineering Manager for Nadya Godfrey Diagnoses Lung mass R91.8
--- NOTE | 2021-08-22 06:34 | SC_ITS ---
WS: [id number] C-arm [place] for CVA [id number] REASON FOR EXAM: mediport insertion FINDINGS: Chemotherapy infusion port in place over the left anterolateral upper chest. Transvenous left subclavian vein catheter with tip at the junction of the left innominate and superio r vena cava. No pneumothorax. SC/C-arm [place] for CVA [id number] IMPRESSION: Chemotherapy port and catheter placement as above.
[2021-08-22] MEDS: sodium chloride 0.9% 1,000 ML 30 ML IV (06:40)
--- NOTE | 2021-08-22 06:50 | ANES.PREANE2 ---
Pre-Anesthetic Assessment Height/Weight: Height 1.63 m Weight 56.382 kg Temp Pulse Resp BP Pulse Ox 97.1 F L 112 H 25 H 180/82 91 08/22/21 06:26 08/22/21 06:26 08/22/21 06:26 08/22/21 06:26 08/22/21 06:26 Preop Diagnosis: lung mass Operation Date: 08/22/21 07:00 Proposed Procedures p Portacath Placement(Not Applicable) - Uriel Raygoza DO Familial anesthetic complications: None Was Beta Carlos taken within 24 hours: Yes Was Clonidine taken within 24 hours: N/A Last intake: Intake Last Liquid Date 08/22/21 Last Liquid Time 04:45 Last Solid Date 08/21/21 Last Solid Time 18:00 Social Tobacco and No alcohol Exam alert, oriented x 3, clear to auscultation bilaterally and regular rate & rhythm Airway Submandibular: within normal limits Cervical ROM: within normal limits Mallampati: Class II Dentition: false Pulmonary Chronic Obstructive Pulmonary Disease Lung CA, pleural effusion, chest tube, High O2 requirements CV/HEM Arrythmia 1. Normal left ventricular cavity size and systolic function. ?Left ventricular ejection fraction is estimated at 70 %. No ?regional wall motion abnormalities. Normal diastolic function. ?2. Normal right ventricular size and systolic function. ?3. Pulmonary artery pressure estimated at 30 mmHg. ?4. Mild tricuspid valve regurgitation. ?5. Trivial pericardial effusion. Prominent epicardial fat. ?6.? No prior similar studies to compare. Hepatic Liver mets Anesthetic Plan ASA status: 4 Anesthesia: MAC Medications/Allergies Home Medications Medication Instructions Recorded Confirmed Last Taken Type acetazolamide 250 mg tablet 250 mg PO DAILY 08/07/21 08/18/21 08/18/21 History metoprolol tartrate 75 mg tablet See Rx Instructions .ROUTE .COMPLEX 08/07/21 08/18/21 08/18/21 History albuterol sulfate 90 mcg/actuation 1 inh INHALATION Q6H PRN #8.5 g 08/11/21 08/18/21 Unknown Rx aerosol inhaler fluticasone 100 mcg-salmeterol 50 1 inh INHALATION BID #60 ea 08/11/21 08/18/21 Unknown Rx mcg/dose blistr powdr for inhalation (Advair Diskus) Allergies Allergy/AdvReac Type Severity Reaction Status Date / Time aspirin Allergy ADR-Nausea Verified 08/07/21 16:22 oxycodone [From OxyContin] Allergy ADR-Halluci Verified 08/07/21 16:21 nating trazodone Allergy ADR-Headach Verified 08/07/21 16:22 e Current Medications Generic Name Dose Route Start Last Admin Trade Name Freq PRN Reason Stop Dose Admin Hydrocodone Bitart/Acetaminophen 1 tab 08/18/21 13:27 08/21/21 09:38 Hydrocodone-Acetaminophen 5-325 Mg Tablet PO 1 tab Q4H PRN Administration MODERATE PAIN Hydrocodone Bitart/Acetaminophen 1 tab 08/21/21 10:02 08/22/21 04:43 Hydrocodone-Acetaminophen 10-325 Mg Tablet PO 1 tab Q3H PRN Administration MODERATE PAIN Budesonide 0.5 mg 08/20/21 20:00 08/21/21 20:13 Budesonide 0.5 Mg/2 Ml Neb INHALATION 0.5 mg BID.RESPIRATORY ELODIA Administration Ampicillin Sodium/Sulbactam 50 mls @ 150 mls/hr 08/20/21 17:30 08/22/21 05:28 Sodium 1.5 gm/ Sodium Chloride IV Infused Q6H ELODIA Infusion Protocol Metoprolol Tartrate 25 mg 08/19/21 09:00 08/21/21 20:51 Metoprolol Tartrate 25 Mg Tablet PO 25 mg BID@0900,2100 ELODIA Administration Ondansetron HCl 4 mg 08/18/21 13:27 08/21/21 02:35 Ondansetron 2 Mg/Ml Sdv 2 Ml IVP 4 mg Q6H PRN Administration NAUSEA AND VOMITING Pantoprazole Sodium 40 mg 08/19/21 09:00 08/21/21 09:[address] 40 Mg Tablet PO 40 mg DAILY ELODIA Administration Prednisone 40 mg 08/19/21 09:00 08/21/21 09:38 Prednisone 20 Mg Tablet PO 40 mg DAILY ELODIA Administration [facility] Anesthesia Medical History COPD (chronic obstructive pulmonary disease) Lung mass Pneumonia Social History Smoking and tobacco status: current every day smoker cigarettes Packs smoked per day: 1 [ Other cigarette details: Former 1 to 2 packs/day] Alcohol intake: current Supplemental [facility] Information Family history reviewed. Not significant. Data Anesthesia : 08/21/21 04:18 08/21/21 04:18 Short CBC 08/21/21 Range/Units 04:18 WBC 19.2 H (4.0-10.0) 10^3/uL Hgb 10.3 L (11.5-15.3) g/dL Hct 33.9 L (37.0-47.0) % MCV 104.3 H D (81-99) fl Plt Count 351 (130-400) 10^3/cmm Neut % (Auto) 87.8 % Neut # (Auto) 16.85 H (1.8-7.7) 10^3/uL BMP 08/21/21 04:18 Sodium 133 L Potassium 4.2 Chloride 104 Carbon Dioxide 16 L BUN 36 H Creatinine 0.7 Glucose 98 Calcium 9.5 Liver Function 08/21/21 Range/Units 04:18 Albumin 2.4 L (3.5-5.2) g/dL Microbiology 08/18/21 14:45 Gram Stain - Final Pleural Fluid Body Fluid Culture - Preliminary Cardiac Studies: Echocardiogram 08/19/21
[2021-08-22] MEDS: sodium chloride 0.9% 100 mL Bag XX (07:36)
[2021-08-22] MEDS: heparin, porcine 1,000 unit/mL INJ 10 mL 10000 UNIT XX (07:36)
--- NOTE | 2021-08-22 08:23 | XR_ITS ---
WS: [id number] PORTABLE CHEST HISTORY: s/p medi port COMPARISON: 08/20/2021 Interval insertion of a LEFT subclavian Mediport with the tip in the mid SVC. No pneumothorax. Additional LEFT chest tube with tip directed superiorly over the mid thorax. Increasing size of the RIGHT pleural effusion now extending over the apex. Areas of atelectasis and v olume loss in the RIGHT thorax. No pneumothorax. Cardiac size: Normal. Mediastinum/Aorta: Focal area of atelectasis over the RIGHT hilum is similar to the prior study. No osseous abnormality seen. XR/XR chest 1V portable [id number] IMPRESSION: 1. Interval insertion of a LEFT subclavian Mediport with tip in the mid SVC. 2. Increasing RIGHT pleural effusion. 3. No change in position of the RIGHT thoracostomy tube. 4. Volume loss and increasing atelectasis throughout the RIGHT lung.
--- NOTE | 2021-08-22 08:32 | PM.OP ---
Operative Report Date of procedure: August 22, 2021 Pre-op diagnosis: Preop Diagnosis lung mass Post-op diagnosis: Right lung mass Procedure: DATE OF SERVICE 08/22/2021 ? PREOP DIAGNOSES 1. Right lung mass 2. Need for long-term IV access-Mediport. ? POSTOP DIAGNOSES 1. Right lung mass 2. Need for long-term IV access-Mediport. ? PROCEDURE PERFORMED Insertion of left subclavian Vein 8-Malay Implantable Port with intraoperative fluoroscopy ? SURGEON Uriel Raygoza, DO ? ANESTHESIA IV sedation with monitored anesthesia care by ELECTRICAL TRYOUT PERSON plus local anesthetic. ? FINDINGS none. ? SPECIMENS SENT TO LAB None. ? ESTIMATED BLOOD LOSS 5 mL. ? COMPLICATIONS None apparent at present. ? CONDITION OF THE PATIENT Stable to the postanesthesia care unit (PACU). ? FLUORO TIME 5 seconds. OPERATIVE INDICATION Right lung mass requiring chemotherapy ? We discussed the risks and benefits, possible alternatives, and possible complications of the above procedure including bleeding, infection, scar, pain, risk of pneumothorax, need for chest tube, possible malfunction or malposition, or flipping of the Mediport, possible infection of the Mediport, bacteremia, possible need for Mediport removal or removal in the future upon completion of treatment. She expressed understanding to our discussion, signed informed consent which is documented on the chart, and wished to proceed to the OR today. ? OPERATIVE NOTE Ms. Desai was taken to the operating room and placed supine on the operating room table. All bony prominences were padded. She was given IV sedation and monitored throughout the case by the anesthesia personnel. SCDs were placed and turned on. The arms were tucked to the side. Patient received Ancef ?2 g preoperatively IV. The bilateral chest wall and breasts were prepped and draped in usual sterile fashion using chlorhexidine base prep. Sterile drapes were applied. We did procedure pause prior to beginning. ? An 18 gauge needle was placed in the left subclavian vein. Dark, nonpulsatile blood was aspirated. A guidewire was placed through the needle centrally toward the right atrial/vena caval junction. Fluoroscopy visualized good placement. The needle was removed and the guidewire was clipped to the drape with a hemostat. ? Further local anesthetic was infiltrated in the soft tissues of the left chest wall and a #15 blade was used to make a horizontal skin incision. A subcutaneous Mediport pocket was created using Bovie cautery, dissecting down through the skin and subcutaneous tissues. Meticulous hemostasis was achieved. The Mediport was sutured in position using 3-0 vicryl suture x2 stitches. ? A #15 blade was used to make a small skin brianne around the guidewire insertion area. The Mediport tubing was tunneled through the subcutaneous tissues up to the needle insertion location. ? A dilator with a peel-away sheath was placed over the guidewire and placed centrally. After measuring with fluoroscopy, the Mediport tubing was cut to length so that the tip would end at the right atrial/vena caval junction. The inner cannula and the guidewire were removed, leaving the dilator sheath in place. The Mediport was flushed. The tip of the catheter was inserted through the peel-away sheath and the peel-away sheath removed in the standard fashion. The Mediport was accessed with a straight [place] needle and dark, nonpulsatile blood was aspirated and flushed using heparinized saline to hep-lock the Mediport.? Final fluoroscopy visualization showed no kink in the catheter and the tip of the Mediport tubing near the right atrial/vena caval junction. ? Both skin incisions were thoroughly irrigated and suctioned dry. Meticulous hemostasis noted. The Mediport incision was closed using interrupted 3-0 Vicryl suture for the deep dermal layer and 4-0 Vicryl run to close the skin edge. The left neck insertion site incision was closed with ?a single subcuticular stitch. Skin glue was applied as a topical dressing. This was allowed to dry. Patient was awakened from anesthesia and transferred via her cart to the recovery room in stable condition. All needle, sponge, and instrument counts were correct per the operating personnel x2 counts. A postoperative CXR was ordered in PACU
[2021-08-22 10:04] LABS: Glucose Point of Care 111 mg/dL (70-110)
--- NOTE | 2021-08-22 11:14 | PC.NURSE ---
Went into the room with DARCI Carpenter Charge. We attached a VINAY drain to the Left lateral chest frain and took her off of the waterseal suctioning device. Emptied 650 ml of serosanginous fluid. Patient stated she could breathe easier. Pt tolerated procedure well.
[2021-08-22 11:35] LABS: Glucose Point of Care 103 mg/dL (70-110)
--- NOTE | 2021-08-22 12:41 | PC.NURSE ---
Called and spoke with Dr. Stoll regarding pain management for Yanci. He told me to continue the 10-325 [place] q3 prn. Called pharmacy to unhold medication.
--- NOTE | 2021-08-22 13:13 | ANE.PACU2 ---
Inpatient post-anesthesia follow up: Airway intact: Yes Vital signs: Temperature 97.9 F Pulse Rate 116 Respiratory Rate 16 Blood Pressure 116/77 Pulse Oximetry 94 Oxygen Delivery Me thod Nasal Cannula Oxygen Flow Rate 8 Fraction of Inspir ed Oxygen Hydration adequate: Yes Nausea and vomiting: No Pain level: 1 Mental status: Baseline
--- NOTE | 2021-08-22 14:25 | PM.PN ---
Subjective Subjective: Patient reports continued back pain. She reports the change in pain med does seem to help a little bit today. She underwent port placement earlier today. Continues to endorse chronic cough. Reports continued shortness of breath. Denies fevers, chills, abdominal pain, or headaches. Endorses generalized malaise and fatigue. Later in the day, her son and her were present. 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 Discussed these results and next step of care with the family. Discussed with Dr. Albrecht who will see patient this afternoon. Medications: Reviewed: Yes Vitals/I&O/Wt Last Vital Signs Temp 97.9 F 08/22/21 12:45 Pulse 116 H 08/22/21 12:45 Resp 16 08/22/21 12:45 BP 116/77 08/22/21 12:45 Pulse Ox 94 08/22/21 12:45 08/21/21 08/22/21 08/22/21 22:59 06:59 14:59 Intake Total 410 / 1180 340 / 1520 650 / 650 Output Total 1135 / 1135 Balance 410 / 1180 340 / 1520 -485 / -485 Weight last 48 hrs Weight 56.382 kg Physical Exam Narrative: General: Patient is awake.? Appears frail. Head:? Normocephalic. Atraumatic. EOM intact. Neck: No JVD. Cardiovascular: Tachycardic. No gallops. No murmurs. Surgical incision site is closed on left chest overlying port. Lungs: Breath sounds are diminished to bilateral bases, right > left.? No use of accessory muscles, no crackles or wheezes. On nasal canula support. Skin: No jaundice. No rashes. Abdomen: Normal bowel sounds, abdomen soft and nontender. Extremeties: No cyanosis or clubbing. Musculoskeletal: No swollen or erythematous joints. Neurological: Moves all 4 extremities. No myoclonus. Data : 08/21/21 04:18 08/21/21 04:18 Micro: Microbiology 08/18/21 14:45 Gram Stain - Final Pleural Fluid Body Fluid Culture - Final A&P Assessment and plan (1) Malignant small cell cancer: Pathology from 08/19 liver biopsy confirms metastatic small cell carcinoma. Patient seeking disease oriented treatment. Port placed this morning by general surgery. Pathology results and diagnosis discussed with family. Psychosocial support given. Patient personally discussed with fuel efficient aircraft designer medical oncologist today. Medical oncologist to evaluate patient this afternoon. Status: Acute (2) Recurrent pleural effusion on right: Malignant in nature. Trialing alternative drain that may be simpler for patient's family to manage at home. RN providing education to family today. Continue draining fluid as needed. Status: Acute (3) Respiratory failure: Acute on chronic hypoxic respiratory failure, still not back to baseline oxygen requirements. Continue weaning oxygen while treating underlying recurrent effusion, pneumonia and COPD exacerbation. Status: Acute (4) Acute exacerbation of chronic obstructive airways disease: Continue prednisone, Pulmicort, duo nebs, and antibiotics. Status: Acute (5) Back pain: Back pain better improved on current regiment, we will continue. Status: Acute (6) Debility: She is markedly debilitated. Likely multifactorial in nature. Continue treating underlying diseases. Her current performance status is likely poor. Status: Acute (7) Liver masses: Status post biopsy as above, consistent with small cell malignancy Status: Acute (8) Pneumonia: Continue Unasyn, still anticipate rotating to Augmentin at discharge. Status: Acute (9) Lung mass: Most likely same pathology as liver mets, small cell malignancy. Status: Acute Plan DVT prophylaxis: Lovenox Attestations Medical Necessity Statement*: Patient requires continued hospitalization for IV antibiotics, [place] drain training, and definitive management of newly diagnosed metastatic small cell cancer. Coding Level of Care Code Acute Consulting Database Administrator for g Fwd Diagnoses Back pain M54.9 Debility R53.81 Liver masses R16.0 Recurrent pleural effusion on right J90 Acute exacerbation of chronic obstructive airways disease J44.1 Pneumonia J18.9 Respiratory failure J96.90 Lung mass R91.8 Malignant small cell cancer C80.1
[2021-08-22] MEDS: ipratropium-albuterol 3 mL Neb INHALATION ×2 (15:12→21:21)
[2021-08-22 17:34] LABS: Glucose Point of Care 121 mg/dL (70-110)
--- NOTE | 2021-08-22 18:01 | P.CONIM_ITS ---
Providers/Reason For Consult Consulting Physician/Specialty*: Medical oncology Reason for Consult*: Small cell lung cancer Requesting Physician: Umesh Stoll MD Attending Physician: Umesh Stoll MD Primary Care Provider: Bethel Michaels History of Present Illness History of Present Illness This is a 61-year-old woman with newly diagnosed extensive stage small cell lung cancer. On 08/07/2021 she was admitted to the hospital after presenting to the emergency room with increasing shortness of breath. She had started outpatient antibiotic therapy for pneumonia approximately [address] pulmonary angiogram showed infiltrative masslike soft tissue centered within the right lung base and invading into the right hilum/mediastinum. Also noted was irregular lobulated masslike soft tissue within the surrounding pleura with a large volume pleural effusion and there was early invasion into the right anterior chest wall deep to the right breast. It also appeared to be extending into the pericardial fat pad. There was diffuse ill-defined masslike infiltration throughout the liver. She underwent thoracentesis with removal of 1000 mL of bloody fluid. The pleural fluid cytology was negative. She was discharged home on antibiotic therapy and on oxygen. She was readmitted to the hospital on 08/18/2021. She then underwent placement of a Pleurx catheter in the right chest on 08/18/2021. On 08/18/2021. She then underwent ultrasound-guided needle biopsy of the liver on 08/19/2021. The liver biopsy was consistent with metastatic small cell carcinoma. The repeat pleural fluid cytology also was positive, consistent with small cell carcinoma. Echocardiogram showed normal left ventricular systolic function with ejection fraction 70%. There was just trivial pericardial effusion. She has been feeling very poorly from a general standpoint. She is generally weak and she has virtually no activity. ECOG score is 3. Appetite is poor. She has had a weight loss in the range of 40 pounds. She has not had fever or night sweats. She has not had sore throat or difficulty swallowing. She does not have much cough. She is short of breath, even with talking. She has not been having chest pain. She has had some postprandial nausea/abdominal discomfort. Bowel function has been okay. She has frequent urination. She is having back pain, which is chronic. She has not recently had headache, but she does complain of having dizziness. She has no numbness/paresthesia or other focal neurologic symptoms. Review of Systems Narrative: Constitutional: Generally weak with minimal activity. Appetite is poor and weight is down about 40 pounds. No fever, night sweats, or hot flashes. ECOG score is 3. Eyes:?No change in vision. ENMT: No hearing loss or tinnitus. No sinus congestion/drainage. No mouth sores. No sore throat or difficulty swallowing. Hematologic/Lymphatic: She has easy bruising. Respiratory: She has shortness of breath. She does not have much cough. No pleuritic pain or hemoptysis. Cardiovascular: No angina pain. No palpitations. Gastrointestinal: She has had some postprandial nausea/abdominal discomfort. No diarrhea or constipation. No blood in the stool or black stools. Genitourinary: No dysuria or hematuria. She has urinary frequency. No urgency or incontinence. Musculoskeletal: She has chronic back pain. Integumentary: No skin rash or other skin changes. Neurologic: No headache. She does have dizziness. No numbness or tingling. No other focal neurologic symptoms. Psych:?No anxiety and depression. No insomnia. Medications/Allergies Home Medications Medication Instructions Recorded Confirmed Last Taken Type albuterol sulfate 90 mcg/actuation 1 inh INHALATION Q6H PRN #8.5 g 08/11/21 08/24/21 Unknown Rx aerosol inhaler fluticasone 100 mcg-salmeterol 50 1 inh INHALATION BID #60 ea 08/11/21 08/24/21 Unknown Rx mcg/dose blistr powdr for inhalation (Advair Diskus) amoxicillin 875 mg-potassium 1 tab PO BID #19 tab 08/23/21 08/24/21 Unknown Rx clavulanate 125 mg tablet hydrocodone 10 mg-acetaminophen 1 tab PO Q4H PRN 7 Days #42 tab 08/23/21 08/24/21 Unknown Rx 325 mg tablet metoprolol tartrate 25 mg tablet 25 mg PO BID@0900,2100 30 Days #30 08/23/21 08/24/21 Unknown Rx tab morphine 15 mg tablet,extended 15 mg PO BID 7 Days #14 tab 08/23/21 08/24/21 Unk nown Rx release ondansetron 4 mg disintegrating 4 mg PO Q8H PRN 7 Days #20 tab 08/23/21 08/24/21 Unknown Rx tablet polyethylene glycol 3350 17 17 g PO DAILY #510 g 08/23/21 08/24/21 Unknown Rx gram/dose oral powder (Miralax) prednisone 10 mg tablets in a dose See Rx Instructions .ROUTE 08/23/21 08/24/21 Unknown Rx pack .COMPLEX #36 ea sennosides 8.6 mg tablet (Senna 17.2 mg PO BID #120 tab 08/23/21 08/24/21 Unknown Rx Lax) Allergies Allergy/AdvReac Type Severity Reaction Status Date / Time aspirin Allergy ADR-Nausea Verified 08/07/21 16:22 oxycodone [From OxyContin] Allergy ADR-Halluci Verified 08/07/21 16:21 nating trazodone Allergy ADR-Headach Verified 08/07/21 16:22 e Current Medications Generic Name Dose Route Start Last Admin Trade Name Freq PRN Reason Stop Dose Admin Hydrocodone Bitart/Acetaminophen 1 tab 08/18/21 13:27 08/21/21 09:38 Hydrocodone-Acetaminophen 5-325 Mg Tablet PO 1 tab Q4H PRN Administration MODERATE PAIN Hydrocodone Bitart/Acetaminophen 1 tab 08/21/21 10:02 08/22/21 15:53 Hydrocodone-Acetaminophen 10-325 Mg Tablet PO 1 tab Q3H PRN Administration MODERATE PAIN Albuterol/Ipratropium 3 ml 08/22/21 15:00 08/22/21 15:12 Ipratropium-Albuterol 3 Ml Neb INHALATION 3 ml Q6H.RESPIRATORY ELODIA Administration Budesonide 0.5 mg 08/20/21 20:00 08/21/21 20:13 Budesonide 0.5 Mg/2 Ml Neb INHALATION 0.5 mg BID.RESPIRATORY ELODIA Administration Ampicillin Sodium/Sulbactam 50 mls @ 150 mls/hr 08/20/21 17:30 08/22/21 05:28 Sodium 1.5 gm/ Sodium Chloride IV Infused Q6H ELODIA Infusion Protocol Metoprolol Tartrate 25 mg 08/19/21 09:00 08/21/21 20:51 Metoprolol Tartrate 25 Mg Tablet PO 25 mg BID@0900,2100 ELODIA Administration Ondansetron HCl 4 mg 08/18/21 13:27 08/21/21 02:35 Ondansetron 2 Mg/Ml Sdv 2 Ml IVP 4 mg Q6H PRN Administration NAUSEA AND VOMITING Pantoprazole Sodium 40 mg 08/19/21 09:00 08/21/21 09:[address] 40 Mg Tablet PO 40 mg DAILY ELODIA Administration Prednisone 40 mg 08/19/21 09:00 08/21/21 09:38 Prednisone 20 Mg Tablet PO 40 mg DAILY ELODIA Administration PFSH Acute PFSH: Medical History COPD (chronic obstructive pulmonary disease) Degenerative joint disease of spine History of migraine Lung mass Pneumonia Tuberculosis She was treated for tuberculosis in 2009. Surgical History History of appendectomy History of cholecystectomy History of hysterectomy with oophorectomy History of surgery on arm Family History Father Colorectal cancer Mother COPD (chronic obstructive pulmonary disease) Social History Smoking and tobacco status: current every day smoker cigarettes Packs smoked per day: 1 [ Other cigarette details: Former 1 to 2 packs/day] Alcohol intake: current Other PFSH information: Supplemental PFSH Information: She has history of smoking up to 2 packs of cigarettes daily. She had cut down to 1/2 pack/day, and she recently quit. She had heavy alcohol use in the past, but she quit drinking many years ago. Vitals/I&O/Wt Last Vital Signs Temp 97.6 F 08/22/21 16:21 Pulse 121 H 08/22/21 16:55 Resp 18 08/22/21 16:21 BP 100/66 08/22/21 16:21 Pulse Ox 95 08/22/21 16:21 08/22/21 08/22/21 08/22/21 06:59 14:59 22:59 Intake Total 340 / 1520 650 / 650 263.5 / 913.5 Output Total 1135 / 1135 75 / 1210 Balance 340 / 1520 -485 / -485 188.5 / -296.5 Weight last 48 hrs Weight 56.382 kg Physical Exam Narrative: Const: She appears generally weak. Eyes: Sclera nonicteric. Conjunctiva clear. ENMT: No lesions noted in the oral cavity. Respiratory: Lungs sound clear at this time and there actually is good air movement bilaterally. Cardiovascular: Heart shows a regular tachycardia. There is no murmur, gallop, or rub noted. Abdomen: Abdomen is soft. Liver does appear to percussed below the costal margin. Spleen is not palpable. There is no abdominal mass or ascites noted. There is no inguinal adenopathy. Extremities: There is no lower extremity edema. Pedal pulses are palpable bilaterally. Neurologic: There are no focal neurologic deficits noted. Data : 08/21/21 04:18 08/21/21 04:18 Micro: Microbiology 08/18/21 14:45 Gram Stain - Final Pleural Fluid Body Fluid Culture - Final A&P Assessment and plan (1) Malignant small cell cancer: Patient with newly diagnosed small cell carcinoma involving the right lung and pleura. There is associated pleural effusion, for which she has undergone placement of Pleurx catheter. She also has extensive metastatic involvement in the liver and the diagnosis was established by ultrasound-guided liver biopsy on 08/19/2021. She has undergone placement of Port-A-Cath venous access device. The CT findings and biopsy results were reviewed with the patient and her family. We discussed the clinical implications. She has extensive stage small cell lung cancer. She is aware that her disease is incurable and not amenable to either surgery or radiation. There is relatively high probability, though, of benefit with chemotherapy, response rates in the range of 60 to 80%. With extensive stage disease the currently recommended first-line treatment is a red cliff based chemotherapy regimen in combination with immunotherapy. In her particular situation I plan to start chemotherapy with carboplatin/etoposide and with subsequent addition of either durvalumab or atezolizumab as soon as we can get either of those available. I reviewed anticipated side effects with the chemotherapy, which may include nausea/vomiting, alopecia, fatigue, and low blood counts, among others. The etoposide initially will be administered at a reduced dosage due to the altered liver function. I anticipate starting her chemotherapy next week, either inpatient or outpatient, depending on her status. Status: Acute Coding Level of Care Code Acute Document Analyst for Nadya Godfrey Diagnoses Malignant small cell cancer C80.1 Time Spent (min) 60
[2021-08-22] MEDS: SODIUM CHLORIDE 0.9% IV (18:19)
[2021-08-22] MEDS: AMPICILLIN SULBACTAM IV (18:19)
[2021-08-22] MEDS: ondansetron 2 mg/ML SDV 2 mL 4 MG IVP (18:57)
[2021-08-22] MEDS: metoprolol tartrate 25 mg Tablet PO (20:54)
[2021-08-22] MEDS: enoxaparin 40 mg/0.4 mL Syringe SUBCUT (20:54)
[2021-08-22] MEDS: budesonide 0.5 mg/2 mL Neb INHALATION (21:21)
[2021-08-23] VITALS (10 sets, daily range): BP systolic 103–125; BP diastolic 65–86; PULSE 102–135; RESP 18–22; TEMP 36.4–36.7; O2SAT 92–97
[2021-08-23] MEDS: HYDROcodone-acetaminophen 10-325 mg Tablet 1 TAB PO ×4 (02:01→14:45)
[2021-08-23] MEDS: ipratropium-albuterol 3 mL Neb INHALATION ×2 (04:08→14:45)
[2021-08-23] MEDS: ampicillin-sulbactam 1.5 GM in sodium chloride 0.9% (plus) 50 ML IV ×2 (05:40→12:20)
[2021-08-23] MEDS: predniSONE 20 mg Tablet 40 MG PO (09:05)
[2021-08-23] MEDS: metoprolol tartrate 25 mg Tablet PO (09:05)
[2021-08-23] MEDS: pantoprazole DR 40 mg Tablet PO (09:07)
[2021-08-23] MEDS: morphine ER (12 HR) 15 mg Tablet PO (12:20)
--- NOTE | 2021-08-23 14:02 | PM.DCS ---
Discharge Providers Date of Admission: 08/18/21 13:27 Date of Discharge: August 23, 2021 Attending Provider at Admission: Inocente Jones MD Attending Provider at Discharge: Umesh Stoll MD Consults: Pulmonary medicine, general surgery, medical oncology Primary Care Provider: Bethel Michaels Diagnoses at Discharge Discharge Diagnosis (1) Malignant small cell cancer: Status: Acute (2) Back pain: Status: Acute (3) Debility: Status: Acute (4) Liver masses: Status: Acute (5) Recurrent pleural effusion on right: Status: Acute (6) Respiratory distress, acute: Status: Acute (7) Acute exacerbation of chronic obstructive airways disease: Status: Acute (8) Pneumonia: Status: Acute (9) Respiratory failure: Status: Acute (10) Lung mass: Status: Acute Reason for Visit Reason for Visit: SOB Hospital Course Hospital Course Yanci Desai is a 61-year-old female with a past medical history significant for recently diagnosed lung mass associated with right-sided effusion with liver metastasis, COPD, chronic hypoxic respiratory failure, and tobacco use disorder who presents to emergency department complaining of shortness of breath, found to have recurrent right-sided malignant effusion, acute on chronic COPD exacerbation secondary to community acquired pneumonia complicated by acute on chronic hypoxic respiratory failure. Pulmonary medicine was consulted and she underwent PleurX drain placement on 08/18 with subsequent drainage. Pleural cytology was positive for malignancy. Spouse was repeatedly trained on drain management. A similar drain was eventually attached to facilitate drainage. Spouse was instructed if he is unable to drain, to call clinic for appointment. Patient's pneumonia was initially with broad spectrum antibiotics, vancomycin and Zosyn, then narrowed to Unasyn, and eventually discharged on Augmentin to complete 14 days of antibiotic treatment. Her COPD exacerbation was treated nebulizing therapies in addition to IV steroids transitiion to prednisone and discharged on prolonged prednisone taper. He respiratory status improvement with treatment. Patient already had home oxygen set up from prior discharge. Patient underwent ultrasound-guided liver biopsy on 08/19 with pathology revealing metastatic small cell lung cancer. Port was placed on 08/22 in anticipation of outpatient chemotherapy. Patient was evaluated by medical oncology on 08/22 with tentative plan to start chemotherapy next week. She was appointment with Dr Albrecht on 08/25. Hospital course was complicated by poor pain control. Pain regimen was adjusted. She is being discharged on low dose morphine ER and as needed hydrocodone/acetaminophen. She is to follow up with her primary care provider in 1 to 3 days to review symptomatology and pain regimen review. She will likely need chronic opiate therapy. She was found to have debility and physical deconditioning. Spouse repeatedly reluctant to take patient home, therefore placement options where discussed with patient and spouse who refused placement. Case management worked extensively to provide resource materials to patient and spouse. Patient discharged to home in stable condition. Noted to be very high risk for readmission. Physical Exam Narrative: General: Patient is awake.?Frail appearing. Head:? Normocephalic. Atraumatic. EOM intact. Neck: No JVD. Cardiovascular: No murmurs. Normal peripheral perfusion. Surgical incision site is closed and intact on left chest overlying port. Lungs: Breath sounds are diminished to bilateral bases, right > left.? No use of accessory muscles, no crackles or wheezes.? On nasal canula support. Skin: No jaundice. No rashes. Abdomen: Normal bowel sounds, abdomen soft and nontender. Extremeties: No cyanosis or clubbing. Musculoskeletal: No swollen or erythematous joints. Neurological: Moves all 4 extremities. No myoclonus. Discharge Data Studies Completed and Pending Completed Studies During Hospitalization Category Date Time Status CT chest wo con [id number] Routine Cat Scan 08/18/21 14:27 Completed CXRP [XR chest 1V portable [id number]] POSTOP Exams 08/22/21 08:23 Completed CXRP [XR chest 1V portable [id number]] Stat Exams 08/19/21 12:05 Completed XR chest 1V portable [id number] Routine Exams 08/20/21 08:42 Completed XR chest 1V portable [id number] Stat Exams 08/18/21 08:19 Completed XR chest 1V portable [id number] Stat Exams 08/18/21 16:49 Completed Cytology [PTH] Routine Pth 08/18/21 14:45 Completed Pathology: Surgical [PTH] Routine Pth 08/19/21 11:58 Completed CV. echo complete* [id number] Routine Ultrasound 08/19/21 07:44 Completed US biopsy liver [id number] Routine Ultrasound 08/19/21 11:00 Completed Pending at discharge Category Date Time Status Mycobacteria, Culture w/Fluor Routine Lab 08/18/21 14:45 Results Sputum Culture and Gram Stain Stat Lab 08/18/21 08:47 Uncollected Radiology Impressions Chest CT 08/18/21 14:27 IMPRESSION: 1. Patchy right lung airspace opacities, some of which demonstrate a nodular component in the right middle lobe likely reflecting a combination of pneumonic infiltrate and malignancy which also involves the anterior mediastinum, with decreased airspace opacification in the right lower lobe suggestive of some resolving infiltrate this region. 2. Emphysematous changes. 3. Several stable enlarged mediastinal lymph nodes measuring up to 11.8 mm, nonspecific. 4. Diffuse metastatic disease throughout the liver suspected. 5. Left kidney cysts, negative for follow-up. 6. Loculated small to moderate right pleural effusion with a drainage catheter seen in the inferior aspect. Liver Biopsy Ultrasound 08/19/21 11:00 IMPRESSION: Uncomplicated ultrasound-guided biopsy metastatic lesions in the liver. C-Arm Fluoroscopy 08/22/21 06:34 IMPRESSION: Chemotherapy port and catheter placement as above. Chest X-Ray 08/22/21 08:23 IMPRESSION: 1. Interval insertion of a LEFT subclavian Mediport with tip in the mid SVC. 2. Increasing RIGHT pleural effusion. 3. No change in position of the RIGHT thoracostomy tube. 4. Volume loss and increasing atelectasis throughout the RIGHT lung. Laboratory Results WBC 19.2 10^3/uL (4.0-10.0) H 08/21/21 04:18 RBC 3.25 10^6/uL (4.1-5.3) L 08/21/21 04:18 Hgb 10.3 g/dL (11.5-15.3) L 08/21/21 04:18 Hct 33.9 % (37.0-47.0) L 08/21/21 04:18 MCV 104.3 fl (81-99) H D 08/21/21 04:18 MCH 31.7 pg (28.0-34.0) 08/21/21 04:18 MCHC 30.4 g/dL (30.0-36.0) D 08/21/21 04:18 RDW 15.3 % (12.1-15.1) H 08/21/21 04:18 Plt Count 351 10^3/cmm (130-400) 08/21/21 04:18 MPV 11.0 fL (7.4-10.4) H 08/21/21 04:18 Neut % (Auto) 87.8 % 08/21/21 04:18 Lymph % (Auto) 6.7 % 08/21/21 04:18 [place] % (Auto) 3.6 % 08/21/21 04:18 Eos % (Auto) 0.0 % 08/21/21 04:18 Baso % (Auto) 0.2 % 08/21/21 04:18 Neut # (Auto) 16.85 10^3/uL (1.8-7.7) H 08/21/21 04:18 Lymph # (Auto) 1.3 10^3/uL (0.8-4.8) 08/21/21 04:18 [place] # (Auto) 0.7 10^3/uL (0.2-0.9) 08/21/21 04:18 Eos # (Auto) 0.0 10^3/uL (0.0-0.8) 08/21/21 04:18 Baso # (Auto) 0.0 10^3/uL (0.0-0.1) 08/21/21 04:18 Nucleated RBC % (auto) 0.7 % 08/21/21 04:18 Nucleated RBCs # 0.1 /100WBC 08/21/21 04:18 Differential Comment Yes 08/18/21 14:45 PT 15.70 SECONDS (12.1-14.9) H 08/18/21 15:15 INR 1.22 (0.8-1.2) H 08/18/21 15:15 Specimen Type Arterial 08/18/21 08:38 Sample Site Radial, right 08/18/21 08:38 ABG pH 7.45 (7.35-7.45) 08/18/21 08:38 ABG pCO2 23.9 mmHg (35-45) L 08/18/21 08:38 ABG pO2 65.4 mmHg (80.0-100.0) L 08/18/21 08:38 ABG HCO3 16.7 mmol/L (22-26) L 08/18/21 08:38 ABG O2 Saturation 92.5 08/18/21 08:38 ABG Base Excess -5.3 mmol/L (-2.0-2.0) L 08/18/21 08:38 Jero Test Pos 08/18/21 08:38 A-a O2 Gradient 20.5 mmHg (5-10) H 08/18/21 08:38 Hematocrit 42.4 % (37-47) 08/18/21 08:38 Hgb O2 Saturation 91.6 % (95-100) L 08/18/21 08:38 Carboxyhemoglobin 0.6 %THgb (0.4-20.1) 08/18/21 08:38 Methemoglobin 0.3 % (0.4-1.5) L 08/18/21 08:38 Total Hemoglobin 13.8 g/dL (12-16) 08/18/21 08:38 Sodium 141.0 mmol/L (131-143) 08/18/21 08:38 Potassium 4.1 mmol/L (3.5-5.0) 08/18/21 08:38 Glucose 144.0 mg/dL (70-115) H 08/18/21 08:38 Ionized Calcium 1.2 mmol/L (1.1-1.4) 08/18/21 08:38 O2 Delivery Device Nc 08/18/21 08:38 O2 Liters/Min 4.0 % 08/18/21 08:38 FiO2 36.0 % 08/18/21 08:38 Aircraft Structure Mechanic ID Ed 08/18/21 08:38 Sodium 133 mmol/L (136-145) L 08/21/21 04:18 Potassium 4.2 mmol/L (3.5-5.1) 08/21/21 04:18 Chloride 104 mmol/L (98-107) 08/21/21 04:18 Carbon Dioxide 16 mmol/L (22-29) L 08/21/21 04:18 Anion Gap 17.2 (5-19) 08/21/21 04:18 BUN 36 mg/dL (8-23) H 08/21/21 04:18 Creatinine 0.7 mg/dL (0.5-0.9) 08/21/21 04:18 GFR Calculation 84.5 mL/min (90-130) L 08/21/21 04:18 Glucose 98 mg/dL (65-115) 08/21/21 04:18 POC Glucose 121 mg/dL (70-110) H 08/22/21 16:55 Calculated Osmolality 290 mOsm/kg (285-295) 08/20/21 04:35 Lactic Acid 3.5 mmol/L (0.5-2.2) H 08/18/21 08:40 Lactic Acid (Sepsis) 3.5 mmol/L (0.5-2.2) H 08/18/21 11:00 Calcium 9.5 mg/dL (8.5-10.5) 08/21/21 04:18 Phosphorus 2.2 mg/dL (2.5-4.5) L 08/21/21 04:18 Magnesium 2.6 mg/dL (1.7-2.3) H 08/19/21 04:03 Total Bilirubin 1.8 mg/dL (0.15-1.2) H 08/20/21 04:35 AST 235 U/L (0-32) H 08/20/21 04:35 ALT 176 U/L (0-33) H 08/20/21 04:35 Alkaline Phosphatase 715 IU/L (35-105) H 08/20/21 04:35 Creatine Kinase 43 U/L (26-192) 08/18/21 08:15 Troponin T Baseline 18 ng/L (0-10) H 08/18/21 08:15 Troponin T 120 Minute 18.54 ng/L (0-10) H 08/18/21 10:30 Delta Troponin T 0.54 ABS# (0-10) 08/18/21 10:30 Troponin T Hi Sens 6Hr 22.49 ng/L (0-10) H 08/18/21 15:15 Troponin T Hi Sens 6Hr Delta 4.49 ng/L (0-12) 08/18/21 15:15 Total Protein 5.3 g/dL (6.6-8.7) L 08/20/21 04:35 Albumin 2.4 g/dL (3.5-5.2) L 08/21/21 04:18 Globulin 2.4 g/dL (1.3-4.6) 08/20/21 04:35 Urine Color Dark yellow (Yellow) 08/18/21 08:40 Urine Appearance Clear (CLEAR) 08/18/21 08:40 Urine pH 5 (5-7) 08/18/21 08:40 Ur Specific [place] 1.020 (1.005-1.030) 08/18/21 08:40 Urine Protein Neg (Negative) 08/18/21 08:40 Urine Glucose (UA) Norm (Normal) 08/18/21 08:40 Urine Ketones 1+ (Negative) H 08/18/21 08:40 Urine Blood Neg (Negative) 08/18/21 08:40 Urine Nitrate Negative (Negative) 08/18/21 08:40 Urine Bilirubin 1+ (Negative) H 08/18/21 08:40 Urine Urobilinogen 4 mg/dL (Negative) H 08/18/21 08:40 Ur Leukocyte Esterase Negative (Negative) 08/18/21 08:40 Fluid Color Red 08/18/21 14:45 Fluid Appearance Bloody 08/18/21 14:45 Fluid WBC 928 /uL 08/18/21 14:45 Fluid RBC 270.000 10^3/uL 08/18/21 14:45 Fluid Hematocrit 2.6 % 08/18/21 14:45 Fld Polynuclear WBCs # 0.041 08/18/21 14:45 Fld Polynuclear WBCs % 4.500 % 08/18/21 14:45 Fl Mononucl WBCs #(Auto) 0.887 08/18/21 14:45 Fl Mononuclear % Auto 95.500 % 08/18/21 14:45 Fluid Albumin 2.3 g/dL 08/18/21 14:45 Fluid Creatinine 1.13 (0.5-0.9) H 08/18/21 14:45 Pleural Total Protein 3.8 g/dL 08/18/21 14:45 Pleural LDH 806 U/L 08/18/21 14:45 Pleural Glucose 108.0 mg/dL 08/18/21 14:45 Pleural Amylase 57.0 U/L 08/18/21 14:45 Pleural Triglycerides 65 mg/dL 08/18/21 14:45 Vancomycin Trough 15.0 ug/mL (10-15) 08/21/21 04:18 Procedures Performed Ultrasound-guided right PleurX catheter placement, 08/18/21 Ultrasound-guided liver biopsy, 08/19/21 Insertion of left subclavian Vein 8-[place] Implantable Port with intraoperative fluoroscopy, 08/22/21 Vitals Last Vital Signs Temp 97.9 F 08/23/21 12:00 Pulse 111 H 08/23/21 12:00 Resp 20 H 08/23/21 12:00 BP 125/80 08/23/21 12:00 Pulse Ox 94 08/23/21 12:00 Discharge Plan Discharge Patient Disposition: Home Condition: Stable Prescriptions: New amoxicillin-pot clavulanate 875-125 mg tablet 1 tab PO BID Qty: 19 0RF hydrocodone-acetaminophen 10-325 mg Tablet 1 tab PO Q4H PRN (Reason: Moderate Pain) 7 Days Qty: 42 0RF morphine 15 mg Tablet Extended Release 15 mg PO BID 7 Days Qty: 14 0RF metoprolol tartrate 25 mg Tablet 25 mg PO BID@0900,2100 30 Days Qty: 30 0RF ondansetron 4 mg tablet,disintegrating 4 mg PO Q8H PRN (Reason: nausea and vomiting) 7 Days Qty: 20 0RF prednisone 10 mg tablets,dose pack See Rx Instructions .ROUTE .COMPLEX Qty: 36 0RF Rx Instructions: prednisone 5 mg: take 8 tablets (40 mg) on Day 1; 7 tablets (35 mg) on Day 2; then decrease by 1 tablet every day until finished Senna Lax 8.6 mg tablet 17.2 mg PO BID Qty: 120 0RF Miralax 17 gram/dose powder 17 g PO DAILY Qty: 510 0RF Rx Instructions: Hold for loose stools Continued albuterol sulfate 90 mcg/actuation HFA aerosol inhaler 1 inh inhalation Q6H PRN (Reason: shortness of breath or wheezing) Qty: 8.5 0RF fluticasone propion-salmeterol [Advair Diskus] 100-50 mcg/dose blister with device 1 inh inhalation BID Qty: 60 0RF Discontinued acetazolamide 250 mg tablet 250 mg PO DAILY 0RF metoprolol tartrate 75 mg tablet See Rx Instructions .ROUTE .COMPLEX 0RF Rx Instructions: take 1/2 tab AM and 1/2 tab PM Discharge Orders: Discharge Order (Routine); Ordered 08/23/21 Ordered By: Umesh Stoll Referrals: Bethel Michaels [Primary Care Provider] - 1-3 days (Please call Wednesday morning to schedule a hospital follow-up appointment. ) Ole Albrecht MD [Hospitalist] - 08/25/21 2:00 pm Discharge Diet: Cardiac Discharge Activity: Increase activity as tolerated Patient Instructions: Metoprolol (By mouth), Hydrocodone/Acetaminophen (By mouth), Amoxicillin/Clavulanate Potassium (By mouth), Laxative, Stool Softeners (By mouth), Ondansetron (By mouth), Polyethylene Glycol 3350 (By mouth), Morphine, Slow Release (By mouth), Opioid Safety Activity Restrictions/Additional Instructions: No driving while on opiates. Empty right side PleurX drain once daily. Discharge Attestations Time Spent in Discharge Care*: greater than 30 min Quality Metrics Clinical Quality Measures [ No reported AMI, CVA or VTE this stay] Coding Level of Care Code Acute Chg FW DC note Diagnoses Malignant small cell cancer C80.1 Back pain M54.9 Debility R53.81 Liver masses R16.0 Recurrent pleural effusion on right J90 Respiratory distress, acute R06.03 Acute exacerbation of chronic obstructive airways disease J44.1 Pneumonia J18.9 Respiratory failure J96.90 Lung mass R91.8
--- NOTE | 2021-08-23 16:36 | PC.NURSE ---
Patient elizabeth was shown how to empty VINAY drain from Right lateral chest drain. He demonstrated and emptied it before the patient was discharged.
== END 2021-08-23 16:30 | disposition home or self-care (01) | DRG 166 ==
LOC: ER 10:25 → ICU 14:00 → MEDSURG 08-19 19:42
PROVIDERS: Internal Medicine Pulmonary Disease; Surgery; Admitting Provider Internal Medicine; Emergency Provider Family Medicine; PCP Family Medicine; Visit Provider Internal Medicine
PROC: 02HV33Z Insertion of Infusion Device into Superior Vena Cava, Percutaneous Approach (ICD-10-PCS; principal; 2021-08-22 07:00)
DX: C34.91 Malignant neoplasm of unspecified part of right bronchus or lung (principal); J18.9 Pneumonia, unspecified organism; J96.21 Acute and chronic respiratory failure with hypoxia; J91.0 Malignant pleural effusion; C78.7 Secondary malignant neoplasm of liver and intrahepatic bile duct; J44.1 Chronic obstructive pulmonary disease with (acute) exacerbation; J44.0 Chronic obstructive pulmonary disease with (acute) lower respiratory infection; N17.9 Acute kidney failure, unspecified; D53.9 Nutritional anemia, unspecified; R53.81 Other malaise; F17.211 Nicotine dependence, cigarettes, in remission; M54.9 Dorsalgia, unspecified; Z79.82 Long term (current) use of aspirin
CPT/HCPCS: 36410; 36415; 36416; 36600; 47000; 71045; 71250; 76942; 77001; 80051; 80053; 80069; 80202; 80503; 81003; 82042; 82150; 82330; 82550; 82570; 82805; 82945; 82962; 83605; 83615; 83735; 84157; 84478; 84484; 85014; 85025; 85610; 87015; 87040; 87070; 87075; 87116; 87205; 87206; 87641; 87801; 88108; 88305; 88307; 88342; 89050; 93005; 93306; 94640; 94660; 96365; 96367; 96372; 96375; 99291; C1729; C1788; J0295; J0690; J1644; J1650; J1885; J2250; J2270; J2370; J2405; J2543; J2704; J2930; J3010; J3370; J7030; J7040; J7050; J7512; J7626

== ENCOUNTER 2021-08-24 02:09 | Inpatient (IN) | payer MEDICAID, SELFPAY ==
--- NOTE | 2021-08-22 | SCC_ITS ---
PROCEDURE DONE: mediport insertion 12.4 seconds of fluoroscopic guidance, for a cumulative dose of 2.73 mGy, was provided to Dr. Raygoza by the radiology department. C-arm images of the chest were saved for the patient's permanent record. [facility]
[2021-08-24] VITALS (16 sets, daily range): BP systolic 87–137; BP diastolic 64–87; PULSE 117–136; RESP 12–24; TEMP 36.3–37; O2SAT 89–98; BMI 20.9; BMI 23.8
--- NOTE | 2021-08-24 03:05 | XRR_ITS ---
PROCEDURE INFORMATION: Exam: XR Chest Exam date and time: 08/24/2021 3:31 AM Age: 61 years old Clinical indication: Dyspnea; Prior surgery; Surgery date: 6+ months; Surgery type: Port; Patient HX: Lung cancer; Additional info: SOB TECHNIQUE: Imaging protocol: XR of the chest. Views: 1 view. COMPARISON: CR XR chest 1V portable [id number] 08/22/2021 8:33 AM FINDINGS: Tubes, catheters and devices: A MediPort catheter is placed via the left subclavian vein with its tip at the level of the superior vena cava. There is a right thoracostomy tube present. Lungs: There are patchy and strandy opacity seen in the right lower hemithorax compatible with a right basilar atelectasis versus pneumonia. There are soft tissue densities seen in the right hilar region Pleural spaces: The right hemidiaphragm is obscured likely secondary to a right pleural effusion. Heart/Mediastinum: Unremarkable. No cardiomegaly. Bones/joints: Unremarkable. XR/XR chest 1V portable [id number] IMPRESSION: 1. A right pleural effusion is again seen unchanged from 08/22/2021. 2. Patchy and strandy opacities are seen in the right lung base compatible with right basilar atelectasis versus pneumonia. 3. Stable right thoracostomy tube 4. Stable soft tissue densities overlying the right hilar region.
--- NOTE | 2021-08-24 03:05 | ECG_ITS ---
[facility] Test Date: 2021-08-24 Pat Name: Yanci Desai Department: Room: Gender: Female Data Control Assistant: : 1960 Requested By: Keith Calvo Order Number: [id number] Dion MD: Christi Bolton M.D. Measurements Intervals Ashley Rate: 129 P: 61 AK: 111 QRS: 53 QRSD: 64 T: 43 QT: 285 QTc: 419 Interpretive Statements SINUS TACHYCARDIA WITH SHORT AK INTERVAL ABNORMAL RHYTHM ECG Compared to ECG 08/18/2021 14:46:16 Myocardial infarct finding no longer present Electronically Signed On 08-24-2021 13:24:35 CDT by Christi Bolton M.D. [id number]
[2021-08-24 03:19] LABS: Basophils % 0.1 %; Hematocrit 33.5 % (37.0-47.0); Hemoglobin 10.9 g/dL (11.5-15.3); Mean Corpuscular HGB Conc 32.5 g/dL (30.0-36.0); Mean Corpuscular Hemoglobin 31.8 pg (28.0-34.0); Mean Corpuscular Volume 97.7 fl (81-99); Mean Platelet Volume 10.4 fL (7.4-10.4); Monocytes # 0.7 10^3/uL (0.2-0.9); Monocytes % 4.4 %; Neutrophils # 14.75 10^3/uL (1.8-7.7); Neutrophils % 87.9 %; Nucleated Red Blood Cells # 0.3 /100WBC; Nucleated Red Blood Cells % 1.7 %; Platelet Count 282 10^3/cmm (130-400); Red Blood Count 3.43 10^6/uL (4.1-5.3); White Blood Count 16.8 10^3/uL (4.0-10.0)
[2021-08-24 03:42] LABS: D Dimer 9.91 ug/mIFEU (0-0.59)
[2021-08-24 03:51] LABS: Alanine Aminotransferase 182 U/L (0-33); Albumin Level 2.7 g/dL (3.5-5.2); Anion Gap 20.9 (5-19); Aspartate Amino Transferase 283 U/L (0-32); Blood Urea Nitrogen 44 mg/dL (8-23); Calcium 9.8 mg/dL (8.5-10.5); Carbon Dioxide 17 mmol/L (22-29); Chloride 103 mmol/L (98-107); Globulin 3.2 g/dL (1.3-4.6); Glucose 116 mg/dL (65-115); NT Pro B Type Natriuretic Pept 976 pg/mL (0-125); Osmolality Calculated 294 mOsm/kg (285-295); Potassium 4.9 mmol/L (3.5-5.1); Sodium 136 mmol/L (136-145); Total Bilirubin 3.7 mg/dL (0.15-1.2); Total Protein 5.9 g/dL (6.6-8.7)
[2021-08-24 04:09] LABS: Alkaline Phosphatase 1604 IU/L (35-105)
--- NOTE | 2021-08-24 04:41 | W.ED.SOB ---
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 She presents with acute onset shortness of breath, and pleuritic pain made worse by her oxygen not working at home. She complains of back pain, shortness of breath. She was recently released from the hospital from a prolonged stay due to malignant pleural effusion, pneumonia causing hypoxic respiratory failure. She presents short of breath, tachycardic, and in pain. MD elicited complaint: shortness of breath and chest pain Pertinent past history: COPD, pneumonia and other Onset (ago): day(s) Context: recent illness and occurred during exertion Timing: constant Severity: severe Exacerbating factors: lying flat, exertion and talking Relieving factors: oxygen Associated symptoms: Reports chest pain; Deny fever(s) Treatment prior to arrival: oxygen and bronchodilator Review of Systems Const: Denies: fever(s) or chills ENMT: Denies: throat pain Card: Reports: chest pain Resp: Reports: dyspnea, productive cough and non-productive cough Musc: Reports: back pain (chronic) [facility] ED PFSH: Medical History COPD (chronic obstructive pulmonary disease) Degenerative joint disease of spine History of migraine Lung mass Pneumonia Tuberculosis She was treated for tuberculosis in 2009. Surgical History History of appendectomy History of cholecystectomy History of hysterectomy with oophorectomy History of surgery on arm Family History Father Colorectal cancer Mother COPD (chronic obstructive pulmonary disease) Social History Smoking and tobacco status: current every day smoker cigarettes Packs smoked per day: 1 [ Other cigarette details: Former 1 to 2 packs/day] Alcohol intake: current Physical Exam Const: GENERAL APPEARANCE: cooperative and frail appearing NUTRITIONAL APPEARANCE: thin HENMT: COMMON NORMALS: normocephalic, atraumatic and Normal external nose present HEAD & SCALP: normocephalic and atraumatic FACE & SINUS: normal facial exam NOSE: Normal external nose present Eye: COMMON NORMALS: Equal, round and reactive pupils present and EOMs intact bilaterally PUPIL: Yes Equal, round and reactive pupils present Chest: CHEST: Yes Symmetrical chest wall rise Resp: EFFORT & INSPECTION: Yes respiratory distress and Yes uses accessory muscles AUSCULTATION: diminished lung sounds Cardio: COMMON NORMALS: regular rhythm RATE: tachycardic RHYTHM: regular rhythm GI: COMMON NORMALS: Soft to palpation PALPATION: Yes Soft to palpation Extremity: COMMON NORMALS: no pedal edema Neuro: CHINEDU COMA SCALE: document GCS findings Farrell coma scale eye opening: Spontaneous Farrell coma scale verbal response: Orientated Chinedu coma scale motor response: Obey commands Farrell coma scale total score: 15 Course Vital Signs: Vital signs: Vital Signs Temperature 98.3 F 08/25/21 00:00 Pulse Rate 119 H 08/25/21 00:00 Respiratory Rate 20 H 08/25/21 00:54 Blood Pressure 113/74 08/25/21 00:00 Pulse Oximetry 90 08/25/21 00:00 MDM - SOB/Dyspnea Medical Decision Making 61-year-old lady who is very oxygen dependent. Her power is out at home, and she has no oxygen. She presents extremely short of breath due to this. She is also very tachycardic in the 120s and 130s. Her D-dimer is 10. Her white blood cell count is 17. Hemoglobin 11. BUN and creatinine are 44 and 1 respectively. She is being given IV fluids. She is on oxygen. Chest x-ray reveals a pleural effusion on the right with possible infiltrate as well. Awaiting CTA result for more definitive answer. She will require admission. Lab Data : 08/24/21 03:10 08/24/21 03:10 Labs/Radiology: Radiology Impressions Chest X-Ray 08/24/21 03:05 IMPRESSION: 1. A right pleural effusion is again seen unchanged from 08/22/2021. 2. Patchy and strandy opacities are seen in the right lung base compatible with right basilar atelectasis versus pneumonia. 3. Stable right thoracostomy tube 4. Stable soft tissue densities overlying the right hilar region. Chest CTA 08/24/21 05:15 IMPRESSION: 1. There is no evidence for pulmonary emboli. 2. Background of severe centrilobular emphysema and pulmonary fibrosis. 3. Large right middle lobe and hilar mass as described above. Multiple rounded pulmonary masses and anterior mediastinal masses are seen as well. These appear similar to those present on 08/18/2021. 4. There is bulky cervical and mediastinal lymphadenopathy. A prominent celiac lymph node is seen as well. 5. Lobulated pleural thickening seen within the right hemithorax compatible with pleural based malignancy. 6. Decreased right pleural effusion compared with 08/18/2021. 7. Diffuse metastatic liver disease. 8. Bilateral benign appearing renal cysts. The largest is seen on the left measuring 2.7 cm. COMMENTS: Consistent with the [employer]'s Incidental Findings Committee white paper (J Am Nicole Radiol 2018): Any incidental renal lesion less than 1 cm or classified as too small to characterize, or any incidental cystic renal lesion characterized as simple-appearing, is likely benign. No follow-up imaging is recommended for these lesions per consensus recommendations based on imaging criteria. Laboratory Results WBC 16.8 10^3/uL (4.0-10.0) H 08/24/21 03:10 RBC 3.43 10^6/uL (4.1-5.3) L 08/24/21 03:10 Hgb 10.9 g/dL (11.5-15.3) L 08/24/21 03:10 Hct 33.5 % (37.0-47.0) L 08/24/21 03:10 MCV 97.7 fl (81-99) 08/24/21 03:10 MCH 31.8 pg (28.0-34.0) 08/24/21 03:10 MCHC 32.5 g/dL (30.0-36.0) 08/24/21 03:10 RDW 16.0 % (12.1-15.1) H 08/24/21 03:10 Plt Count 282 10^3/cmm (130-400) 08/24/21 03:10 MPV 10.4 fL (7.4-10.4) 08/24/21 03:10 Neut % (Auto) 87.9 % 08/24/21 03:10 Lymph % (Auto) 6.0 % 08/24/21 03:10 [place]ilton % (Auto) 4.4 % 08/24/21 03:10 Eos % (Auto) 0.0 % 08/24/21 03:10 Baso % (Auto) 0.1 % 08/24/21 03:10 Neut # (Auto) 14.75 10^3/uL (1.8-7.7) H 08/24/21 03:10 Lymph # (Auto) 1.0 10^3/uL (0.8-4.8) 08/24/21 03:10 [place]ilton # (Auto) 0.7 10^3/uL (0.2-0.9) 08/24/21 03:10 Eos # (Auto) 0.0 10^3/uL (0.0-0.8) 08/24/21 03:10 Baso # (Auto) 0.0 10^3/uL (0.0-0.1) 08/24/21 03:10 Nucleated RBC % (auto) 1.7 % 08/24/21 03:10 Nucleated RBCs # 0.3 /100WBC 08/24/21 03:10 D-Dimer 9.91 ug/mIFEU (0-0.59) H 08/24/21 03:10 Sodium 136 mmol/L (136-145) 08/24/21 03:10 Potassium 4.9 mmol/L (3.5-5.1) 08/24/21 03:10 Chloride 103 mmol/L (98-107) 08/24/21 03:10 Carbon Dioxide 17 mmol/L (22-29) L 08/24/21 03:10 Anion Gap 20.9 (5-19) H 08/24/21 03:10 BUN 44 mg/dL (8-23) H 08/24/21 03:10 Creatinine 1.0 mg/dL (0.5-0.9) H 08/24/21 03:10 GFR Calculation 56.0 mL/min (90-130) L 08/24/21 03:10 Glucose 116 mg/dL (65-115) H 08/24/21 03:10 Calculated Osmolality 294 mOsm/kg (285-295) 08/24/21 03:10 Lactic Acid 2.0 mmol/L (0.5-2.2) 08/24/21 03:10 Calcium 9.8 mg/dL (8.5-10.5) 08/24/21 03:10 Total Bilirubin 3.7 mg/dL (0.15-1.2) H 08/24/21 03:10 AST 283 U/L (0-32) H 08/24/21 03:10 ALT 182 U/L (0-33) H 08/24/21 03:10 Alkaline Phosphatase 1604 IU/L (35-105) H* 08/24/21 03:10 NT-Pro-B Natriuret Pep 976 pg/mL (0-125) H 08/24/21 03:10 Total Protein 5.9 g/dL (6.6-8.7) L 08/24/21 03:10 Albumin 2.7 g/dL (3.5-5.2) L 08/24/21 03:10 Globulin 3.2 g/dL (1.3-4.6) 08/24/21 03:10 Discharge Plan Discharge Patient Disposition: Admitted As Inpatient Admit Provider: Stevan Friedman Clinical Impression: Lung mass Respiratory failure Qualifiers: Chronicity: acute on chronic Respiratory failure complication: hypoxia Qualified Code(s): J96.21 - Acute and chronic respiratory failure with hypoxia Condition: Stable Sign Out Sign Out Data: Patient Sign Out occurred on 08/24/21 at 06:33. Patient's care was discussed, and care was transferred from to Kevin Park MD. Coding Level of Care Code ED Educational Technician for Chg Fwd Documented by User: Kevin Park MD 08/24/21 06:42 HPI - SOB/Dyspnea General: Chief Complaint: Shortness of Breath/Dyspnea Stated Complaint: SOB Time Seen by Provider: 08/24/21 02:31 PFSH ED PFSH: Medical History COPD (chronic obstructive pulmonary disease) Degenerative joint disease of spine History of migraine Lung mass Pneumonia Tuberculosis She was treated for tuberculosis in 2009. Surgical History History of appendectomy History of cholecystectomy History of hysterectomy with oophorectomy History of surgery on arm Family History Father Colorectal cancer Mother COPD (chronic obstructive pulmonary disease) Social History Smoking and tobacco status: current every day smoker cigarettes Packs smoked per day: 1 [ Other cigarette details: Former 1 to 2 packs/day] Alcohol intake: current Course Vital Signs: Vital signs: Vital Signs Temperature 98.3 F 08/25/21 00:00 Pulse Rate 119 H 08/25/21 00:00 Respiratory Rate 20 H 08/25/21 00:54 Blood Pressure 113/74 08/25/21 00:00 Pulse Oximetry 90 08/25/21 00:00 MDM - SOB/Dyspnea Medical Decision Making 61-year-old lady who is very oxygen dependent. Her power is out at home, and she has no oxygen. She presents extremely short of breath due to this. She is also very tachycardic in the 120s and 130s. Her D-dimer is 10. Her white blood cell count is 17. Hemoglobin 11. BUN and creatinine are 44 and 1 respectively. She is being given IV fluids. She is on oxygen. Chest x-ray reveals a pleural effusion on the right with possible infiltrate as well. Awaiting CTA result for more definitive answer. She will require admission. Addendum: This patient was signed out to me by Dr. Jolly. CT scan without acute signs of PE. Remainder of lab work and imaging reviewed. Discussed with hospitalist and they agreed patient would benefit from admission. Patient admitted in stable condition. Further evaluation management per hospitalist team. Lab Data : 08/24/21 03:10 08/24/21 03:10 Labs/Radiology: Radiology Impressions Chest X-Ray 08/24/21 03:05 IMPRESSION: 1. A right pleural effusion is again seen unchanged from 08/22/2021. 2. Patchy and strandy opacities are seen in the right lung base compatible with right basilar atelectasis versus pneumonia. 3. Stable right thoracostomy tube 4. Stable soft tissue densities overlying the right hilar region. Chest CTA 08/24/21 05:15 IMPRESSION: 1. There is no evidence for pulmonary emboli. 2. Background of severe centrilobular emphysema and pulmonary fibrosis. 3. Large right middle lobe and hilar mass as described above. Multiple rounded pulmonary masses and anterior mediastinal masses are seen as well. These appear similar to those present on 08/18/2021. 4. There is bulky cervical and mediastinal lymphadenopathy. A prominent celiac lymph node is seen as well. 5. Lobulated pleural thickening seen within the right hemithorax compatible with pleural based malignancy. 6. Decreased right pleural effusion compared with 08/18/2021. 7. Diffuse metastatic liver disease. 8. Bilateral benign appearing renal cysts. The largest is seen on the left measuring 2.7 cm. COMMENTS: Consistent with the [employer] [employer]'s Incidental Findings Committee white paper (J Am Nicole Radiol 2018): Any incidental renal lesion less than 1 cm or classified as too small to characterize, or any incidental cystic renal lesion characterized as simple-appearing, is likely benign. No follow-up imaging is recommended for these lesions per consensus recommendations based on imaging criteria. Laboratory Results WBC 16.8 10^3/uL (4.0-10.0) H 08/24/21 03:10 RBC 3.43 10^6/uL (4.1-5.3) L 08/24/21 03:10 Hgb 10.9 g/dL (11.5-15.3) L 08/24/21 03:10 Hct 33.5 % (37.0-47.0) L 08/24/21 03:10 MCV 97.7 fl (81-99) 08/24/21 03:10 MCH 31.8 pg (28.0-34.0) 08/24/21 03:10 MCHC 32.5 g/dL (30.0-36.0) 08/24/21 03:10 RDW 16.0 % (12.1-15.1) H 08/24/21 03:10 Plt Count 282 10^3/cmm (130-400) 08/24/21 03:10 MPV 10.4 fL (7.4-10.4) 08/24/21 03:10 Neut % (Auto) 87.9 % 08/24/21 03:10 Lymph % (Auto) 6.0 % 08/24/21 03:10 Chilton % (Auto) 4.4 % 08/24/21 03:10 Eos % (Auto) 0.0 % 08/24/21 03:10 Baso % (Auto) 0.1 % 08/24/21 03:10 Neut # (Auto) 14.75 10^3/uL (1.8-7.7) H 08/24/21 03:10 Lymph # (Auto) 1.0 10^3/uL (0.8-4.8) 08/24/21 03:10 [place]ilton # (Auto) 0.7 10^3/uL (0.2-0.9) 08/24/21 03:10 Eos # (Auto) 0.0 10^3/uL (0.0-0.8) 08/24/21 03:10 Baso # (Auto) 0.0 10^3/uL (0.0-0.1) 08/24/21 03:10 Nucleated RBC % (auto) 1.7 % 08/24/21 03:10 Nucleated RBCs # 0.3 /100WBC 08/24/21 03:10 D-Dimer 9.91 ug/mIFEU (0-0.59) H 08/24/21 03:10 Sodium 136 mmol/L (136-145) 08/24/21 03:10 Potassium 4.9 mmol/L (3.5-5.1) 08/24/21 03:10 Chloride 103 mmol/L (98-107) 08/24/21 03:10 Carbon Dioxide 17 mmol/L (22-29) L 08/24/21 03:10 Anion Gap 20.9 (5-19) H 08/24/21 03:10 BUN 44 mg/dL (8-23) H 08/24/21 03:10 Creatinine 1.0 mg/dL (0.5-0.9) H 08/24/21 03:10 GFR Calculation 56.0 mL/min (90-130) L 08/24/21 03:10 Glucose 116 mg/dL (65-115) H 08/24/21 03:10 Calculated Osmolality 294 mOsm/kg (285-295) 08/24/21 03:10 Lactic Acid 2.0 mmol/L (0.5-2.2) 08/24/21 03:10 Calcium 9.8 mg/dL (8.5-10.5) 08/24/21 03:10 Total Bilirubin 3.7 mg/dL (0.15-1.2) H 08/24/21 03:10 AST 283 U/L (0-32) H 08/24/21 03:10 ALT 182 U/L (0-33) H 08/24/21 03:10 Alkaline Phosphatase 1604 IU/L (35-105) H* 08/24/21 03:10 NT-Pro-B Natriuret Pep 976 pg/mL (0-125) H 08/24/21 03:10 Total Protein 5.9 g/dL (6.6-8.7) L 08/24/21 03:10 Albumin 2.7 g/dL (3.5-5.2) L 08/24/21 03:10 Globulin 3.2 g/dL (1.3-4.6) 08/24/21 03:10 Discharge Plan Discharge Patient Disposition: Admitted As Inpatient Admit Provider: Stevan Friedman Clinical Impression: Lung mass Respiratory failure Qualifiers: Chronicity: acute on chronic Respiratory failure complication: hypoxia Qualified Code(s): J96.21 - Acute and chronic respiratory failure with hypoxia Condition: Stable Sign Out Sign Out Data: Patient Sign Out occurred on 08/24/21 at 06:33. Patient's care was discussed, and care was transferred from to Kevin Park MD. Coding Level of Care Code ED Educational Technician for Nadya Godfrey
[2021-08-24] MEDS: fentaNYL 50 mcg/mL INJ 2mL 25 MCG IVP (04:48)
[2021-08-24] MEDS: ondansetron 2 mg/ML SDV 2 mL 4 MG IVP (04:48)
[2021-08-24] MEDS: levofloxacin-dextrose 5 % 750 MG/150 ML PREMIX 100 MG IV (04:54)
--- NOTE | 2021-08-24 05:15 | CTR_ITS ---
PROCEDURE INFORMATION: Exam: CTA Chest With Contrast Exam date and time: 08/24/2021 6:01 AM Age: 61 years old Clinical indication: Shortness of breath; Prior surgery; Surgery type: Appy, gb, port; Additional info: Chest pain, SOB TECHNIQUE: Imaging protocol: Computed tomographic angiography of the chest with contrast. 3D rendering (Not supervised by radiologist): MIP and/or 3D reconstructed images were created by the technologist. Radiation optimization: All CT scans at this facility use at least one of these dose optimization techniques: automated exposure control; mA and/or kV adjustment per patient size (includes targeted exams where dose is matched to clinical indication); or iterative reconstruction. Contrast material: OMNI 350; Contrast volume: 71 ml; Contrast route: INTRAVENOUS (IV); COMPARISON: CT angio chest PE protcl [id number] 08/07/2021 5:40 PM RADIATION DOSE METRICS: Total DLP (mGy-cm): 585.14 FINDINGS: Tubes, catheters and devices: A right thoracostomy tube is present with its tip in the right apical region. Pulmonary arteries: Normal. No pulmonary emboli. Aorta: Unremarkable. No aortic aneurysm. No aortic dissection. Lungs: There is a background of severe centrilobular emphysema and pulmonary fibrosis. There is a prominent soft tissue attenuation mass within the right pulmonary hilum measuring approximately 9.5 cm AP dimension by 6.4 cm transverse dimension and approximately 8.2 cm craniocaudal dimension. There are additional rounded soft tissue attenuation mass seen within the right middle lobe. Pleural spaces: There is irregular pleural thickening seen within the parietal pleura and extending along the major fissure compatible with pleural based malignancy. Lobulated soft tissue attenuation mass is also seen within the anterior mediastinum. These findings are similar to those present on 08/18/2021. There is a decreased right pleural effusion compared with 08/18/2021. Heart: Unremarkable. No cardiomegaly. No pericardial effusion. Lymph nodes: There is bulky cervical and mediastinal lymphadenopathy. Prominent celiac lymph node is seen measuring 1.5 cm transverse dimension. Liver: There are multiple hypoattenuation lesions seen within the hepatic parenchyma compatible with diffuse metastatic disease. Kidneys and ureters: There are hypoattenuation cystic lesions seen within both kidneys, the largest cyst is seen on the posterior aspect of the left kidney measuring 2.7 cm. Bones/joints: Unremarkable. No acute fracture. Soft tissues: Unremarkable. CT/CT angio chest PE protcl [id number] IMPRESSION: 1. There is no evidence for pulmonary emboli. 2. Background of severe centrilobular emphysema and pulmonary fibrosis. 3. Large right middle lobe and hilar mass as described above. Multiple rounded pulmonary masses and anterior mediastinal masses are seen as well. These appear similar to those present on 08/18/2021. 4. There is bulky cervical and mediastinal lymphadenopathy. A prominent celiac lymph node is seen as well. 5. Lobulated pleural thickening seen within the right hemithorax compatible with pleural based malignancy. 6. Decreased right pleural effusion compared with 08/18/2021. 7. Diffuse metastatic liver disease. 8. Bilateral benign appearing renal cysts. The largest is seen on the left measuring 2.7 cm. COMMENTS: Consistent with the [employer]'s Incidental Findings Committee white paper (J Am Nicole Radiol 2018): Any incidental renal lesion less than 1 cm or classified as too small to characterize, or any incidental cystic renal lesion characterized as simple-appearing, is likely benign. No follow-up imaging is recommended for these lesions per consensus recommendations based on imaging criteria.
[2021-08-24] MEDS: sodium chloride 0.9% 1,000 ML 999 ML IV (05:38)
[2021-08-24] MEDS: morphine 4 mg/mL SDV 1 mL IVP (05:47)
[2021-08-24] MEDS: iodixanol 320 mg/mL 100mL Btl IV (06:00)
--- NOTE | 2021-08-24 09:55 | P.HP_ITS ---
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 Of note, patient had been discharged only several hours prior after being hospitalized for right-sided malignant pleural effusion s/p PleurX on 08/18, community acquired pneumonia on PO abx, acute on chronic COPD exacerbation on steroids, newly diagnosed metastatic small cell carcinoma of lung with metastasis to liver per US-guided liver bx on 08/19 with port placement on 08/22 in anticipation of initiation of chemotherapy this week. During her last hospitalization placement options were discussed but refused by patient and spouse. Spouse is not currently present. Patient reports there was no electricity at home and her oxygen was not working. This issue arose during her last hospitalization but spouse reported electric was out only in part of the house. He is not currently present to provide update to their home situation and patient is unsure. 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 She does endorse chronic shortness of breath, chronic cough, and chronic back pain. Denies fevers, chills, nausea, emesis or abdominal pains. Review of Systems Narrative: A complete review of systems was obtained and is negative except as stated in HPI. Medications/Allergies Home Medications Medication Instructions Recorded Confirmed Last Taken Type albuterol sulfate 90 mcg/actuation 1 inh INHALATION Q6H PRN #8.5 g 08/11/21 08/18/21 Unknown Rx aerosol inhaler fluticasone 100 mcg-salmeterol 50 1 inh INHALATION BID #60 ea 08/11/21 08/18/21 Unknown Rx mcg/dose blistr powdr for inhalation (Advair Diskus) amoxicillin 875 mg-potassium 1 tab PO BID #19 tab 08/23/21 Unknown Rx clavulanate 125 mg tablet hydrocodone 10 mg-acetaminophen 1 tab PO Q4H PRN 7 Days #42 tab 08/23/21 Unknown Rx 325 mg tablet metoprolol tartrate 25 mg tablet 25 mg PO BID@0900,2100 30 Days #30 08/23/21 Unknown Rx tab morphine 15 mg tablet,extended 15 mg PO BID 7 Days #14 tab 08/23/21 Unknown Rx release ondansetron 4 mg disintegrating 4 mg PO Q8H PRN 7 Days #20 tab 08/23/21 Unknown Rx tablet polyethylene glycol 3350 17 17 g PO DAILY #510 g 08/23/21 Unknown Rx gram/dose oral powder (Miralax) prednisone 10 mg tablets in a dose See Rx Instructions .ROUTE 08/23/21 Unknown Rx pack .COMPLEX #36 ea sennosides 8.6 mg tablet (Senna 17.2 mg PO BID #120 tab 08/23/21 Unknown Rx Lax) Allergies Allergy/AdvReac Type Severity Reaction Status Date / Time aspirin Allergy ADR-Nausea Verified 08/07/21 16:22 oxycodone [From OxyContin] Allergy ADR-Halluci Verified 08/07/21 16:21 nating trazodone Allergy ADR-Headach Verified 08/07/21 16:22 e PFSH Acute PFSH: Medical History (Updated 08/24/21 @ 10:17 by Umesh Stoll MD) COPD (chronic obstructive pulmonary disease) Degenerative joint disease of spine History of migraine Lung mass Pneumonia Tuberculosis She was treated for tuberculosis in 2009. Surgical History History of appendectomy History of cholecystectomy History of hysterectomy with oophorectomy History of surgery on arm Family History (Updated 08/24/21 @ 10:12 by Umesh Stoll MD) Father Colorectal cancer Mother COPD (chronic obstructive pulmonary disease) Social History Smoking and tobacco status: current every day smoker cigarettes Packs smoked per day: 1 [ Other cigarette details: Former 1 to 2 packs/day] Alcohol intake: current Vitals/I&O/Wt Last Vital Signs Temp 98.0 F 08/24/21 02:32 Pulse 118 H 08/24/21 07:39 Resp 15 08/24/21 07:39 BP 130/86 08/24/21 07:39 Pulse Ox 98 08/24/21 07:39 08/23/21 08/24/21 08/24/21 22:59 06:59 14:59 Intake Total 150 / 150 1000 / 1000 Balance 150 / 150 1000 / 1000 Weight last 48 hrs Weight 63.049 kg Weight 55.338 kg Physical Exam Narrative: General: Patient is awake.?Frail appearing. Head:? Normocephalic. Atraumatic. EOM intact. Neck: No JVD. Cardiovascular: No murmurs. Chest port surgical incision site is closed and intact on left chest. Lungs: Breath sounds are diminished in bilateral bases. No use of accessory muscles, no crackles or wheezes.? On nasal canula support. Rt PleurX cath. Skin: No jaundice. No rashes. Abdomen: Normal bowel sounds, abdomen soft and nontender. Extremeties: No cyanosis or clubbing. Musculoskeletal: No swollen or erythematous joints. Neurological: Moves all 4 extremities. No myoclonus. Data : 08/24/21 03:10 08/24/21 03:10 Micro: Microbiology 08/24/21 04:09 Blood Culture - Preliminary Blood SPECIMEN COLLECTED 08/24/21 03:10 Blood Culture - Preliminary Blood SPECIMEN COLLECTED EKG 1: EKG computer-generated impression: Chest X-Ray 08/24/21 03:05 IMPRESSION: 1. A right pleural effusion is again seen unchanged from 08/22/2021. 2. Patchy and strandy opacities are seen in the right lung base compatible with right basilar atelectasis versus pneumonia. 3. Stable right thoracostomy tube 4. Stable soft tissue densities overlying the right hilar region. Chest CTA 08/24/21 05:15 IMPRESSION: 1. There is no evidence for pulmonary emboli. 2. Background of severe centrilobular emphysema and pulmonary fibrosis. 3. Large right middle lobe and hilar mass as described above. Multiple rounded pulmonary masses and anterior mediastinal masses are seen as well. These appear similar to those present on 08/18/2021. 4. There is bulky cervical and mediastinal lymphadenopathy. A prominent celiac lymph node is seen as well. 5. Lobulated pleural thickening seen within the right hemithorax compatible with pleural based malignancy. 6. Decreased right pleural effusion compared with 08/18/2021. 7. Diffuse metastatic liver disease. 8. Bilateral benign appearing renal cysts. The largest is seen on the left measuring 2.7 cm. COMMENTS: Consistent with the [employer]'s Incidental Findings Committee white paper (J Am Nicole Radiol 2018): Any incidental renal lesion less than 1 cm or classified as too small to characterize, or any incidental cystic renal lesion characterized as simple-appearing, is likely benign. No follow-up imaging is recommended for these lesions per consensus recommendations based on imaging criteria. A&P Assessment and plan (1) Malignant small cell cancer: 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 Status post port placement on 08/22. Evaluated by Dr. Albrecht on her last hospitalizations with plan to start carboplatinum/etoposide this week. Had appointment on 08/[address] Albrecht which will need to be canceled, anticipate probable inpatient oncology consult tomorrow. Status: Acute (2) Recurrent pleural effusion on right: Secondary to known small cell carcinoma. Status post Pleurx catheter placement on 08/18. Routine drain care and daily draining of effusion. Status: Acute (3) Failure to thrive: Patient is unlikely to be able to care for herself. Unclear if will be able to provide the care that she needs. Left physical therapy evaluate make recommendations. Case management consultation. Status: Acute (4) Pneumonia: Continue Augmentin. Status: Acute (5) Respiratory failure: Supplemental oxygen support for SPO2 goal of 88 to 96%. Status: Acute Qualifiers: Chronicity: acute on chronic Respiratory failure complication: hypoxia Qualified Code(s): J96.21 - Acute and chronic respiratory failure with hypoxia (6) COPD (chronic obstructive pulmonary disease): Acute on chronic COPD exacerbation. Improving. Continue prednisone. Status: Acute (7) Back pain: Chronic malignant pain. Continue morphine ER scheduled. Change hydrocodone/acetaminophen to morphine IR as needed. Continue bowel regiment with senna and MiraLAX. Status: Acute (8) Debility: Physical therapy consultation as above. Treat underlying medical conditions. Status: Acute (9) Liver masses: Secondary to known small cell carcinoma. Status: Acute (10) Lung mass: Secondary to known small cell carcinoma. Status: Acute Plan DVT ppx: Lovenox Attestations Medical Necessity Statement*: Patient's hospitalization is likely to cross 2 midnights as there is currently no safe discharge plan Dr. Albrecht may initiate chemotherapy given her continued decompensation and debility. Coding Level of Care Code Acute Passenger Attendant for [facility] Fwd Diagnoses Malignant small cell cancer C80.1 Back pain M54.9 Debility R53.81 Liver masses R16.0 Recurrent pleural effusion on right J90 Respiratory failure J96.21 Chronicity: acute on chronic Respiratory failure complication: hypoxia Lung mass R91.8 COPD (chronic obstructive pulmonary disease) J44.9 Pneumonia J18.9 Failure to thrive
[2021-08-24] MEDS: predniSONE 20 mg Tablet 40 MG PO (10:44)
[2021-08-24] MEDS: polyethylene glycol 3350 Pkt 17 gm PO (10:44)
[2021-08-24] MEDS: enoxaparin 40 mg/0.4 mL Syringe SUBCUT (10:44)
[2021-08-24] MEDS: morphine IR 15 mg Tablet PO ×2 (10:44→16:24)
[2021-08-24] MEDS: ondansetron 4 MG Tablet PO (16:24)
[2021-08-24] MEDS: morphine ER (12 HR) 15 mg Tablet PO (18:08)
[2021-08-24] MEDS: sennosides 8.6 mg Tablet 17.2 MG PO (18:08)
[2021-08-24] MEDS: amoxicillin-clav 875-125 mg Tablet 1 TAB PO (18:08)
[2021-08-24] MEDS: metoprolol tartrate 25 mg Tablet PO (21:00)
[2021-08-25] VITALS (20 sets, daily range): BP systolic 100–135; BP diastolic 70–80; PULSE 115–132; RESP 14–24; TEMP 36.3–36.9; O2SAT 88–96
[2021-08-25] MEDS: morphine IR 15 mg Tablet PO ×3 (00:54→21:50)
--- NOTE | 2021-08-25 04:23 | PC.NURSE ---
This nurse has checked on patient multiple times during shift and nasal cannula has been off patient. Education was provided about wearing oxygen since sats are high 80s. Nurse was notified too.
[2021-08-25] MEDS: amoxicillin-clav 875-125 mg Tablet 1 TAB PO (08:42)
[2021-08-25] MEDS: predniSONE 20 mg Tablet 40 MG PO (08:42)
[2021-08-25] MEDS: sennosides 8.6 mg Tablet 17.2 MG PO ×2 (08:43→18:14)
[2021-08-25] MEDS: morphine ER (12 HR) 15 mg Tablet PO ×2 (08:43→18:14)
--- NOTE | 2021-08-25 08:48 | PC.NURSE ---
Patient is able to tell me her name and date of . Patient also responds appropriately to her at bedside at this time. Patient is taking her oxygen off and stating, I don't want to wear it. Patient is laying over her feet and doesn't hardly want to sit up for this nurse to take her medication. Eventually patient does take her medication.
--- NOTE | 2021-08-25 09:32 | PC.NURSE ---
Report received from Miguelina heart
[2021-08-25 10:55] LABS: ABG PCO2 35.9 mmHg (35-45); ABG PH Result 7.36 (7.35-7.45); Arterial Blood Gas Hematocrit 32.4 % (37-47); Base Excess ABG -4.8 mmol/L (-2.0-2.0); Blood Gas Allen Test Pos; Blood Gas Operator Identificat BD; Blood Gas Sample Site Brachial, right; Blood Gas Sample Type Arterial; HCO3 ABG 20.2 mmol/L (22-26); Oxygen Device NC; PO2 ABG 79.7 mmHg (80.0-100.0)
--- NOTE | 2021-08-25 11:00 | PC.NURSE ---
Patient refused to have Conrad Catheter placed. Patient states, I use the bedpan just fine. Patient also refused to take her Lovenox shot as well.
--- NOTE | 2021-08-25 13:36 | PM.PN ---
Subjective Subjective: Patient was seen this morning, at bedside, currently on nasal cannula, she is alert oriented x3, complains of shortness of breath, according to nursing staff at times she takes off her oxygen, I discussed her goals of care, at bedside, she wants to continue to remain a full code, she wants to pursue treatment, she does not have an appetite, she feels weak, fatigued, tired, has a cough, she did not eat much of her breakfast this morning, she tells me she hurts all over Vitals/I&O/Wt Last Vital Signs Temp 97.7 F 08/25/21 11:16 Pulse 122 H 08/25/21 11:16 Resp 20 H 08/25/21 11:16 BP 135/79 08/25/21 11:16 Pulse Ox 96 08/25/21 11:16 08/24/21 08/25/21 08/25/21 22:59 06:59 14:59 Intake Total 240 / 1240 0 / 0 Output Total 100 / 500 540 / 1040 Balance -100 / 500 -300 / 200 0 / 0 Weight last 48 hrs Weight 63.049 kg Weight 55.338 kg Physical Exam Const: COMMON NORMALS: no acute distress and patient oriented x3 GENERAL APPEARANCE: frail appearing NUTRITIONAL APPEARANCE: cachectic Resp: COMMON NORMALS: normal respiratory effort, No retractions, No use of accessory muscles and clear to auscultation bilaterally AUSCULTATION: clear to auscultation bilaterally Cardio: COMMON NORMALS: regular rate, regular rhythm, S1 normal heart sound present and S2 normal heart sound present RATE: regular rate RHYTHM: regular rhythm HEART SOUNDS: S1 normal heart sound present and S2 normal heart sound present GI: COMMON NORMALS: Normal to inspection, nondistended, normoactive bowel sounds present, Soft to palpation and non-tender PALPATION: Yes Soft to palpation Extremity: COMMON NORMALS: no pedal edema Neuro: COMMON NORMALS: patient oriented x3 Psych: COMMON NORMALS: mental status grossly normal Data : 08/24/21 03:10 08/24/21 03:10 Micro: Microbiology 08/24/21 04:09 Blood Culture - Preliminary Blood NEGATIVE TO DATE 08/24/21 03:10 Blood Culture - Preliminary Blood NEGATIVE TO DATE A&P Assessment and plan (1) Malignant small cell cancer: 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 Status post port placement on 08/22. Evaluated by Dr. Albrecht on her last hospitalizations with plan to start carboplatinum/etoposide this week. Had appointment on 08/[address] Albrecht which will need to be canceled, discussed with Dr. Albrecht, he will see her tomorrow to see if she is a candidate for inpatient chemotherapy -Start D5 normal saline at 75 cc an hour -DuoNeb treatments, budesonide, consult respiratory therapy -Consult speech therapy -Change to general diet, boost twice daily, start mirtazapine at bedtime to stimulate appetite -Does have sinus tachycardia, EKG showing short TN intervals, has a history of this, no evidence of pulm emboli, continue to monitor, telemetry monitoring -Order lactic acid, troponin series, EKG series, Pro-Noel, CRP, sed rate, follow-up blood cultures, will broaden antibiotic coverage to Zosyn Status: Acute (2) Recurrent pleural effusion on right: Secondary to known small cell carcinoma. Status post Pleurx catheter placement on 08/18. Routine drain care and daily draining of effusion. Status: Acute (3) Failure to thrive: Patient is unlikely to be able to care for herself. Unclear if will be able to provide the care that she needs. Left physical therapy evaluate make recommendations. Case management consultation. Status: Acute (4) Pneumonia: Continue Augmentin. Status: Acute (5) Respiratory failure: Supplemental oxygen support for SPO2 goal of 89 [address] angiogram of the chest 1. There is no evidence for pulmonary emboli. 2. Background of severe centrilobular emphysema and pulmonary fibrosis. 3. Large right middle lobe and hilar mass as described above. Multiple rounded pulmonary masses and anterior mediastinal masses are seen as well. These appear similar to those present on 08/18/2021. 4. There is bulky cervical and mediastinal lymphadenopathy. A prominent celiac lymph node is seen as well. 5. Lobulated pleural thickening seen within the right hemithorax compatible with pleural based malignancy. 6. Decreased right pleural effusion compared with 08/18/2021. 7. Diffuse metastatic liver disease. 8. Bilateral benign appearing renal cysts. The largest is seen on the left measuring 2.7 cm. -Oxygen therapy, but budesonide, ipratropium, prednisone -Monitor respiratory status -Respiratory therapy -BiPAP as needed Status: Acute Qualifiers: Chronicity: acute on chronic Respiratory failure complication: hypoxia Qualified Code(s): J96.21 - Acute and chronic respiratory failure with hypoxia (6) COPD (chronic obstructive pulmonary disease): Acute on chronic COPD exacerbation. Improving. Continue prednisone. Status: Acute (7) Back pain: Chronic malignant pain. Continue morphine ER scheduled. Change hydrocodone/acetaminophen to morphine IR as needed. Continue bowel regiment with senna and MiraLAX. Status: Acute (8) Debility: Physical therapy consultation as above. Treat underlying medical conditions. Status: Acute (9) Liver masses: Secondary to known small cell carcinoma. Status: Acute (10) Lung mass: Secondary to known small cell carcinoma. 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: Status: Acute (13) Protein calorie malnutrition: Status: Acute Plan DVT ppx: Lovenox MARTINA, IV fluids Recent history of pneumonia, broaden our coverage to Zosyn Transaminitis, with elevated bilirubin, secondary to hepatic metastasis repeat blood work Attestations Medical Necessity Statement*: Patient requires hospitalization for respiratory failure, pneumonia, deconditioning, protein calorie malnutrition, possible inpatient chemotherapy Coding Level of Care Code Acute Brand Strategist for [facility] Fwd Diagnoses Malignant small cell cancer C80.1 Recurrent pleural effusion on right J90 Failure to thrive Pneumonia J18.9 Respiratory failure J96.21 Chronicity: acute on chronic Respiratory failure complication: hypoxia COPD (chronic obstructive pulmonary disease) J44.9 Back pain M54.9 Debility R53.81 Liver masses R16.0 Lung mass R91.8 Muscular deconditioning R29.898 Cancer cachexia R64 Protein calorie malnutrition E46
--- NOTE | 2021-08-25 13:44 | ECG_ITS ---
[facility] Test Date: 2021-08-25 Pat Name: Yanci Desai Department: Room: 272 Gender: Female Swimming Coach Or Instructor: : [id number] Requested By: Shaheen Shook Order Number: [id number] Dion MD: Christi Bolton M.D. Measurements Intervals [place] Rate: 129 P: 52 MT: 112 QRS: 44 QRSD: 64 T: 32 QT: 284 QTc: 417 Interpretive Statements SINUS TACHYCARDIA WITH SHORT MT INTERVAL LOW QRS VOLTAGE IN PRECORDIAL LEADS Compared to ECG 08/24/2021 03:19:53 Low QRS voltage now present Electronically Signed On 08-25-2021 17:35:04 CDT by Christi Bolton M.D. [id number]
--- NOTE | 2021-08-25 14:04 | PC.NURSE ---
Report to Rachel JACOBS
[2021-08-25 15:03] LABS: Basophils % 0.2 %; Eosinophils # 0.2 10^3/uL (0.0-0.8); Eosinophils % 1.1 %; Hematocrit 33.3 % (37.0-47.0); Hemoglobin 10.6 g/dL (11.5-15.3); Lymphocytes # 0.8 10^3/uL (0.8-4.8); Mean Corpuscular HGB Conc 31.8 g/dL (30.0-36.0); Mean Corpuscular Hemoglobin 31.5 pg (28.0-34.0); Mean Corpuscular Volume 99.1 fl (81-99); Mean Platelet Volume 10.6 fL (7.4-10.4); Monocytes # 0.8 10^3/uL (0.2-0.9); Monocytes % 4.3 %; Neutrophils # 16.35 10^3/uL (1.8-7.7); Neutrophils % 86.8 %; Nucleated Red Blood Cells # 0.4 /100WBC; Nucleated Red Blood Cells % 2.2 %; Platelet Count 309 10^3/cmm (130-400); Red Blood Count 3.36 10^6/uL (4.1-5.3); Red Cell Distribution Width 17.1 % (12.1-15.1); White Blood Count 18.8 10^3/uL (4.0-10.0)
[2021-08-25 15:05] LABS: Erythrocyte Sedimentation Rate 70 mm/hr (0-15)
[2021-08-25 15:21] LABS: Slide Review Slide Review Perform
[2021-08-25 15:42] LABS: Procalcitonin 1.53 ng/mL (0-0.5)
[2021-08-25 15:44] LABS: Troponin(5th) Baseline 19 ng/L (0-10)
[2021-08-25 15:49] LABS: Chloride 106 mmol/L (98-107); Globulin 2.9 g/dL (1.3-4.6); Sodium 138 mmol/L (136-145)
[2021-08-25] MEDS: dextrose 5%-sod chloride 0.9% 1,000 ML 75 ML IV (16:00)
[2021-08-25 16:03] LABS: Potassium 5.3 mmol/L (3.5-5.1)
[2021-08-25] MEDS: piperacillin-tazobactam 3.375 GM in sodium chloride 0.9% (plus) 50 ML IV (16:04)
[2021-08-25 16:05] LABS: Alkaline Phosphatase 1592 IU/L (35-105)
[2021-08-25 16:07] LABS: Alanine Aminotransferase 140 U/L (0-33); Albumin Level 2.7 g/dL (3.5-5.2); Anion Gap 23.3 (5-19); Blood Urea Nitrogen 50 mg/dL (8-23); C Reactive Protein 66.4 mg/L (0.0-4.9); Carbon Dioxide 14 mmol/L (22-29); Glucose 124 mg/dL (65-115); Osmolality Calculated 301 mOsm/kg (285-295); Total Bilirubin 3.7 mg/dL (0.15-1.2); Total Protein 5.6 g/dL (6.6-8.7)
[2021-08-25 16:09] LABS: Aspartate Amino Transferase 184 U/L (0-32)
[2021-08-25 17:13] LABS: Troponin 5 2HR 19.84 ng/L (0-10); Troponin 5 2HR Delta 0.84 ABS# (0-10)
--- NOTE | 2021-08-25 19:19 | PC.NURSE ---
i reported low temp 97.3 and high pulse 128 to nurse
[2021-08-25 21:46] LABS: Troponin 5 6HR 19.67 ng/L (0-10); Troponin 5 6HR Delta 0.67 ng/L (0-12)
[2021-08-25] MEDS: mirtazapine 15 mg Tablet PO (21:50)
[2021-08-25] MEDS: metoprolol tartrate 25 mg Tablet PO (21:50)
[2021-08-26] VITALS (14 sets, daily range): BP systolic 85–132; BP diastolic 61–92; PULSE 68–140; RESP 8–18; TEMP 35.7–37.2; O2SAT 77–98
[2021-08-26] MEDS: piperacillin-tazobactam 3.375 GM in sodium chloride 0.9% (plus) 50 ML IV ×3 (00:15→16:04)
[2021-08-26] MEDS: morphine IR 15 mg Tablet PO (04:36)
--- NOTE | 2021-08-26 04:42 | PC.NURSE ---
Patient given morphine for S/S of air hunger and c/o pain. While in the room,patient took off her oxygen tubing, stating she wanted to have it off so she could breathe, this nurse assisted her with putting it back on and educated her about leaving her oxygen on.
--- NOTE | 2021-08-26 07:00 | XR_ITS ---
WS: [id number] PORTABLE CHEST HISTORY: sob COMPARISON: 08/24/2021 Left-sided Mediport with tip terminating in the SVC. RIGHT thoracostomy tube is unchanged in position . Tip is directed superiorly. Partial obscuration of the RIGHT lung. Combination of a small layering RIGHT pleural effusion, areas of atelectasis and pleural nodularity. Additional nodule at the RIGHT apex. The focal area of consoli dation in the central RIGHT lung is increasing in size over the last several examinations. Patient garcia s a known neoplastic process in the RIGHT thorax. No pneumothorax. Cardiac size: Normal. Mediastinum/Aorta: Mild atherosclerosis aorta. No osseous abnormality seen. XR/XR chest 1V portable [id number] IMPRESSION: 1. RIGHT thoracostomy tube and the LEFT Mediport are unchanged in position. 2. Continued partial obscuration and consolidation throughout the RIGHT lung. Patient has a known neoplastic process involving the lung and pleura. Majority of these findings are probably related to the pleural and lung neoplastic proce ss and the central mediastinal mass.
[2021-08-26] MEDS: dextrose 5%-sod chloride 0.9% 1,000 ML 75 ML IV ×2 (07:58→21:25)
[2021-08-26] MEDS: polyethylene glycol 3350 Pkt 17 gm PO (08:01)
[2021-08-26] MEDS: metoprolol tartrate 25 mg Tablet PO (08:02)
[2021-08-26] MEDS: morphine ER (12 HR) 15 mg Tablet PO (08:02)
[2021-08-26] MEDS: predniSONE 20 mg Tablet 40 MG PO (08:02)
[2021-08-26] MEDS: sennosides 8.6 mg Tablet 17.2 MG PO (08:02)
[2021-08-26 09:28] LABS: Basophils % 0.2 %; Hematocrit 33.6 % (37.0-47.0); Hemoglobin 10.5 g/dL (11.5-15.3); Lymphocytes # 0.9 10^3/uL (0.8-4.8); Lymphocytes % 4.4 %; Mean Corpuscular HGB Conc 31.3 g/dL (30.0-36.0); Mean Corpuscular Hemoglobin 31.8 pg (28.0-34.0); Mean Corpuscular Volume 101.8 fl (81-99); Mean Platelet Volume 10.1 fL (7.4-10.4); Monocytes # 0.9 10^3/uL (0.2-0.9); Monocytes % 4.6 %; Neutrophils # 17.06 10^3/uL (1.8-7.7); Neutrophils % 88.1 %; Nucleated Red Blood Cells # 0.4 /100WBC; Nucleated Red Blood Cells % 2.1 %; Platelet Count 266 10^3/cmm (130-400); Red Cell Distribution Width 17.6 % (12.1-15.1); White Blood Count 19.4 10^3/uL (4.0-10.0)
[2021-08-26 09:38] LABS: INR 1.56 (0.8-1.2)
[2021-08-26 09:47] LABS: D Dimer 12.58 ug/mIFEU (0-0.59)
[2021-08-26 09:52] LABS: Alanine Aminotransferase 141 U/L (0-33); Albumin Level 2.7 g/dL (3.5-5.2); Anion Gap 17.6 (5-19); Aspartate Amino Transferase 221 U/L (0-32); Blood Urea Nitrogen 50 mg/dL (8-23); C Reactive Protein 54.4 mg/L (0.0-4.9); Calcium 9.7 mg/dL (8.5-10.5); Carbon Dioxide 19 mmol/L (22-29); Chloride 108 mmol/L (98-107); Globulin 3.2 g/dL (1.3-4.6); Glucose 153 mg/dL (65-115); Magnesium 2.6 mg/dL (1.7-2.3); Osmolality Calculated 306 mOsm/kg (285-295); Phosphorus 3.7 mg/dL (2.5-4.5); Potassium 4.6 mmol/L (3.5-5.1); Sodium 140 mmol/L (136-145); Total Bilirubin 4.2 mg/dL (0.15-1.2); Total Protein 5.9 g/dL (6.6-8.7)
[2021-08-26 09:54] LABS: Lactate (Lactic Acid level) 2.1 mmol/L (0.5-2.2)
[2021-08-26 10:01] LABS: NT Pro B Type Natriuretic Pept 764 pg/mL (0-125)
[2021-08-26 10:05] LABS: Alkaline Phosphatase 1716 IU/L (35-105)
[2021-08-26] MEDS: enoxaparin 40 mg/0.4 mL Syringe SUBCUT (11:05)
[2021-08-26] MEDS: morphine 10 mg/0.5 mL oral liq UD 5 MG PO ×3 (12:57→21:26)
--- NOTE | 2021-08-26 14:23 | P.PN_ITS ---
Subjective Subjective: Patient was seen this morning, at bedside, she is less vocal, sitting up in tripod position, she had poor appetite overnight alert to person, not to place, not to time, she is on 5 L, has intercostal retractions nasal flaring, has been at bedside told me that Dr. Albrecht saw her this morning, he did not feel that she could tolerate chemotherapy, plans on proceeding with hospice he tells that he wants to take her home on hospice, discussed risk and benefits of hospice he voiced understanding, all questions answered agreed to proceed, they are going to try to arrange hospice at home he tells me Vitals/I&O/Wt Last Vital Signs Temp 98.7 F 08/26/21 08:00 Pulse 119 H 08/26/21 11:17 Resp 10 L 08/26/21 11:17 BP 132/88 08/26/21 11:17 Pulse Ox 89 L 08/26/21 11:17 08/25/21 08/26/21 08/26/21 22:59 06:59 14:59 Intake Total 338.75 / 588.75 170 / 758.75 50 / 50 Output Total 175 / 175 350 / 525 100 / 100 Balance 163.75 / 413.75 -180 / 233.75 -50 / -50 Physical Exam Const: COMMON NORMALS: no acute distress EXAM LIMITATIONS: altered mental status GENERAL APPEARANCE: ill appearing and frail appearing NUTRITIONAL APPEARANCE: cachectic ORIENTATION/CONSCIOUSNESS: Yes awake Resp: OTHER: Decreased breath sounds in all lung marie Cardio: COMMON NORMALS: regular rhythm, S1 normal heart sound present and S2 normal heart sound present RATE: tachycardic RHYTHM: regular rhythm HEART SOUNDS: S1 normal heart sound present and S2 normal heart sound present GI: COMMON NORMALS: Normal to inspection, nondistended, normoactive bowel sounds present, Soft to palpation and non-tender PALPATION: Yes Soft to palpation Extremity: COMMON NORMALS: no pedal edema Psych: COMMON NORMALS: mental status grossly normal Urinary Catheter Management: Conrad: Cath Placed During This Visit: yes Reason for Continuing Indwelling Catheter: Hospice/Comfort/Palliative Care Urinary Catheter Date of Insertion: 08/25/21 Urinary Catheter Time of Insertion: 17:27 Data : 08/26/21 09:12 08/26/21 09:12 Micro: Microbiology 08/25/21 17:30 MRSA Culture - Final Nose A&P Assessment and plan (1) Malignant small cell cancer: Proceeding with hospice 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 Status post port placement on 08/22. Evaluated by Dr. Albrecht on her last hospitalizations with plan to start carboplatinum/etoposide this week. Had appointment on 08/[address] Albrecht which will need to be canceled, discussed with Dr. Albrecht, he will see her tomorrow to see if she is a candidate for inpatient chemotherapy -Start D5 normal saline at 75 cc an hour -DuoNeb treatments, budesonide, consult respiratory therapy -Consult speech therapy -Change to general diet, boost twice daily, start mirtazapine at bedtime to stimulate appetite -Does have sinus tachycardia, EKG showing short CA intervals, has a history of this, no evidence of pulm emboli, continue to monitor, telemetry monitoring Continue Zosyn Status: Acute (2) Recurrent pleural effusion on right: Secondary to known small cell carcinoma. Status post Pleurx catheter placement on 08/18. Routine drain care and daily draining of effusion. Status: Acute (3) Failure to thrive: Patient is unlikely to be able to care for herself. Unclear if will be able to provide the care that she needs. Left physical therapy evaluate make recommendations. Case management consultation. Status: Acute (4) Pneumonia: Continue Augmentin. Status: Acute (5) Respiratory failure: Supplemental oxygen support for SPO2 goal of [address] angiogram of the chest 1. There is no evidence for pulmonary emboli. 2. Background of severe centrilobular emphysema and pulmonary fibrosis. 3. Large right middle lobe and hilar mass as described above. Multiple rounded pulmonary masses and anterior mediastinal masses are seen as well. These appear similar to those present on 08/18/2021. 4. There is bulky cervical and mediastinal lymphadenopathy. A prominent celiac lymph node is seen as well. 5. Lobulated pleural thickening seen within the right hemithorax compatible with pleural based malignancy. 6. Decreased right pleural effusion compared with 08/18/2021. 7. Diffuse metastatic liver disease. 8. Bilateral benign appearing renal cysts. The largest is seen on the left measuring 2.7 cm. -Oxygen therapy, but budesonide, ipratropium, prednisone -Monitor respiratory status -Respiratory therapy -BiPAP as needed Status: Acute Qualifiers: Chronicity: acute on chronic Respiratory failure complication: hypoxia Qualified Code(s): J96.21 - Acute and chronic respiratory failure with hypoxia (6) COPD (chronic obstructive pulmonary disease): Acute on chronic COPD exacerbation. Improving. Continue prednisone. Status: Acute (7) Back pain: Chronic malignant pain. Continue morphine ER scheduled. Change hydrocodone/acetaminophen to morphine IR as needed. Continue bowel regiment with senna and MiraLAX. Status: Acute (8) Debility: Physical therapy consultation as above. Treat underlying medical conditions. Status: Acute (9) Liver masses: Secondary to known small cell carcinoma. Status: Acute (10) Lung mass: Secondary to known small cell carcinoma. 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: Status: Acute (13) Protein calorie malnutrition: Status: Acute Plan DVT ppx: Lovenox MARTINA, IV fluids Recent history of pneumonia, broaden our coverage to Zosyn Transaminitis, with elevated bilirubin, secondary to hepatic metastasis repeat blood work Attestations Medical Necessity Statement*: Patient requires hospitalization for small cell lung cancer, pneumonia, deconditioning, proceeding with hospice Coding Level of Care Code Acute Administrative Services Assistant for [facility] Fwd Diagnoses Malignant small cell cancer C80.1 Recurrent pleural effusion on right J90 Failure to thrive Pneumonia J18.9 Respiratory failure J96.21 Chronicity: acute on chronic Respiratory failure complication: hypoxia COPD (chronic obstructive pulmonary disease) J44.9 Back pain M54.9 Debility R53.81 Liver masses R16.0 Lung mass R91.8 Muscular deconditioning R29.898 Cancer cachexia R64 Protein calorie malnutrition E46
[2021-08-26] MEDS: LORazepam 2 mg/mL INJ 1 mL 1 MG IVP ×2 (14:29→22:29)
--- NOTE | 2021-08-26 15:42 | PC.OT ---
PER NOTES, PATIENT ON COMFORT CARE AND TRANSITIONING TO HOSPICE. NO OT REQUIRED AT THIS TIME.
--- NOTE | 2021-08-26 18:55 | PC.NURSE ---
i reported high pulse 136 and low 02 82 to nurse
--- NOTE | 2021-08-26 23:51 | PC.NURSE ---
i reported high pulse 140 and low o2 78 to nurse
--- NOTE | 2021-08-27 00:01 | PC.NURSE ---
Patient has oxygen saturation of 77% on 5 liters, this nurse asked the patient's Kelechi if he wants us to give more oxygen via a mask, stated that we can try that if the patient can tolerate a mask he would want her to have more oxygen. This nurse applied a oxymask and titrated oxygen, to 15 liters currently. Called respiratory to see the patient to discuss possible heated high flow oxygen with the patient's .
[2021-08-27] MEDS: piperacillin-tazobactam 3.375 GM in sodium chloride 0.9% (plus) 50 ML IV (00:11)
[2021-08-27 00:35] VITALS: O2SAT 86
--- NOTE | 2021-08-27 00:37 | PC.RESP ---
patient is non-responsive with a low spo2 of 86% on a 15 liter non-rebreather. patients does not want to pursue any higher form of tx like bipap.
--- NOTE | 2021-08-27 00:38 | PC.NURSE ---
Low SPO2: Patient is on a NRB at 15L with O2 sats at 86%. Pt appears comfortable. Discussed low oxygen with Kelechi, patients and respiratory. Explained to Kelechi options that can be done to try and increase it patient's oxygen (HHF and Bipap). Pts decided to leave her on NRB right now.
[2021-08-27] MEDS: morphine 10 mg/0.5 mL oral liq UD 5 MG PO (03:44)
[2021-08-27 04:00] VITALS: BP 79/55; PULSE 139; RESP 17; TEMP 37.2; O2SAT 94
[2021-08-27 08:00] VITALS: BP 66/47; BP 70/58; PULSE 138; PULSE 143; RESP 16; RESP 18; TEMP 36.4; O2SAT 85; O2SAT 93
[2021-08-27 08:14] VITALS: PULSE 136; RESP 26; O2SAT 89
[2021-08-27] MEDS: glycopyrrolate 0.2 mg/mL SDV 2 mL IV (08:19)
[2021-08-27 10:42] VITALS: BP 90/68; PULSE 106; RESP 20; O2SAT 81
--- NOTE | 2021-08-27 11:05 | P.PN_ITS ---
Subjective Subjective: Patient was seen this morning at bedside, she is not responsive, does not respond to her name, she is on 15 L nonrebreather, no respiratory distress with nasal flaring, intercostal retractions, O2 sats in the mid 80s on 15 L nonrebreather, hypotensive blood pressures 90s over 60s, tachycardic, heart rates in 130s, is at bedside, I discussed options are available, she was proceeding with home hospice, but I feel that she is likely going to pass away here in the hospital, I feel that I done the best I can, she unfortunate has not responded to fluid therapy or antibiotic therapy, and without being aggressive which I would not advise I feel that anything else would prolong her suffering, I discussed all options available to her, he wants to stop medical interventions, he wants to proceed with comfort care wants her to remain comfortable, he does not want her to suffer, he he wants to proceed with comfort care here in the hospital, discussed risks and benefits of comfort care, he voices any, all questions answered agreed to proceed he is okay with comfort care orders, advised him that any family members that want to come and see her they can come and see her Vitals/I&O/Wt Last Vital Signs Temp 97.6 F 08/27/21 08:00 Pulse 106 H 08/27/21 10:42 Resp 20 H 08/27/21 10:42 BP 90/68 08/27/21 10:42 Pulse Ox 81 L 08/27/21 10:42 08/26/21 08/27/21 08/27/21 22:59 06:59 14:59 Intake Total 1050 / 1100 50 / 1150 Output Total 300 / 400 180 / 580 775 / 775 Balance 750 / 700 -130 / 570 -775 / -775 Physical Exam Narrative: Not responsive,, in acute respiratory failure, with nasal flaring, intercostal retractions, O2 sats in the mid 80s, on 15 L nonrebreather, blood pressures 90s over 60s, tachycardic heart rates as high as 130, tachypneic respiratory 25-30 does not respond to her voice being called, does not respond to her name, at bedside Const: EXAM LIMITATIONS: altered mental status Resp: EFFORT & INSPECTION: Yes tachypneic and Yes respiratory distress Cardio: COMMON NORMALS: regular rhythm RATE: tachycardic RHYTHM: regular rhythm GI: COMMON NORMALS: Normal to inspection, nondistended, normoactive bowel sounds present and Soft to palpation PALPATION: Yes Soft to palpation Urinary Catheter Management: Conrad: Cath Placed During This Visit: yes Reason for Continuing Indwelling Catheter: Other Urinary Catheter Date of Insertion: 08/25/21 Urinary Catheter Time of Insertion: 17:27 Data : 08/26/21 09:12 08/26/21 09:12 Micro: Microbiology 08/25/21 17:30 MRSA Culture - Final Nose A&P Assessment and plan (1) Malignant small cell cancer: Proceeding with comfort care 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 Status post port placement on 08/22. Evaluated by Dr. Albrecht on her last hospitalizations with plan to start carboplatinum/etoposide this week. Had appointment on 08/[address] Albrecht which will need to be canceled, discussed with Dr. Albrecht, he will see her tomorrow to see if she is a candidate for inpatient chemotherapy -Start D5 normal saline at 75 cc an hour -DuoNeb treatments, budesonide, consult respiratory therapy -Consult speech therapy -Change to general diet, boost twice daily, start mirtazapine at bedtime to stimulate appetite -Does have sinus tachycardia, EKG showing short MN intervals, has a history of this, no evidence of pulm emboli, continue to monitor, telemetry monitoring Continue Zosyn Status: Acute (2) Recurrent pleural effusion on right: Secondary to known small cell carcinoma. Status post Pleurx catheter placement on 08/18. Routine drain care and daily draining of effusion. Status: Acute (3) Failure to thrive: Patient is unlikely to be able to care for herself. Unclear if will be able to provide the care that she needs. Left physical therapy evaluate make recommendations. Case management consultation. Status: Acute (4) Pneumonia: Continue Augmentin. Status: Acute (5) Respiratory failure: Supplemental oxygen support for SPO2 goal of 89 [address] angiogram of the chest 1. There is no evidence for pulmonary emboli. 2. Background of severe centrilobular emphysema and pulmonary fibrosis. 3. Large right middle lobe and hilar mass as described above. Multiple rounded pulmonary masses and anterior mediastinal masses are seen as well. These appear similar to those present on 08/18/2021. 4. There is bulky cervical and mediastinal lymphadenopathy. A prominent celiac lymph node is seen as well. 5. Lobulated pleural thickening seen within the right hemithorax compatible with pleural based malignancy. 6. Decreased right pleural effusion compared with 08/18/2021. 7. Diffuse metastatic liver disease. 8. Bilateral benign appearing renal cysts. The largest is seen on the left measuring 2.7 cm. -Oxygen therapy, but budesonide, ipratropium, prednisone -Monitor respiratory status -Respiratory therapy -BiPAP as needed Status: Acute Qualifiers: Chronicity: acute on chronic Respiratory failure complication: hypoxia Qualified Code(s): J96.21 - Acute and chronic respiratory failure with hypoxia (6) COPD (chronic obstructive pulmonary disease): Acute on chronic COPD exacerbation. Improving. Continue prednisone. Status: Acute (7) Back pain: Chronic malignant pain. Continue morphine ER scheduled. Change hydrocodone/acetaminophen to morphine IR as needed. Continue bowel regiment with senna and MiraLAX. Status: Acute (8) Debility: Physical therapy consultation as above. Treat underlying medical conditions. Status: Acute (9) Liver masses: Secondary to known small cell carcinoma. Status: Acute (10) Lung mass: Secondary to known small cell carcinoma. 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: Status: Acute (13) Protein calorie malnutrition: Status: Acute Plan DVT ppx: Lovenox MARTINA, IV fluids Recent history of pneumonia, broaden our coverage to Zosyn Transaminitis, with elevated bilirubin, secondary to hepatic metastasis repeat blood work Attestations Medical Necessity Statement*: Patient requires hospitalization for comfort care Coding Level of Care Code Acute X Ray Inspector for [facility] Fwd Diagnoses Malignant small cell cancer C80.1 Recurrent pleural effusion on right J90 Failure to thrive Pneumonia J18.9 Respiratory failure J96.21 Chronicity: acute on chronic Respiratory failure complication: hypoxia COPD (chronic obstructive pulmonary disease) J44.9 Back pain M54.9 Debility R53.81 Liver masses R16.0 Lung mass R91.8 Muscular deconditioning R29.898 Cancer cachexia R64 Protein calorie malnutrition E46
--- NOTE | 2021-08-27 12:09 | PC.NURSE ---
Patient monitor shows asystole. Nurse and another nurse Bryan both verified no heart beat. Auscultated for 1 minute. Nurse advised jayy who was present in room. Time of is 1203.
--- NOTE | 2021-08-27 12:10 | PC.NURSE ---
TOD of patient 1203. Verified with Indre BEJARANO
--- NOTE | 2021-08-27 12:51 | P.DES_ITS ---
Discharge Providers DDS Date of Admission: 08/24/21 06:42 Date Summary Completed: 08/27/21 Attending Provider at Admission: Stevan Friedman DO Attending Provider at Discharge: Shaheen Shook MD Primary Care Provider: [facility] Diagnoses Hospital Diagnoses (1) Malignant small cell cancer: (2) Recurrent pleural effusion on right: (3) Failure to thrive: (4) Pneumonia: (5) Respiratory failure: Qualifiers: Chronicity: acute on chronic Respiratory failure complication: hypoxia Qualified Code(s): J96.21 - Acute and chronic respiratory failure with hypoxia (6) COPD (chronic obstructive pulmonary disease): (7) Back pain: (8) Debility: (9) Liver masses: (10) Lung mass: (11) Muscular deconditioning: (12) Cancer cachexia: (13) Protein calorie malnutrition: Reason for Visit Reason for Visit SOB Summary Summary Summary: Yanci Desai is a 61-year-old female with a past medical history significant for recently diagnosed metastatic small cell lung cancer with metastasis to liver, recurrent right-sided malignant effusion s/p PleurX catheter placement, COPD, chronic hypoxic respiratory failure, and tobacco use disorder who presents to emergency department several hours after being discharged the day prior complaining of shortness of breath due to home oxygen not working due to electrical problems at their home. Of note, patient had been discharged only several hours prior after being hospitalized for right-sided malignant pleural effusion s/p PleurX on 08/18, community acquired pneumonia on PO abx, acute on chronic COPD exacerbation on steroids, newly diagnosed metastatic small cell carcinoma of lung with metastasis to liver per US-guided liver bx on 08/19 with port placement on 08/22 in anticipation of initiation of chemotherapy this week. Patient was admitted to [facility] for acute hypoxic respiratory failure secondary to recurrent pleural effusion, aspiration pneumonia, malignant small cell cancer, with deconditioning, protein calorie malnutrition, poor functional status, encephalopathy secondary to pneumonia. She was admitted to the hospital, placed on broad-spectrum antibiotic therapy, fluid therapy, clinically monitored However her mental status continued to decline, continued to have poor appetite, decreased functional status and her respiratory status continued to worsen She was seen by oncology and was not deemed suitable for inpatient chemotherapy at this time Due to continuing declining functional status and mental status and respiratory status, family decided to pursue hospice, hospice was set up as outpatient, however patient's clinical status rapidly declined 08/27/2021. She was made comfort care, patient 1203 on 08/27/2021 Additional Data Advance directives?: No Discharge Plan Discharge Patient Disposition: Home Condition: Stable Prescriptions: No Action albuterol sulfate 90 mcg/actuation HFA aerosol inhaler 1 inh inhalation Q6H PRN (Reason: shortness of breath or wheezing) Qty: 8.5 0RF fluticasone propion-salmeterol [Advair Diskus] 100-50 mcg/dose blister with device 1 inh inhalation BID Qty: 60 0RF amoxicillin-pot clavulanate 875-125 mg tablet 1 tab PO BID Qty: 19 0RF hydrocodone-acetaminophen 10-325 mg Tablet 1 tab PO Q4H PRN (Reason: Moderate Pain) 7 Days Qty: 42 0RF morphine 15 mg Tablet Extended Release 15 mg PO BID 7 Days Qty: 14 0RF metoprolol tartrate 25 mg Tablet 25 mg PO BID@0900,2100 30 Days Qty: 30 0RF ondansetron 4 mg tablet,disintegrating 4 mg PO Q8H PRN (Reason: nausea and vomiting) 7 Days Qty: 20 0RF prednisone 10 mg tablets,dose pack See Rx Instructions .ROUTE .COMPLEX Qty: 36 0RF Rx Instructions: prednisone 5 mg: take 8 tablets (40 mg) on Day 1; 7 tablets (35 mg) on Day 2; then decrease by 1 tablet every day until finished sennosides [Senna Lax] 8.6 mg tablet 17.2 mg PO BID Qty: 120 0RF polyethylene glycol 3350 [Miralax] 17 gram/dose powder 17 g PO DAILY Qty: 510 0RF Rx Instructions: Hold for loose stools Referrals: [facility] [Outside] [facility] Michaels [Primary Care Provider] - Ole Albrecht MD [Hospitalist] - Patient Instructions: Opioid Safety DS Attestations Time Spent in /Discharge Care*: less than 30 min Quality - AMI: AMI present?: No Quality - Stroke: CVA present?: No Symptom Onset Unknown: No Quality - VTE: VTE present?: No Deep Vein Thrombosis/Pulmonary Embolism Present on Admission: No Coding Level of Care Code Acute Milk Pickup Truck Driver for [facility] Fwd Diagnoses Malignant small cell cancer C80.1 Recurrent pleural effusion on right J90 Failure to thrive Pneumonia J18.9 Respiratory failure J96.21 Chronicity: acute on chronic Respiratory failure complication: hypoxia COPD (chronic obstructive pulmonary disease) J44.9 Back pain M54.9 Debility R53.81 Liver masses R16.0 Lung mass R91.8 Muscular deconditioning R29.898 Cancer cachexia R64 Protein calorie malnutrition E46
--- NOTE | 2021-08-27 16:15 | PC.NURSE ---
3 rings removed from patient and given to patient's spouse,
[2021-08-27 16:17] VITALS: BP 0/0; PULSE 0; RESP 0; TEMP -17.7; TEMP 0; O2SAT 0
--- NOTE | 2021-08-27 16:18 | PC.NURSE ---
[facility] picked up patient at 1600 08/27/2021
== END 2021-08-27 16:18 | disposition expired | DRG 180 ==
LOC: ER 06:45 → MEDSURG 06:49
PROVIDERS: Emergency Medicine; Admitting Provider Internal Medicine; Emergency Provider Emergency Medicine; PCP Family Medicine; Visit Provider Family Medicine
DX: C34.91 Malignant neoplasm of unspecified part of right bronchus or lung (principal); J69.0 Pneumonitis due to inhalation of food and vomit; J96.21 Acute and chronic respiratory failure with hypoxia; C78.7 Secondary malignant neoplasm of liver and intrahepatic bile duct; C78.2 Secondary malignant neoplasm of pleura; J91.0 Malignant pleural effusion; J44.1 Chronic obstructive pulmonary disease with (acute) exacerbation; G93.49 Other encephalopathy; E46 Unspecified protein-calorie malnutrition; Z87.01 Personal history of pneumonia (recurrent); Z99.81 Dependence on supplemental oxygen; Z86.11 Personal history of tuberculosis; F17.210 Nicotine dependence, cigarettes, uncomplicated; G89.3 Neoplasm related pain (acute) (chronic); Z68.23 Body mass index [BMI] 23.0-23.9, adult; Z51.5 Encounter for palliative care; Z66 Do not resuscitate
CPT/HCPCS: 36415; 36600; 51702; 71045; 71275; 80053; 82247; 82248; 82803; 83605; 83735; 83880; 84100; 84145; 84484; 85025; 85378; 85610; 85651; 86140; 87040; 87641; 93005; 94640; 94664; 96365; 96372; 96375; 99285; J1650; J1956; J2060; J2270; J2405; J2543; J3010; J3490; J7030; J7512; J7611; Q0162; Q9967